=== PATIENT | female | born 1965 | race Caucasian/White ===

== ENCOUNTER → 2017-09-10 13:37 | Outpatient (REF) | payer MEDICAID, SELFPAY ==
[2017-09-10 17:54] LABS: Hemoglobin A1C 8.8 % (0.0-7.0)
[2017-09-10 18:04] LABS: Alanine Aminotransferase 21 U/L (12-78); Albumin Level 3.1 gm/dL (3.4-5.0); Albumin/Globulin Ratio 0.9 (1.1-1.8); Alkaline Phosphatase 78 U/L (46-116); Anion Gap 11.5 mEq/L (5-15); Aspartate Amino Transferase 8 U/L (15-37); Bilirubin,Total 0.3 mg/dL (0.2-1.0); Blood Urea Nitrogen 10 mg/dL (7-18); Calcium 8.4 mg/dL (8.5-10.1); Carbon Dioxide 27 mmol/L (21.0-32.0); Chloride 103 mmol/L (98-107); Chol/HDL Ratio 5.2 (1-3.5); Cholesterol 192 mg/dL (140-200); Creatinine,Serum 0.84 mg/dL (0.55-1.02); Estimated Glomerular Filt Rate 72 ml/min (>60); GFR (African American) 87 ML/MIN (>60); Globulin 3.4 gm/dl (1.3-3.2); Glucose 245 mg/dL (74-106); HDL Cholesterol 37 mg/dL (29-89); LDL Cholesterol 120 mg/dL (0-130); Potassium 4.5 mmoL/L (3.5-5.1); Sodium 137 mmol/L (136-145); T4 (Thyroxine) 9.4 ug/dl (4.7-13.3); Total Protein,Serum 6.5 gm/dL (6.4-8.2); Triglycerides 174 mg/dL (30-200); VLDL Cholesterol 35 mg/dL (0-40)
[2017-09-10 20:00] LABS: Basophils # 0.1 K/mm3 (0-0.2); Basophils % 0.7 % (0.1-2.0); Eosinophils # 0.3 K/mm3 (0.0-0.4); Eosinophils % 2.6 % (0.1-12.0); Hematocrit 47.3 % (37.0-47.0); Hemoglobin 15.7 g/dL (12.2-16.2); Lymphocytes # 2.7 K/mm3 (0.7-4.5); Lymphocytes % 24.1 K/mm3 (10-50); Mean Corpuscular HGB Conc 33.1 g/dL (31.8-35.4); Mean Corpuscular Hemoglobin 30.3 pg (27.0-31.2); Mean Corpuscular Volume 91.6 fl (81-99); Mean Platelet Volume 9.5 fl (7.4-10.4); Monocytes # 0.4 K/mm3 (0.1-1.0); Monocytes % 3.6 % (1.7-9.3); Neutrophils # 7.7 K/mm3 (1.8-7.8); Platelet Count 210 K/mm3 (142-424); Red Blood Count 5.17 M/mm3 (4.20-5.40); Red Cell Distribution Width 13.5 % (11.5-17.5); White Blood Count 11.1 K/mm3 (4.8-10.8)
[2017-09-12 18:00] LABS: Lithium (Eskalith(R)) 0.3 mmol/L (0.6-1.2); Vitamin D 25 Hydroxy 38.1 ng/mL (30.0-100.0)
[2017-09-12 18:01] LABS: Microalbumin, Urine 4.4 ug/mL (Not Estab.)
== END ==
LOC: LAB 13:37
PROVIDERS: Visit Provider Physician Assistant
DX: E11.40 Type 2 diabetes mellitus with diabetic neuropathy, unspecified (principal); Z79.899 Other long term (current) drug therapy
CPT/HCPCS: 80053; 80061; 80178; 82043; 82652; 83036; 84436; 84443; 85025

== ENCOUNTER → 2017-10-14 14:35 | Outpatient (POV) | payer MEDICAID, SELFPAY | PROVIDERS: Family Provider Emergency Medicine; PCP Physician Assistant | DX: Z00.00 Encounter for general adult medical examination without abnormal findings (principal) ==

== ENCOUNTER → 2018-03-18 16:19 | Outpatient (REF) | payer MEDICAID, SELFPAY ==
[2018-03-18 18:28] LABS: Basophils # 0.1 K/mm3 (0-0.2); Basophils % 0.7 % (0.1-2.0); Eosinophils # 0.4 K/mm3 (0.0-0.4); Eosinophils % 2.8 % (0.1-12.0); Hemoglobin 15.5 g/dL (12.2-16.2); Lymphocytes % 22.3 K/mm3 (10-50); Mean Corpuscular HGB Conc 32.2 g/dL (31.8-35.4); Mean Corpuscular Hemoglobin 28.5 pg (27.0-31.2); Mean Corpuscular Volume 88.5 fl (81-99); Mean Platelet Volume 8.1 fl (7.4-10.4); Monocytes # 0.5 K/mm3 (0.1-1.0); Monocytes % 3.5 % (1.7-9.3); Neutrophils # 9.6 K/mm3 (1.8-7.8); Neutrophils % 70.7 % (37.0-80.0); Platelet Count 301 K/mm3 (142-424); Red Blood Count 5.43 M/mm3 (4.20-5.40); Red Cell Distribution Width 13.4 % (11.5-17.5); White Blood Count 13.6 K/mm3 (4.8-10.8)
[2018-03-18 19:12] LABS: Alanine Aminotransferase 15 U/L (12-78); Albumin Level 3.3 gm/dL (3.4-5.0); Albumin/Globulin Ratio 0.8 (1.1-1.8); Alkaline Phosphatase 82 U/L (46-116); Anion Gap 14.1 mEq/L (5-15); Aspartate Amino Transferase 12 U/L (15-37); Bilirubin,Total 0.3 mg/dL (0.2-1.0); Blood Urea Nitrogen 11 mg/dL (7-18); Calcium 9.3 mg/dL (8.5-10.1); Carbon Dioxide 26 mmol/L (21.0-32.0); Chloride 103 mmol/L (98-107); Cholesterol 191 mg/dL (140-200); Creatinine,Serum 0.78 mg/dL (0.55-1.02); Estimated Glomerular Filt Rate 78 ml/min (>60); GFR (African American) 95 ML/MIN (>60); Globulin 3.9 gm/dl (1.3-3.2); Glucose 171 mg/dL (74-106); HDL Cholesterol 38 mg/dL (29-89); LDL Cholesterol 116 mg/dL (0-130); Potassium 4.1 mmoL/L (3.5-5.1); Sodium 139 mmol/L (136-145); T4 (Thyroxine) 10.2 ug/dl (4.7-13.3); Thyroid Stimulating Hormone 1.31 uIU/ml (0.358-3.740); Total Protein,Serum 7.2 gm/dL (6.4-8.2); Triglycerides 187 mg/dL (30-200); VLDL Cholesterol 37 mg/dL (0-40)
[2018-03-18 19:37] LABS: Hemoglobin A1C 7.6 % (0.0-7.0)
[2018-03-20 20:26] LABS: Vitamin D 25 Hydroxy 39.7 ng/mL (30.0-100.0)
== END ==
LOC: LAB 16:19
PROVIDERS: Visit Provider Physician Assistant
DX: E11.9 Type 2 diabetes mellitus without complications (principal); E78.5 Hyperlipidemia, unspecified
CPT/HCPCS: 80053; 80061; 82652; 83036; 84436; 84443; 85025

== ENCOUNTER → 2018-07-27 09:08 | Outpatient (CLI) | payer MEDICAID, SELFPAY ==
--- NOTE | 2018-07-27 09:11 | XR_ITS ---
XR hand RT min 3V HISTORY: Negative the thumb and third finger ITS.REASON: Hand pain ORDERING PHYSICIAN: Minerva Cotter MD PATIENT AGE: 53 years COMPARISON: None FINDINGS: No fracture or dislocation. No lytic or blastic change. There is normal mineralization.. The joint spaces are well-preserved. No significant degenerative/arthritic changes. No erosive changes evident.. IMPRESSION: Negative, no acute finding
== END ==
PROVIDERS: PCP Physician Assistant; Visit Provider Orthopaedic Surgery
DX: M79.641 Pain in right hand (principal)
CPT/HCPCS: 73130

== ENCOUNTER 2018-07-27 10:05 | Outpatient (RCR) | payer MEDICAID, SELFPAY | END 2018-08-02 13:56 | disposition home or self-care (01) | LOC: OT 10:05 | PROVIDERS: Visit Provider Orthopaedic Surgery | DX: M65.312 Trigger thumb, left thumb (principal) | CPT/HCPCS: 97763 ==

== ENCOUNTER 2018-10-27 11:39 | Outpatient (RCR) | payer MEDICAID, SELFPAY | END 2018-10-27 12:00 | disposition home or self-care (01) | LOC: OT 11:39 | PROVIDERS: Visit Provider Orthopaedic Surgery | DX: M65.311 Trigger thumb, right thumb (principal) | CPT/HCPCS: 97763 ==

== ENCOUNTER → 2018-11-11 16:52 | Outpatient (CLI) | payer MEDICAID, SELFPAY | PROVIDERS: Visit Provider Physician Assistant | DX: N94.9 Unspecified condition associated with female genital organs and menstrual cycle (principal) | CPT/HCPCS: 87252 ==

== ENCOUNTER → 2019-03-28 13:30 | Outpatient (CLI) | payer MEDICAID, SELFPAY ==
[2019-03-28 14:02] LABS: Basophils # 0.1 K/mm3 (0-0.2); Basophils % 0.9 % (0.1-2.0); Eosinophils # 0.2 K/mm3 (0.0-0.4); Eosinophils % 1.9 % (0.1-12.0); Hematocrit 45.7 % (37.0-47.0); Lymphocytes # 3.2 K/mm3 (0.7-4.5); Lymphocytes % 30.8 % (10-50); Mean Corpuscular HGB Conc 32.8 g/dL (31.8-35.4); Mean Corpuscular Hemoglobin 29.3 pg (27.0-31.2); Mean Corpuscular Volume 89.5 fl (81-99); Monocytes # 0.5 K/mm3 (0.1-1.0); Monocytes % 4.3 % (1.7-9.3); Neutrophils # 6.6 K/mm3 (1.8-7.8); Neutrophils % 62.2 % (37.0-80.0); Platelet Count 283 K/mm3 (142-424); Red Blood Count 5.11 M/mm3 (4.20-5.40); Red Cell Distribution Width 13.5 % (11.5-17.5); White Blood Count 10.5 K/mm3 (4.8-10.8)
[2019-03-28 14:42] LABS: Alanine Aminotransferase 20 U/L (12-78); Albumin Level 3.1 gm/dL (3.4-5.0); Albumin/Globulin Ratio 0.9 (1.1-1.8); Alkaline Phosphatase 82 U/L (46-116); Anion Gap 15.3 mEq/L (5-15); Aspartate Amino Transferase 13 U/L (15-37); Bilirubin,Total 0.3 mg/dL (0.2-1.0); Blood Urea Nitrogen 6 mg/dL (7-18); Calcium 9.1 mg/dL (8.5-10.1); Carbon Dioxide 24 mmol/L (21.0-32.0); Chloride 102 mmol/L (98-107); Cholesterol 223 mg/dL (140-200); Creatinine,Serum 0.57 mg/dL (0.55-1.02); Estimated Glomerular Filt Rate 112 ml/min (>60); GFR (African American) 135 ML/MIN (>60); Globulin 3.4 gm/dl (1.3-3.2); Glucose 263 mg/dL (74-106); HDL Cholesterol 32 mg/dL (29-89); LDL Cholesterol 142 mg/dL (0-130); Potassium 4.3 mmoL/L (3.5-5.1); Sodium 137 mmol/L (136-145); T4 (Thyroxine) 10.2 ug/dl (4.7-13.3); Thyroid Stimulating Hormone 0.91 uIU/ml (0.358-3.740); Total Protein,Serum 6.5 gm/dL (6.4-8.2); Triglycerides 247 mg/dL (30-200); VLDL Cholesterol 49 mg/dL (0-40)
[2019-03-28 15:14] LABS: Hemoglobin A1C 9.8 % (0.0-7.0)
[2019-03-29 10:32] LABS: Vitamin D 25 Hydroxy 18.4 ng/mL (30.0-100.0)
== END ==
PROVIDERS: Visit Provider Physician Assistant
DX: E11.9 Type 2 diabetes mellitus without complications (principal); Z79.4 Long term (current) use of insulin; E55.9 Vitamin D deficiency, unspecified
CPT/HCPCS: 80053; 80061; 82652; 83036; 84436; 84443; 85025

== ENCOUNTER → 2019-08-04 14:59 | Outpatient (CLI) | payer MEDICAID, SELFPAY ==
[2019-08-04 15:39] LABS: Basophils # 0.1 K/mm3 (0-0.2); Basophils % 1.2 % (0.1-2.0); Eosinophils # 0.3 K/mm3 (0.0-0.4); Eosinophils % 2.2 % (0.1-12.0); Hematocrit 49.5 % (37.0-47.0); Hemoglobin 15.9 g/dL (12.2-16.2); Lymphocytes # 3.5 K/mm3 (0.7-4.5); Lymphocytes % 31.7 % (10-50); Mean Corpuscular HGB Conc 32.1 g/dL (31.8-35.4); Mean Corpuscular Hemoglobin 29.4 pg (27.0-31.2); Mean Corpuscular Volume 91.6 fl (81-99); Mean Platelet Volume 7.8 fl (7.4-10.4); Monocytes # 0.3 K/mm3 (0.1-1.0); Monocytes % 2.7 % (1.7-9.3); Neutrophils # 6.9 K/mm3 (1.8-7.8); Neutrophils % 62.2 % (37.0-80.0); Platelet Count 191 K/mm3 (142-424); Red Cell Distribution Width 12.9 % (11.5-17.5); White Blood Count 11.1 K/mm3 (4.8-10.8)
[2019-08-04 16:28] LABS: Alanine Aminotransferase 28 U/L (12-78); Albumin Level 3.1 gm/dL (3.4-5.0); Alkaline Phosphatase 93 U/L (46-116); Anion Gap 15.1 mEq/L (5-15); Aspartate Amino Transferase 16 U/L (15-37); Bilirubin,Total 0.2 mg/dL (0.2-1.0); Blood Urea Nitrogen 7 mg/dL (7-18); Calcium 8.8 mg/dL (8.5-10.1); Carbon Dioxide 24 mmol/L (21.0-32.0); Chloride 100 mmol/L (98-107); Chol/HDL Ratio 6.7 (1-3.5); Cholesterol 253 mg/dL (140-200); Creatinine,Serum 0.76 mg/dL (0.55-1.02); Estimated Glomerular Filt Rate 80 ml/min (>60); GFR (African American) 97 ML/MIN (>60); Globulin 3.1 gm/dl (1.3-3.2); Glucose 287 mg/dL (74-106); HDL Cholesterol 38 mg/dL (29-89); LDL Cholesterol 172 mg/dL (0-130); Potassium 4.1 mmoL/L (3.5-5.1); Sodium 135 mmol/L (136-145); Thyroid Stimulating Hormone 0.63 uIU/ml (0.358-3.740); Total Protein,Serum 6.2 gm/dL (6.4-8.2); Triglycerides 213 mg/dL (30-200); VLDL Cholesterol 43 mg/dL (0-40)
[2019-08-04 17:05] LABS: Hemoglobin A1C 11.1 % (0.0-7.0)
[2019-08-06 11:03] LABS: Vitamin D 25 Hydroxy 33.8 ng/mL (30.0-100.0)
[2019-08-06 11:04] LABS: Microalbumin, Urine 7.1 ug/mL (Not Estab.)
[2019-08-06 22:21] LABS: H. pylori Breath Test Negative (Negative)
== END ==
PROVIDERS: Visit Provider Physician Assistant
DX: K21.9 Gastro-esophageal reflux disease without esophagitis (principal); E11.9 Type 2 diabetes mellitus without complications; Z79.4 Long term (current) use of insulin
CPT/HCPCS: 36415; 80053; 80061; 82043; 82652; 83013; 83036; 84436; 84443; 85025

== ENCOUNTER → 2019-12-22 18:00 | Outpatient (CLI) | payer MEDICAID, SELFPAY ==
[2019-12-22 18:19] LABS: Chloride 106 mmol/L (98-107); Potassium 4.1 mmoL/L (3.5-5.1); Sodium 139 mmol/L (136-145)
[2019-12-22 18:21] LABS: Alanine Aminotransferase 16 U/L (12-78); Aspartate Amino Transferase 27 U/L (14-36); Blood Urea Nitrogen 7 mg/dl (7-17); Estimated Glomerular Filt Rate 105 ml/min (>60); GFR (African American) 127 ML/MIN (>60)
[2019-12-22 18:22] LABS: Albumin Level 3.8 g/dl (3.5-5.0); Albumin/Globulin Ratio 1.3 (1.1-1.8); Alkaline Phosphatase 100 U/L (38-126); Anion Gap 14.1 mEq/L (5-15); Bilirubin,Total 0.7 mg/dl (0.2-1.3); Calcium 9.1 mg/dl (8.4-10.2); Carbon Dioxide 23 mmol/L (22.0-30.0); Chol/HDL Ratio 4.8 (1-3.5); Cholesterol 201 mg/dl (140-200); Globulin 2.9 g/dL (1.3-3.2); Glucose 171 mg/dl (74-100); HDL Cholesterol 42 mg/dl (40-60); Total Protein,Serum 6.7 g/dl (6.3-8.2); Triglycerides 193 mg/dl (30-150); VLDL Cholesterol 39 mg/dL (0-40)
[2019-12-22 18:23] LABS: Basophils # 0.2 K/mm3 (0-0.2); Basophils % 1.9 % (0.1-2.0); Eosinophils # 0.4 K/mm3 (0.0-0.4); Eosinophils % 3.1 % (0.1-12.0); Hematocrit 50.3 % (37.0-47.0); Hemoglobin 16.1 g/dL (12.2-16.2); Lymphocytes # 2.9 K/mm3 (0.7-4.5); Lymphocytes % 25.1 % (10-50); Mean Corpuscular HGB Conc 31.9 g/dL (31.8-35.4); Mean Corpuscular Hemoglobin 29.7 pg (27.0-31.2); Mean Corpuscular Volume 93.1 fl (81-99); Mean Platelet Volume 9.2 fl (7.4-10.4); Monocytes # 0.5 K/mm3 (0.1-1.0); Monocytes % 3.9 % (1.7-9.3); Neutrophils # 7.6 K/mm3 (1.8-7.8); Platelet Count 237 K/mm3 (142-424); Red Blood Count 5.41 M/mm3 (4.20-5.40); Red Cell Distribution Width 13.9 % (11.5-17.5); White Blood Count 11.5 K/mm3 (4.8-10.8)
[2019-12-22 18:33] LABS: Direct LDL Cholesterol 152.81 mg/dL (100-129)
[2019-12-22 18:39] LABS: T4 (Thyroxine) 10.8 ug/dl (5.53-11.0)
[2019-12-22 18:53] LABS: Thyroid Stimulating Hormone 0.93 uIU/mL (0.465-4.68)
[2019-12-22 19:57] LABS: Hemoglobin A1C 8.5 % (4.0-6.0)
[2019-12-24 13:53] LABS: Vitamin D 25 Hydroxy 38.9 ng/mL (30.0-100.0)
== END ==
PROVIDERS: Visit Provider Physician Assistant
DX: E11.9 Type 2 diabetes mellitus without complications (principal); Z79.4 Long term (current) use of insulin
CPT/HCPCS: 80053; 80061; 82652; 83036; 84436; 84443; 85025

== ENCOUNTER → 2020-03-16 07:09 | Outpatient (CLI) | payer MEDICAID, SELFPAY ==
--- NOTE | 2020-03-16 07:10 | CA_ITS ---
APPROVED REPORT Hospital Nurse Liaison: CT Laterality: Bilateral Indications: dizziness, bilateral carotid bruits Risk Factors Hypertension: Doppler Spectral Velocity Analysis ECA (R) 120.00/19.60 cm/s ECA (L) 161.00/146.00 cm/s dICA (R) 111.00/36.30 cm/s dICA (L) 108.00/40.20 cm/s Hanna (R) 94.30/33.30 cm/s Hanna (L) 109.00/37.10 cm/s pICA (R) 84.10/27.50 cm/s pICA (L) 110.00/35.80 cm/s dCCA (R) 77.80/18.90 cm/s dCCA (L) 80.50/24.50 cm/s pCCA (R) 104.00/28.30 cm/s pCCA (L) 96.20/33.30 cm/s Vert (R) 44.60/ cm/s Vert (L) 38.70/ cm/s ICA/CCA 1.43 ICA/CCA 1.37 Findings Duplex evaluation demonstrates stenosis of the right proximal internal carotid artery <20% with PSV <140 cm/sec, EDV <100 cm/sec, and IC/CC Ratio <4.0. Duplex evaluation demonstrates stenosis of the left proximal internal carotid artery <20% with PSV <140 cm/sec, EDV <100 cm/sec, and IC/CC Ratio <4.0. Duplex evaluation demonstrates antegrade flow of the bilateral Vertebral Arteries. Conclusion Duplex evaluation demonstrates stenosis of the right proximal internal carotid artery <20% with PSV <140 cm/sec, EDV <100 cm/sec, and IC/CC Ratio <4.0. Duplex evaluation demonstrates stenosis of the left proximal internal carotid artery <20% with PSV <140 cm/sec, EDV <100 cm/sec, and IC/CC Ratio <4.0. Duplex evaluation demonstrates antegrade flow of the bilateral Vertebral Arteries. Electronically signed by : Trever Levine MD 03/16/2020 15:51:33
--- NOTE | 2020-03-16 07:10 | CA_ITS ---
APPROVED REPORT EXAM: Comprehensive 2D, Doppler, and color-flow Echocardiogram [employer] Mechanic: Arminda Borjas CRT Ht: 5 ft 7 in Wt: 254lbs BSA: 2.24 BP: 150/74 mmHg Indications: SOA,DIZZINESS,CAD,GERD,STENT,ALAS,SMOKER,DM,HLD,HTN 2D Dimensions LVOT 2.01 cm (M/F) 1.5-2.5 M-Mode Dimensions RVDd 2.46 cm (0.9-2.6) LVDd 4.43 cm (3.5-5.7) LVDs 2.57 cm (3.5-5.7) IVSd 1.54 cm (0.6-1.1) PWd 0.75 cm (0.6-1.1) EF (Teich) 73.20% FS 42.00% EDV (Teich) 89.10 mL ESV (Teich) 23.90 mL LV Diastology E/A Ratio 0.58 Mitral Valve MV A Velocity 82.00 (40-130 cm/s) Left Ventricle Left atrium is mildly enlarged, left ventricle is normal size, mild concentric left ventricular hypertrophy, visually estimated ejection fraction 55% with no regional wall motion abnormality. Grade 1 diastolic dysfunction seen without tissue Doppler evidence of raise left atrial pressure. Right Ventricle Right atrium and right ventricle are normal size and contractility. Aortic Valve Aortic valve is minimally thickened and fibrosed, there is no aortic stenosis or aortic insufficiency. Mitral Valve Mitral valve is grossly normal, there is mild mitral regurgitation. Tricuspid Valve Tricuspid valve is grossly normal, there is mild tricuspid regurgitation, tricuspid regurgitation jet velocity is inadequate for calculation of the right ventricular systolic pressure. Pulmonic Valve Pulmonic valve is poorly visualized. Great Vessels Aortic root is normal size. Pericardium No significant pericardial effusion noted. Conclusion 1. Mildly enlarged left atrium, normal left ventricular size, mild concentric left ventricular hypertrophy, visually estimated ejection fraction 55% with no regional wall motion abnormality, grade 1 diastolic dysfunction seen without tissue Doppler evidence of raise left atrial pressure. 2. Mild mitral and tricuspid regurgitation. 3. No significant pericardial effusion noted. Electronically signed by : Ciro Schafer, 03/16/2020 14:13:36
== END ==
PROVIDERS: PCP Physician Assistant; Visit Provider Internal Medicine Cardiovascular Disease
DX: R42 Dizziness and giddiness (principal); R09.89 Other specified symptoms and signs involving the circulatory and respiratory systems; E11.8 Type 2 diabetes mellitus with unspecified complications; E78.5 Hyperlipidemia, unspecified; I10 Essential (primary) hypertension; I25.10 Atherosclerotic heart disease of native coronary artery without angina pectoris; Z79.4 Long term (current) use of insulin
CPT/HCPCS: 93306; 93880

== ENCOUNTER → 2020-03-16 08:51 | Outpatient (CLI) | payer MEDICAID, SELFPAY ==
[2020-03-16 10:21] LABS: Chloride 105 mmol/L (98-107); Potassium 3.6 mmoL/L (3.5-5.1); Sodium 142 mmol/L (136-145)
[2020-03-16 10:24] LABS: Anion Gap 11.6 mEq/L (5-15); Blood Urea Nitrogen 3 mg/dl (7-17); Carbon Dioxide 29 mmol/L (22.0-30.0); Estimated Glomerular Filt Rate 130 ml/min (>60); GFR (African American) 157 ML/MIN (>60); Glucose 94 mg/dl (74-100)
[2020-03-16 10:33] LABS: NT Pro Brain Natriuretic Pep. 75.9 pg/mL (0-125)
== END ==
PROVIDERS: Visit Provider Internal Medicine Cardiovascular Disease
DX: R42 Dizziness and giddiness (principal); I25.10 Atherosclerotic heart disease of native coronary artery without angina pectoris; E11.8 Type 2 diabetes mellitus with unspecified complications; E78.5 Hyperlipidemia, unspecified; I10 Essential (primary) hypertension; Z79.4 Long term (current) use of insulin
CPT/HCPCS: 36415; 80048; 83880

== ENCOUNTER → 2020-09-19 13:47 | Outpatient (CLI) | payer MEDICAID, SELFPAY ==
[2020-09-19 14:16] LABS: Basophils # 0.1 K/mm3 (0-0.2); Eosinophils # 0.3 K/mm3 (0.0-0.4); Eosinophils % 2.5 % (0.1-12.0); Hemoglobin 14.2 g/dL (12.2-16.2); Lymphocytes % 26.8 % (10-50); Mean Corpuscular HGB Conc 32.9 g/dL (31.8-35.4); Mean Corpuscular Hemoglobin 29.6 pg (27.0-31.2); Mean Corpuscular Volume 89.7 fl (81-99); Mean Platelet Volume 9.2 fl (7.4-10.4); Monocytes # 0.4 K/mm3 (0.1-1.0); Monocytes % 3.3 % (1.7-9.3); Neutrophils # 7.5 K/mm3 (1.8-7.8); Neutrophils % 66.4 % (37.0-80.0); Platelet Count 189 K/mm3 (142-424); Red Blood Count 4.79 M/mm3 (4.20-5.40); Red Cell Distribution Width 13.6 % (11.5-17.5); White Blood Count 11.3 K/mm3 (4.8-10.8)
[2020-09-19 14:31] LABS: Creatinine,Urine Random 45 mg/dL (Not Estab.)
[2020-09-19 14:33] LABS: Microalbumin/Creatinine Ratio 16.4
[2020-09-19 14:34] LABS: Chloride 106 mmol/L (98-107); Potassium 4.3 mmoL/L (3.5-5.1); Sodium 140 mmol/L (136-145)
[2020-09-19 14:37] LABS: Alanine Aminotransferase 17 U/L (12-78); Albumin Level 3.6 g/dl (3.5-5.0); Albumin/Globulin Ratio 1.2 (1.1-1.8); Alkaline Phosphatase 90 U/L (38-126); Anion Gap 11.3 mEq/L (5-15); Aspartate Amino Transferase 23 U/L (14-36); Bilirubin,Total 0.4 mg/dl (0.2-1.3); Blood Urea Nitrogen 8 mg/dl (7-17); Calcium 9.2 mg/dl (8.4-10.2); Carbon Dioxide 27 mmol/L (22.0-30.0); Cholesterol 169 mg/dl (140-200); Estimated Glomerular Filt Rate 105 ml/min (>60); GFR (African American) 127 ML/MIN (>60); Globulin 3.1 g/dL (1.3-3.2); Glucose 237 mg/dl (74-100); Total Protein,Serum 6.7 g/dl (6.3-8.2); Triglycerides 185 mg/dl (30-150); VLDL Cholesterol 37 mg/dL (0-40)
[2020-09-19 14:38] LABS: Chol/HDL Ratio 3.9 (1-3.5); HDL Cholesterol 43 mg/dl (40-60)
[2020-09-19 14:57] LABS: T4 (Thyroxine) 10.2 ug/dl (5.53-11.0)
[2020-09-19 15:06] LABS: Direct LDL Cholesterol 103.21 mg/dL (100-129)
[2020-09-19 15:10] LABS: Thyroid Stimulating Hormone 1.87 uIU/mL (0.465-4.68)
[2020-09-19 16:14] LABS: Hemoglobin A1C 9.5 % (4.0-6.0)
== END ==
PROVIDERS: Visit Provider Nurse Practitioner Family
DX: E11.9 Type 2 diabetes mellitus without complications (principal); E78.5 Hyperlipidemia, unspecified; I10 Essential (primary) hypertension; Z79.4 Long term (current) use of insulin; Z68.41 Body mass index [BMI] 40.0-44.9, adult
CPT/HCPCS: 80053; 80061; 82043; 82306; 82570; 83036; 84436; 84443; 85025

== ENCOUNTER → 2021-01-24 14:19 | Outpatient (CLI) | payer MEDICAID, SELFPAY ==
[2021-01-24 14:29] LABS: Basophils # 0.1 K/mm3 (0-0.2); Basophils % 1.2 % (0.1-2.0); Eosinophils # 0.2 K/mm3 (0.0-0.4); Eosinophils % 2.1 % (0.1-12.0); Hematocrit 41.9 % (37.0-47.0); Hemoglobin 13.7 g/dL (12.2-16.2); Lymphocytes # 3.3 K/mm3 (0.7-4.5); Lymphocytes % 28.4 % (10-50); Mean Corpuscular HGB Conc 32.8 g/dL (31.8-35.4); Mean Corpuscular Hemoglobin 29.2 pg (27.0-31.2); Mean Corpuscular Volume 88.9 fl (81-99); Mean Platelet Volume 9.2 fl (7.4-10.4); Monocytes # 0.5 K/mm3 (0.1-1.0); Monocytes % 4.1 % (1.7-9.3); Neutrophils # 7.4 K/mm3 (1.8-7.8); Neutrophils % 64.1 % (37.0-80.0); Platelet Count 197 K/mm3 (142-424); Red Blood Count 4.71 M/mm3 (4.20-5.40); Red Cell Distribution Width 14.5 % (11.5-17.5); White Blood Count 11.5 K/mm3 (4.8-10.8)
[2021-01-24 14:39] LABS: Alanine Aminotransferase 18 U/L (12-78); Albumin Level 3.4 g/dl (3.5-5.0); Albumin/Globulin Ratio 1.2 (1.1-1.8); Alkaline Phosphatase 85 U/L (38-126); Anion Gap 13.8 mEq/L (5-15); Aspartate Amino Transferase 30 U/L (14-36); Bilirubin,Total 0.7 mg/dl (0.2-1.3); Blood Urea Nitrogen 12 mg/dl (7-17); Calcium 8.5 mg/dl (8.4-10.2); Carbon Dioxide 23 mmol/L (22.0-30.0); Chloride 106 mmol/L (98-107); Chol/HDL Ratio 5.8 (1-3.5); Cholesterol 180 mg/dl (140-200); Estimated Glomerular Filt Rate 58 ml/min (>60); GFR (African American) 70 ML/MIN (>60); Globulin 2.9 g/dL (1.3-3.2); Glucose 265 mg/dl (74-100); HDL Cholesterol 31 mg/dl (40-60); Potassium 3.8 mmoL/L (3.5-5.1); Sodium 139 mmol/L (136-145); Total Protein,Serum 6.3 g/dl (6.3-8.2); Triglycerides 214 mg/dl (30-150); VLDL Cholesterol 43 mg/dL (0-40)
[2021-01-24 14:49] LABS: Direct LDL Cholesterol 112.47 mg/dL (100-129)
[2021-01-24 14:50] LABS: Hemoglobin A1C 7.7 % (4.0-6.0)
[2021-01-24 14:58] LABS: 25-OH Vitamin D, Total 41.9 ng/mL (30-100); Free T4 (Free Thyroxine) 1.34 ng/dl (0.78-2.19)
== END ==
PROVIDERS: Visit Provider Physician Assistant
DX: I25.10 Atherosclerotic heart disease of native coronary artery without angina pectoris (principal); E11.9 Type 2 diabetes mellitus without complications; E78.5 Hyperlipidemia, unspecified; F41.9 Anxiety disorder, unspecified; E66.9 Obesity, unspecified; Z68.41 Body mass index [BMI] 40.0-44.9, adult; Z79.4 Long term (current) use of insulin
CPT/HCPCS: 80053; 80061; 82306; 83036; 84439; 84443; 85025

== ENCOUNTER → 2021-02-08 07:52 | Outpatient (CLI) | payer MEDICAID, SELFPAY ==
--- NOTE | 2021-02-08 07:53 | MM_ITS ---
PROCEDURE: MM DIG SCREENING MAMM BI W/CAD Digital Breast Tomosynthesis Included CLINICAL INDICATION: Breast cancer screening COMPARISON: MG DIGITAL DIAG BILAT from 12/15/2013 TECHNIQUE: Standard CC and MLO images and 3D Tomosynthesis was obtained. R2 CAD reviewed. FINDINGS: There is average fibroglandular tissue. No malignant appearing mass or malignant-appearing microcalcification. No skin thickening, architectural distortion, or axillary adenopathy apparent IMPRESSION: Negative. No evidence of malignancy BI-RAD Category: 1 Negative FOLLOW-UP: 1 YR 1 Year Follow-up (A letter has been sent to the patient regarding results of the study.) Dictated by: Trever Levine MD 02/14/2021 11:59 Trever Levine MD in [place] 02/14/2021 11:59
== END ==
PROVIDERS: PCP Physician Assistant; Visit Provider Physician Assistant
DX: Z12.31 Encounter for screening mammogram for malignant neoplasm of breast (principal)
CPT/HCPCS: 77063; 77067

== ENCOUNTER → 2021-09-03 16:00 | Outpatient (CLI) | payer MEDICAID, SELFPAY ==
[2021-09-03 14:27] LABS: Alanine Aminotransferase 21 U/L (12-78); Albumin/Globulin Ratio 1.5 (1.1-1.8); Alkaline Phosphatase 80 U/L (38-126); Anion Gap 10.8 mEq/L (5-15); Aspartate Amino Transferase 31 U/L (14-36); Bilirubin,Total 0.6 mg/dl (0.2-1.3); Blood Urea Nitrogen 11 mg/dl (7-17); Calcium 9.2 mg/dl (8.4-10.2); Carbon Dioxide 28 mmol/L (22.0-30.0); Chloride 103 mmol/L (98-107); Chol/HDL Ratio 6.4 (1-3.5); Cholesterol 199 mg/dl (140-200); Estimated Glomerular Filt Rate 104 ml/min (>60); GFR (African American) 126 ML/MIN (>60); Globulin 2.7 g/dL (1.3-3.2); Glucose 162 mg/dl (74-100); HDL Cholesterol 31 mg/dl (40-60); Potassium 3.8 mmoL/L (3.5-5.1); Sodium 138 mmol/L (136-145); Total Protein,Serum 6.7 g/dl (6.3-8.2); Triglycerides 187 mg/dl (30-150); VLDL Cholesterol 37 mg/dL (0-40)
[2021-09-03 14:38] LABS: Direct LDL Cholesterol 139.68 mg/dL (100-129); Hemoglobin A1C 8.9 % (4.0-6.0)
[2021-09-03 14:43] LABS: 25-OH Vitamin D, Total 38.9 ng/mL (30-100)
[2021-09-03 14:46] LABS: Basophils # 0.1 K/mm3 (0-0.2); Basophils % 0.8 % (0.1-2.0); Eosinophils # 0.2 K/mm3 (0.0-0.4); Eosinophils % 1.9 % (0.1-12.0); Hematocrit 45.5 % (37.0-47.0); Lymphocytes # 3.1 K/mm3 (0.7-4.5); Lymphocytes % 26.1 % (10-50); Mean Corpuscular HGB Conc 32.9 g/dL (31.8-35.4); Mean Corpuscular Hemoglobin 29.8 pg (27.0-31.2); Mean Corpuscular Volume 90.5 fl (81-99); Mean Platelet Volume 9.2 fl (7.4-10.4); Monocytes # 0.5 K/mm3 (0.1-1.0); Neutrophils # 7.8 K/mm3 (1.8-7.8); Neutrophils % 67.1 % (37.0-80.0); Platelet Count 243 K/mm3 (142-424); Red Blood Count 5.03 M/mm3 (4.20-5.40); White Blood Count 11.7 K/mm3 (4.8-10.8)
[2021-09-03 14:58] LABS: Thyroid Stimulating Hormone 3.42 uIU/mL (0.465-4.68)
== END ==
PROVIDERS: Visit Provider Physician Assistant
DX: Z00.00 Encounter for general adult medical examination without abnormal findings (principal); E11.9 Type 2 diabetes mellitus without complications; R53.83 Other fatigue; E66.01 Morbid (severe) obesity due to excess calories; Z68.41 Body mass index [BMI] 40.0-44.9, adult; Z79.4 Long term (current) use of insulin
CPT/HCPCS: 80053; 80061; 82306; 83036; 84443; 85025

== ENCOUNTER → 2022-01-08 16:32 | Outpatient (CLI) | payer MEDICAID, SELFPAY ==
[2022-01-08 13:52] LABS: Chloride 102 mmol/L (98-107); Potassium 3.9 mmoL/L (3.5-5.1); Sodium 136 mmol/L (136-145)
[2022-01-08 13:54] LABS: Alanine Aminotransferase 19 U/L (12-78); Alkaline Phosphatase 84 U/L (38-126); Aspartate Amino Transferase 35 U/L (14-36); Bilirubin,Total 0.5 mg/dl (0.2-1.3); Blood Urea Nitrogen 8 mg/dl (7-17); Estimated Glomerular Filt Rate 75 ml/min (>60); GFR (African American) 90 ML/MIN (>60)
[2022-01-08 13:55] LABS: Albumin Level 3.6 g/dl (3.5-5.0); Albumin/Globulin Ratio 1.3 (1.1-1.8); Anion Gap 9.9 mEq/L (5-15); Calcium 9.2 mg/dl (8.4-10.2); Carbon Dioxide 28 mmol/L (22.0-30.0); Cholesterol 92 mg/dl (140-200); Globulin 2.8 g/dL (1.3-3.2); Glucose 200 mg/dl (74-100); HDL Cholesterol 31 mg/dl (40-60); Total Protein,Serum 6.4 g/dl (6.3-8.2); Triglycerides 130 mg/dl (30-150); VLDL Cholesterol 26 mg/dL (0-40)
[2022-01-08 14:01] LABS: Basophils # 0.2 K/mm3 (0-0.2); Basophils % 1.5 % (0.1-2.0); Eosinophils # 0.2 K/mm3 (0.0-0.4); Eosinophils % 1.6 % (0.1-12.0); Hematocrit 42.3 % (37.0-47.0); Hemoglobin 13.9 g/dL (12.2-16.2); Lymphocytes # 2.7 K/mm3 (0.7-4.5); Lymphocytes % 24.5 % (10-50); Mean Corpuscular HGB Conc 32.9 g/dL (31.8-35.4); Mean Corpuscular Hemoglobin 30.7 pg (27.0-31.2); Mean Corpuscular Volume 93.4 fl (81-99); Mean Platelet Volume 9.1 fl (7.4-10.4); Monocytes # 0.5 K/mm3 (0.1-1.0); Monocytes % 4.6 % (1.7-9.3); Neutrophils # 7.4 K/mm3 (1.8-7.8); Neutrophils % 67.8 % (37.0-80.0); Platelet Count 239 K/mm3 (142-424); Red Blood Count 4.53 M/mm3 (4.20-5.40); Red Cell Distribution Width 14.3 % (11.5-17.5); White Blood Count 10.9 K/mm3 (4.8-10.8)
[2022-01-08 14:18] LABS: Direct LDL Cholesterol 41.56 mg/dL (100-129)
[2022-01-08 14:23] LABS: Hemoglobin A1C 7.6 % (4.0-6.0)
[2022-01-08 14:29] LABS: 25-OH Vitamin D, Total 50.3 ng/mL (30-100)
== END ==
PROVIDERS: Visit Provider Physician Assistant
DX: E66.9 Obesity, unspecified; Z68.41 Body mass index [BMI] 40.0-44.9, adult; Z79.4 Long term (current) use of insulin; E11.40 Type 2 diabetes mellitus with diabetic neuropathy, unspecified; Z79.899 Other long term (current) drug therapy
CPT/HCPCS: 80053; 80061; 82306; 83036; 84443; 85025

== ENCOUNTER 2022-05-16 09:25 | Day surgery (SDC) | payer MEDICAID, SELFPAY ==
[2022-05-13 16:32] VITALS: BMI 45.4
[2022-05-16 09:56] VITALS: BP 155/66; PULSE 64; RESP 18; TEMP 36.1; O2SAT 98
--- NOTE | 2022-05-16 10:05 | P.PN_ITS ---
PFSH PFS Medical History Allergic rhinitis Anxiety Bipolar depression Bipolar disorder current episode depressed Coronary artery disease Depression Diabetes mellitus Diabetic neuropathy associated with type 2 diabetes mellitus Dizziness Dyspnea GERD (gastroesophageal reflux disease) Hyperlipidemia Hypertension Neuropathy Urinary incontinence, urge Surgical History H/O exploratory laparotomy Hx of cardiac cath Family History Mother Family history of hypertension Coronary artery disease Social History Smoking Status: Current every day smoker tobacco type: cigarettes packs per day: 1 alcohol intake: former substance use type: marijuana current occupational status: disabled Travel in the last 8 weeks: None housing: house number of children: 3 caffeine: Yes do you feel safe at home: Yes victim of physical abuse: No victim of emotional abuse: No victim of sexual abuse: No would you like helpful sources: No [facility] Anesthesia Checklist Patient Identification Patient Identification: Arm Band and Verbal (Name & ) Structural Data Admitted From: Home Planned Operative Procedure/s: Pain pump placement Consent for Planned Operative Procedure(s) Verified: Yes NPO Status Verified Time NPO: 00:00 Chart Verification Results Verified: CBC and BMP Airway Assessment C-Spine Mobility Assessed: Yes TMJ Mobility Assessed: Yes Dentition: Poor Dentition Neurological Assessment Level of Consciousness: Awake Hx Seizures: No Numbness or tingling in extremities: Yes Anesthesia Plan Anesthesia Risk discussed: Yes Anesthesia Plan: Verified ASA Class: III Anesthesia Type: MAC
[2022-05-16 10:31] VITALS: O2SAT 97
--- NOTE | 2022-05-16 11:27 | HMH.SCOPE ---
Procedure: Date: 05/16/22 Patient Date of :: 1965 Procedure Performed:: Total colonoscopy to terminal ileum with multiple polypectomy Indications:: WithPatient is a 56-year-old female with history of diabetes, bipolar depression, coronary artery disease with previous stenting on Plavix, hypertension, GERD. She was referred for screening colonoscopy. She has a history of recent positive Cologuard. Performing Provider:: Roland Mckeon MD Referring Provider:: Rosio Head Sedation:: MAC sedation Procedure:: Patient history was obtained and appropriate physical examination was performed. Patient's medications and allergies were reviewed. Informed consent was obtained after explaining the benefits, alternatives, and risks of the procedure including, but not limited to, bleeding, perforation, missed lesions, and adverse reaction to anesthesia medications. Patient was transported to endoscopy procedure room. Patient was connected to monitoring devices. Throughout the procedure the patient's blood pressure, pulse, and oxygen saturations were monitored continuously. Patient identification and planned procedure were verified by the staff. Patient was positioned in lateral decubitus position. Digital anorectal exam was performed. Variable stiffness Olympus colonoscope was inserted and advanced under direct visualization to the cecum. Adequacy of the colonic preparation was noted. The colonoscope was advanced a short distance into the terminal ileum. The colonoscope was then slowly withdrawn while carefully examining the color, texture, anatomy, and integrity of the mucosoa circumferentially. Within the rectum retroflexion was performed. Colonoscope was then withdrawn. IMPRESSION: She had a fair colonic preparation throughout. Multiple polyps were encountered. Transverse colon she had a moderately large polyp removed with hot snare. This required retrieval after maceration using the Cook net. In the sigmoid colon there were 3 polyps removed with cold cutting snare. In the distal sigmoid there was a moderate polyp removed with hot snare. In the rectosigmoid region there were several hyperplastic appearing polyps which were biopsied with cold biopsy forceps and snare. In the distal rectum there were a couple of polyps which were removed with snare, cold. Retroflexion within the rectum revealed nonpathologic internal hemorrhoids. Findings:: She had fair colonic preparation Some sigmoid diverticuli Polyps as noted above, total of 10 polyps removed Recommendations:: Follow-up colonoscopy pending pathology. Likely 1 to 2 years with more aggressive multi day preparation given the suboptimal preparation. Complications:: None immediately apparent Estimated blood obtained (mL): 2
[2022-05-16 11:30] VITALS: BP 146/78; PULSE 65; RESP 18; TEMP 36; O2SAT 91
[2022-05-16 11:40] VITALS: BP 166/86; PULSE 68; RESP 19; O2SAT 92
[2022-05-16 11:50] VITALS: BP 181/97; PULSE 62; RESP 18; O2SAT 97
[2022-05-16 12:00] VITALS: BP 171/83; PULSE 62; RESP 18; O2SAT 96
[2022-05-16 16:27] LABS: POC Glucose,Bedside 157 (70-110)
== END 2022-05-16 12:13 | disposition home or self-care (01) ==
PROVIDERS: PCP Physician Assistant; Visit Provider Surgery
PROC: 0DJD8ZZ Inspection of Lower Intestinal Tract, Via Natural or Artificial Opening Endoscopic (ICD-10-PCS; CPT 45380; principal; 2022-05-16 10:30)
DX: Z12.11 Encounter for screening for malignant neoplasm of colon (principal); R19.5 Other fecal abnormalities; K63.5 Polyp of colon; Z72.0 Tobacco use; Z79.899 Other long term (current) drug therapy; E11.9 Type 2 diabetes mellitus without complications
CPT/HCPCS: 45380; 45385; 82962

== ENCOUNTER → 2022-08-18 10:00 | Outpatient (CLI) | payer MEDICAID, SELFPAY ==
[2022-08-18 14:55] LABS: Basophils # 0.2 K/mm3 (0-0.2); Basophils % 1.4 % (0.1-2.0); Eosinophils # 0.3 K/mm3 (0.0-0.4); Eosinophils % 1.9 % (0.1-12.0); Hematocrit 45.3 % (37.0-47.0); Hemoglobin 15.2 g/dL (12.2-16.2); Lymphocytes # 4.4 K/mm3 (0.7-4.5); Lymphocytes % 27.6 % (10-50); Mean Corpuscular HGB Conc 33.6 g/dL (31.8-35.4); Mean Corpuscular Hemoglobin 28.9 pg (27.0-31.2); Mean Corpuscular Volume 85.9 fl (81-99); Mean Platelet Volume 9.9 fl (7.4-10.4); Monocytes # 0.7 K/mm3 (0.1-1.0); Monocytes % 4.2 % (1.7-9.3); Neutrophils # 10.3 K/mm3 (1.8-7.8); Platelet Count 223 K/mm3 (142-424); Red Blood Count 5.28 M/mm3 (4.20-5.40); Red Cell Distribution Width 14.6 % (11.5-17.5); White Blood Count 15.8 K/mm3 (4.8-10.8)
[2022-08-18 15:04] LABS: Alanine Aminotransferase 22 U/L (12-78); Albumin Level 3.8 g/dl (3.5-5.0); Albumin/Globulin Ratio 1.4 (1.1-1.8); Alkaline Phosphatase 101 U/L (38-126); Anion Gap 11.5 mEq/L (5-15); Aspartate Amino Transferase 32 U/L (14-36); Bilirubin,Total 0.6 mg/dl (0.2-1.3); Blood Urea Nitrogen 12 mg/dl (7-17); Carbon Dioxide 29 mmol/L (22.0-30.0); Chloride 96 mmol/L (98-107); Chol/HDL Ratio 2.9 (1-3.5); Cholesterol 99 mg/dl (140-200); Estimated Glomerular Filt Rate 74 ml/min (>60); GFR (African American) 90 ML/MIN (>60); Globulin 2.8 g/dL (1.3-3.2); Glucose 289 mg/dl (74-100); HDL Cholesterol 34 mg/dl (40-60); MANUAL DIFFERENTIAL MANUAL DIFFERENTIAL (MANUAL DIFF); Potassium 3.5 mmoL/L (3.5-5.1); Sodium 133 mmol/L (136-145); Total Protein,Serum 6.6 g/dl (6.3-8.2); Triglycerides 205 mg/dl (30-150); VLDL Cholesterol 41 mg/dL (0-40)
[2022-08-18 15:17] LABS: Direct LDL Cholesterol 46.71 mg/dL (100-129)
[2022-08-18 15:20] LABS: 25-OH Vitamin D, Total 42.6 ng/mL (30-100)
[2022-08-18 15:34] LABS: Hemoglobin A1C 9.4 % (4.0-6.0); Thyroid Stimulating Hormone 3.08 uIU/mL (0.465-4.68)
[2022-08-18 15:51] LABS: Eosinophils % 1 % (0-3); Lymphocytes % 40 % (10-50); Monocytes % 2 % (2-9); Neutrophils % 57 % (42-76); Total Cells Counted 100
[2022-08-18 15:52] LABS: Platelet Estimate Normal; RBC Morphology Normal
== END ==
PROVIDERS: PCP Physician Assistant; Visit Provider Physician Assistant
DX: E11.9 Type 2 diabetes mellitus without complications (principal); E66.9 Obesity, unspecified; Z68.41 Body mass index [BMI] 40.0-44.9, adult; Z79.4 Long term (current) use of insulin; Z79.899 Other long term (current) drug therapy
CPT/HCPCS: 80053; 80061; 82043; 82306; 83036; 84443; 85007; 85025

== ENCOUNTER 2022-12-19 09:30 | Outpatient (RCR) | payer MEDICAID, SELFPAY ==
--- NOTE | 2022-12-03 08:48 | HMH.PTOPEV ---
PT Outpatient Evaluation Rehab PT Outpatient Evaluation Start: 12/03/22 08:30 Freq: Status: Active Protocol: Document 12/03/22 08:30 MARY (Rec: 12/03/22 08:48 MARY [id number]) E-signed By Jono Jamil, PT Outpatient Therapy Subjective History Subjective History Patient is a 57 year old female presenting to outpatient PT with reports of chronic LBP with intermittent BLE symptoms of insidious onset starting approx 1 year ago. No recent imaging to to report. LE symptoms L greater than R. Special tests indicate L upslip of the innominant. Comorbidities include hx of diabetes, CV stent x 1, HTN and HL. Chief Complaint Pain,Spasms,Stiff,Paresthesia Symptom Type Burning,Shooting Symptoms Relieved By Rest/Positioning Symptoms Aggravated By Sitting,Standing,Bending/ Stooping,Physical Activity, Walking,Lifting Prior Functional Limitations None Current Functional Limitations Lifting,Housework,Standing, Sitting,Walking,Bending/ Stooping Symptom Description Constant but Variable Level of pain today (0-10) 1 Pain scale - at its best (0-10) 1 Pain scale - at its worst (0-10) 8 Lumbopelvic Eval Posture Thoracic Spine Posture Standing Position Increased Kyphosis Lumbar Spine Posture Standing Position Increased Lordosis Assistive device Assistive Devices None / NA Palapation tenderness bilateral lumbar spinal tenderness Yes: L4-S1 3/4 paraspinal tenderness Yes: Lumbar/Sacral Palpation Findings Tenderness Lumbar/Sacral Palpation Overall Comment B PSIS, upper gluteal mm 3/4 Accessory Movement L4 bilateral L5 bilateral S1 bilateral Range of Motion Lumbar Spine Active Flexion Range of 6 Motion (degrees) Lumbar Spine Active Extension Range of 26 Motion (degrees) Left Lumbar Spine Lateral Flexion Active 14 Range of Motion (degrees) Right Lumbar Spine Lateral Flexion 18 Active Range of Motion (degrees) Lumbar Spine ROM Limitations Soft Tissue Tightness,Bony Restriction Manual Muscle Test Bilateral Knee Extension Strength Grade 4 Good Knee Flexion Strength Grade 4 Good Hip Flexion Strength Grade 4- Good- Extensor Hallucis Longus Strength Grade 4 Go
== END 2022-12-19 09:35 | disposition home or self-care (01) ==
LOC: PT 09:30
PROVIDERS: PCP Physician Assistant; Visit Provider Physician Assistant
DX: M54.50 Low back pain, unspecified (principal)
CPT/HCPCS: 97010; 97012; 97014; 97110; 97163; G0283

== ENCOUNTER 2023-06-04 11:55 | Emergency (ER) | payer MEDICAID, SELFPAY ==
[2023-06-04 11:57] VITALS: BP 148/90; PULSE 79; RESP 18; TEMP 36.9; O2SAT 99; BMI 40.7
--- NOTE | 2023-06-04 12:22 | CT_ITS ---
FINAL REPORT TECHNIQUE: After the administration of oral and intravenous contrast, axial images were obtained through the abdomen and pelvis by computed tomography. The study was performed with techniques to keep radiation dose as low as reasonably achievable, (ALARA). Individual dose reduction techniques using automated exposure control or adjustment of mA and/or kV according to the patient's size were employed. CLINICAL HISTORY: LLQ and epigasstric pain COMPARISON: None FINDINGS: Abdomen: The lung bases are clear. The liver is moderately fatty infiltrated. The gallbladder is present. The spleen, pancreas, adrenals and kidneys appear unremarkable. The aorta is normal in caliber. There is no free fluid or adenopathy. Pelvis: The appendix is not identified. The urinary bladder is incompletely distended. There is no free fluid or adenopathy. IMPRESSION: Fatty liver. Reviewed, Interpreted and Dictated by Pankaj Perez MD Transcribed by Kristin Last Authenticated and . [facility]
--- NOTE | 2023-06-04 12:22 | XR_ITS ---
FINAL REPORT CLINICAL HISTORY: Shortness of breath, cough productive COMPARISON: none FINDINGS: The heart size is normal. The mediastinum is normal. There is no focal infiltrate or edema. There are no pleural effusions. There is no pneumothorax. There is no osseous abnormality. IMPRESSION: No acute cardiopulmonary process Reviewed, Interpreted and Dictated by Pankaj Perez MD Transcribed by Kristin Last Authenticated and [facility]
--- NOTE | 2023-06-04 12:29 | HMH.EDGENADL ---
Discharge Plan Disposition Patient Disposition: Home, Self-Care Prescriptions Prescriptions: New [id number] [Bromfed DM] 2-30-10 mg/5 mL syrup 5 ml PO Q6H PRN (Reason: cold symptoms) Qty: 118 0RF prednisone 50 mg tablet 50 mg PO DAILY 5 Days Qty: 5 0RF No Action ergocalciferol (vitamin D2) 1,250 mcg (50,000 unit) capsule 1,250 mcg PO WEEKLY Rx Instructions: TAKE ONE CAPSULE BY MOUTH ONCE a WEEK losartan-hydrochlorothiazide 100-25 mg tablet 1 tab PO DAILY Qty: 90 3RF atorvastatin 80 mg tablet 80 mg PO DAILY Qty: 90 3RF Rx Instructions: TAKE ONE TABLET BY MOUTH EVERY DAY bupropion HCl 150 mg tablet extended release 24 hr 150 mg PO DAILY Qty: 90 3RF Rx Instructions: TAKE ONE TABLET BY MOUTH EVERY DAY buspirone 10 mg tablet 10 mg PO BID Qty: 180 3RF Rx Instructions: TAKE ONE TABLET BY MOUTH TWICE DAILY Vraylar 4.5 mg capsule 4.5 mg PO DAILY Qty: 90 3RF Rx Instructions: TAKE ONE CAPSULE BY MOUTH EVERY DAY cholecalciferol (vitamin D3) 25 mcg (1,000 unit) capsule 25 mcg PO DAILY Qty: 90 3RF clopidogrel 75 mg tablet 75 mg PO DAILY Qty: 90 3RF Rx Instructions: TAKE ONE TABLET BY MOUTH EVERY DAY escitalopram oxalate 20 mg tablet 20 mg PO DAILY Qty: 90 3RF Repatha SureClick 140 mg/mL pen injector 140 mg SQ Q2W Qty: 2 12RF Rx Instructions: INJECT THE contents of 1 AUTO-INJECTOR (140mg) SUBCUTANEOUSLY EVERY 2 WEEKS lamotrigine [Lamictal] 100 mg tablet 100 mg PO BID Qty: 180 3RF pantoprazole 40 mg tablet,delayed release (DR/EC) 40 mg PO DAILY Qty: 90 3RF Rx Instructions: TAKE ONE TABLET BY MOUTH EVERY DAY aspirin 81 mg tablet,delayed release (DR/EC) See Rx Instructions .ROUTE .COMPLEX Qty: 90 3RF Dose Instruction: TAKE ONE TABLET BY MOUTH EVERY DAY Rx Instructions: TAKE ONE TABLET BY MOUTH EVERY DAY (DME) insulin syringe-needle U-100 [BD Insulin Syringe Ultra-Fine] 1 mL 31 gauge x 5/16 syringe See Rx Instructions .ROUTE .COMPLEX Qty: 100 12RF Dose Instruction: USE DIRECTED Rx Instructions: USE DIRECTED insulin aspart U-100 100 unit/mL solution See Rx Instructions .ROUTE .COMPLEX Qty: 30 2RF Dose Instruction: USE as directed PER sliding scale FOR omnipod (maximum of 100 units PER DAY) Rx Instructions: USE as directed PER sliding scale FOR omnipod (maximum of 100 units PER DAY) Humulin 70/30 U-100 KwikPen 100 unit/mL (70-30) insulin pen See Rx Instructions SQ .COMPLEX Qty: 15 2RF Rx Instructions: 80 units at lunchtime meal, 40 units at evening meal subcutaneously; 80 units at lunchtime meal, 40 units at evening meal Kerendia 10 mg tablet See Rx Instructions .ROUTE .COMPLEX Qty: 30 2RF Dose Instruction: TAKE ONE TABLET BY MOUTH EVERY DAY Rx Instructions: TAKE ONE TABLET BY MOUTH EVERY DAY insulin glargine 100 unit/mL (3 mL) insulin pen See Rx Instructions .ROUTE .COMPLEX Qty: 15 2RF Dose Instruction: INJECT 80 UNITS SUBCUTANEOUSLY EVERY DAY IN THE MORNING FOR diabetes Rx Instructions: INJECT 80 UNITS SUBCUTANEOUSLY EVERY DAY IN THE MORNING FOR diabetes pregabalin [Lyrica] 200 mg capsule 200 mg PO BID Qty: 60 2RF albuterol sulfate 2.5 mg /3 mL (0.083 %) solution for nebulization 2.5 mg inhalation DAILY Qty: 180 0RF Rx Instructions: INHALE THE CONTENTS OF ONE-HALF VIAL VIA NEBULIZER EVERY 4 TO 6 HOURS DIRECTED famotidine 40 mg tablet 40 mg PO DAILY Qty: 90 3RF Referrals Follow up/Referrals: Rosio Head PA [Primary Care Provider] - See instructions Activity Restrictions/Add. Instructions Additional Instructions/Restrictions: At this time it was felt you are safe to be discharged home. If new or worsening symptoms please do not hesitate to return the emergency department. If symptoms persist please follow-up with your family doctor as you are a
[2023-06-04 12:30] LABS: Basophils # 0.1 K/mm3 (0-0.2); Basophils % 0.7 % (0.1-2.0); Eosinophils # 0.3 K/mm3 (0.0-0.4); Eosinophils % 2.1 % (0.1-12.0); Hematocrit 42.1 % (37.0-47.0); Hemoglobin 14.4 g/dL (12.2-16.2); Lymphocytes # 2.7 K/mm3 (0.7-4.5); Lymphocytes % 22.9 % (10-50); Mean Corpuscular HGB Conc 34.3 g/dL (31.8-35.4); Mean Corpuscular Hemoglobin 32.1 pg (27.0-31.2); Mean Corpuscular Volume 93.7 fl (81-99); Mean Platelet Volume 7.9 fl (7.4-10.4); Monocytes # 0.5 K/mm3 (0.1-1.0); Monocytes % 3.8 % (1.7-9.3); Neutrophils # 8.3 K/mm3 (1.8-7.8); Neutrophils % 70.6 % (37.0-80.0); Platelet Count 247 K/mm3 (142-424); Red Blood Count 4.49 M/mm3 (4.20-5.40); Red Cell Distribution Width 14.5 % (11.5-17.5); White Blood Count 11.8 K/mm3 (4.8-10.8)
[2023-06-04 12:31] LABS: Chloride 100 mmol/L (98-107); Sodium 136 mmol/L (136-145)
[2023-06-04 12:33] LABS: Alanine Aminotransferase 32 U/L (12-78); Alkaline Phosphatase 88 U/L (38-126); Aspartate Amino Transferase 35 U/L (14-36); Bilirubin,Total 0.6 mg/dl (0.2-1.3); Blood Urea Nitrogen 12 mg/dl (7-17); Creatinine Clearance Estimated 148 mL/min (50-200); Estimated Glomerular Filt Rate 74 ml/min (>60); GFR (African American) 90 ML/MIN (>60)
[2023-06-04 12:34] LABS: Albumin/Globulin Ratio 1.1 (1.1-1.8); Calcium 9.4 mg/dl (8.4-10.2); Carbon Dioxide 27 mmol/L (22.0-30.0); Globulin 3.6 g/dL (1.3-3.2); Glucose 334 mg/dl (74-100); Lipase 58 U/L (23-300); Total Protein,Serum 7.6 g/dl (6.3-8.2)
[2023-06-04 12:44] LABS: NT Pro Brain Natriuretic Pep. 583 pg/mL (0-125)
--- NOTE | 2023-06-04 12:50 | PC.NURSE ---
Patient to RAD
[2023-06-04 12:53] VITALS: BP 136/89
[2023-06-04 12:53] LABS: Troponin I < 0.01 ng/ml (0.00-0.034)
[2023-06-04 13:00] LABS: Strep Scrn Group A (Rapid) Negative (Negative)
[2023-06-04 13:05] LABS: Thyroid Stimulating Hormone 2.79 uIU/mL (0.465-4.68)
--- NOTE | 2023-06-04 13:20 | PC.NURSE ---
Patient back from [facility]
[2023-06-04 13:48] VITALS: BP 141/61; PULSE 69; RESP 16; TEMP 36.7; O2SAT 96
[2023-06-04 14:10] LABS: Lactic Acid 2.5 mmol/L (0.7-2.1)
[2023-06-04 15:20] VITALS: BP 162/77; PULSE 74; RESP 18; TEMP 36.7; O2SAT 98
[2023-06-04 15:27] LABS: Microscopic, Urine URINE MICROSCOPIC (MICROSCOPIC)
[2023-06-04 15:28] LABS: Appearance,Urine CLEAR (Clear); Bilirubin,Urine Negative (Negative); Blood, Urine Negative (Negative); Color,Urine YELLOW (Yellow); Glucose,Urine (UA) 1+ (Negative); Ketones,Urine Negative (Negative); Leukocyte Esterase,Urine Negative (Negative); Nitrate,Urine Negative (Negative); PH,Urine 6.5 (5.0-8.5); Protein,Urine Negative (Negative); Specific Gravity, Urine <= 1.005 (1.005-1.030)
[2023-06-04 15:43] LABS: Bacteria,Urine Trace /lpf; WBC,Urine Occasional #/hpf (0-3)
[2023-06-04 15:45] LABS: Troponin I < 0.01 ng/ml (0.00-0.034)
[2023-06-04 15:57] VITALS: BP 147/88; PULSE 74; RESP 18; TEMP 36.7; O2SAT 98
[2023-06-04 17:43] LABS: Reflex Lactic Add Lactic Reflex
== END 2023-06-04 16:00 | disposition home or self-care (01) ==
PROVIDERS: Emergency Medicine; Emergency Provider Emergency Medicine; PCP Physician Assistant
DX: J44.1 Chronic obstructive pulmonary disease with (acute) exacerbation (principal); R19.7 Diarrhea, unspecified; R11.2 Nausea with vomiting, unspecified; R07.0 Pain in throat; E11.65 Type 2 diabetes mellitus with hyperglycemia; I11.9 Hypertensive heart disease without heart failure; I25.10 Atherosclerotic heart disease of native coronary artery without angina pectoris; E78.5 Hyperlipidemia, unspecified; Z79.4 Long term (current) use of insulin; K21.9 Gastro-esophageal reflux disease without esophagitis; F17.210 Nicotine dependence, cigarettes, uncomplicated
CPT/HCPCS: 36415; 71045; 74177; 80053; 81001; 83605; 83690; 83880; 84436; 84443; 84484; 85025; 87040; 87430; 96374; 96375; 99285; J0131; J2405; Q9967

== ENCOUNTER → 2023-06-18 12:02 | Outpatient (CLI) | payer MEDICAID, SELFPAY ==
[2023-06-18 12:05] LABS: Alanine Aminotransferase 21 U/L (12-78); Albumin Level 3.6 g/dl (3.5-5.0); Albumin/Globulin Ratio 1.3 (1.1-1.8); Alkaline Phosphatase 82 U/L (38-126); Anion Gap 12.4 mEq/L (5-15); Aspartate Amino Transferase 24 U/L (14-36); Bilirubin,Total 0.5 mg/dl (0.2-1.3); Blood Urea Nitrogen 15 mg/dl (7-17); Calcium 8.6 mg/dl (8.4-10.2); Carbon Dioxide 28 mmol/L (22.0-30.0); Chloride 95 mmol/L (98-107); Chol/HDL Ratio 3.3 (1-3.5); Cholesterol 113 mg/dl (140-200); Estimated Glomerular Filt Rate 31 ml/min (>60); GFR (African American) 38 ML/MIN (>60); Globulin 2.7 g/dL (1.3-3.2); Glucose 354 mg/dl (74-100); HDL Cholesterol 34 mg/dl (40-60); Potassium 4.4 mmoL/L (3.5-5.1); Sodium 131 mmol/L (136-145); Total Protein,Serum 6.3 g/dl (6.3-8.2); Triglycerides 181 mg/dl (30-150); VLDL Cholesterol 36 mg/dL (0-40)
[2023-06-18 12:07] LABS: Basophils # 0.1 K/mm3 (0-0.2); Basophils % 0.5 % (0.1-2.0); Eosinophils # 0.1 K/mm3 (0.0-0.4); Eosinophils % 0.9 % (0.1-12.0); Hematocrit 41.5 % (37.0-47.0); Hemoglobin 13.5 g/dL (12.2-16.2); Lymphocytes # 4.4 K/mm3 (0.7-4.5); Lymphocytes % 29.4 % (10-50); Mean Corpuscular HGB Conc 32.6 g/dL (31.8-35.4); Mean Corpuscular Hemoglobin 31.9 pg (27.0-31.2); Mean Corpuscular Volume 97.9 fl (81-99); Mean Platelet Volume 8.9 fl (7.4-10.4); Monocytes # 0.5 K/mm3 (0.1-1.0); Monocytes % 3.6 % (1.7-9.3); Neutrophils # 9.8 K/mm3 (1.8-7.8); Neutrophils % 65.6 % (37.0-80.0); Platelet Count 219 K/mm3 (142-424); Red Blood Count 4.23 M/mm3 (4.20-5.40); Red Cell Distribution Width 14.7 % (11.5-17.5); White Blood Count 14.9 K/mm3 (4.8-10.8)
[2023-06-18 12:14] LABS: NT Pro Brain Natriuretic Pep. 378 pg/mL (0-125)
[2023-06-18 12:17] LABS: Direct LDL Cholesterol 64.69 mg/dL (100-129)
[2023-06-18 12:35] LABS: Thyroid Stimulating Hormone 2.04 uIU/mL (0.465-4.68)
[2023-06-18 13:51] LABS: Hemoglobin A1C 8.8 % (4.0-6.0)
== END ==
PROVIDERS: PCP Physician Assistant; Visit Provider Physician Assistant
DX: I25.10 Atherosclerotic heart disease of native coronary artery without angina pectoris (principal); I10 Essential (primary) hypertension; J44.1 Chronic obstructive pulmonary disease with (acute) exacerbation; R06.01 Orthopnea; F31.9 Bipolar disorder, unspecified; R79.89 Other specified abnormal findings of blood chemistry; E66.9 Obesity, unspecified; Z68.41 Body mass index [BMI] 40.0-44.9, adult
CPT/HCPCS: 80053; 80061; 82306; 83036; 83880; 84443; 85025

== ENCOUNTER → 2023-07-10 14:15 | Outpatient (CLI) | payer MEDICAID, SELFPAY ==
--- NOTE | 2023-07-10 14:15 | CA_ITS ---
APPROVED REPORT EXAM: Comprehensive 2D, Doppler, and color-flow Echocardiogram Residential Worker: Bee Tomas RVT Ht: 5 ft 7 in Wt: 271lbs BSA: 2.30 BP: 142/74 mmHg Indications: SOA,CAD,COPD,SMOKER,HTN,HLD,OBESITY,DM TDS-PT BODY HABITUS/OVERLAYING LUNG 2D Dimensions LA Volume 32.70 mL LA Volume Index 14.22 mL/m2 (M/F) 16-34 M-Mode Dimensions RVDd 2.64 cm (0.9-2.6) LA Diam 3.22 cm (1.9-4.0) LVDd 4.29 cm (3.5-5.7) LVDs 2.68 cm (3.5-5.7) IVSd 0.98 cm (0.6-1.1) PWd 0.77 cm (0.6-1.1) EF (Teich) 67.90% FS 37.50% EDV (Teich) 82.60 mL TAPSE 1.92 (<1.7) ESV (Teich) 26.50 mL LV Diastology E Decel Time 360 (160-240 msec) E/A Ratio 0.7 MED A' 14.50 cm/s LAT A' 10.90 cm/s Aortic Valve MERCEDEZ Index 1.67 cm2/m2 AoV Peak Yusef. 113.0 (50-130 cm/s) AO Peak GR. 5.10 mmHg AO Mean GR. 2.40 (<5 mmHg) AO VTI 19.4 (18-25 cm) MERCEDEZ (VTI) 3.94 (2.5-4.5 cm2) Mitral Valve MV E Max Yusef. 74.0 (40-130 cm/s) MV A Velocity 103.0 (40-130 cm/s) E/A Ratio 0.72 MV PHT 105.0 ms Pulmonary Valve PV Peak Velocity 101.0 (50-150 cm/s) Tricuspid Valve TR P. Velocity 113.00 cm/s RAP Estimate 10.00 mmHg RVSP 15.10 mmHg Left Ventricle The left ventricle is normal size. The left ventricular systolic function is normal. The left ventricular ejection fraction is within the normal range. There is increased LV wall thickness. There is normal LV segmental wall motion. Transmitral Doppler flow pattern suggests impaired LV relaxation. LVEF is 55%. Right Ventricle Right ventricle is mildly dilated. The right ventricular systolic function is normal. There is increased RV wall thickness. Atria The left atrium size is normal. The right atrium size is normal. There is no Doppler evidence of interatrial shunt. Aortic Valve The aortic valve opens well. There is no aortic valvular stenosis. No aortic regurgitation is present. Mitral Valve The mitral valve is normal in structure. No evidence of mitral valve stenosis. Trace mitral regurgitation. Tricuspid Valve The tricuspid valve leaflets are thin and pliable. Trace tricuspid regurgitation. There is insufficient TR jet to estimate RVSP. Pulmonic Valve The pulmonary valve is normal in structure. Trace pulmonic regurgitation. Great Vessels The aortic root is normal in size. The ascending aorta is normal in size. IVC is normal in size and collapses >50% with inspiration. Pericardium There is no pericardial effusion. Other Information Study Quality: Technically Difficult Conclusion Technically difficult study due to poor acoustic windows. Normal biventricular systolic function. Mild RV dilation. No significant valvular stenosis or regurgitation. Electronically signed by : Sara Santiago MD 07/14/2023 21:16:10
== END ==
LOC: RT 14:15
PROVIDERS: PCP Physician Assistant; Visit Provider Physician Assistant
DX: R06.01 Orthopnea (principal); I25.10 Atherosclerotic heart disease of native coronary artery without angina pectoris; J44.9 Chronic obstructive pulmonary disease, unspecified
CPT/HCPCS: 93306

== ENCOUNTER 2024-03-28 15:05 | Outpatient (CLI) | payer MEDICAID, SELFPAY ==
[2024-03-28 14:43] LABS: Basophils # 0.1 K/mm3 (0-0.2); Basophils % 0.9 % (0.1-2.0); Eosinophils # 0.2 K/mm3 (0.0-0.4); Eosinophils % 2.4 % (0.1-12.0); Hematocrit 37.6 % (37.0-47.0); Hemoglobin 12.1 g/dL (12.2-16.2); Lymphocytes # 2.2 K/mm3 (0.7-4.5); Lymphocytes % 23.9 % (10-50); Mean Corpuscular HGB Conc 32.1 g/dL (31.8-35.4); Mean Corpuscular Hemoglobin 30.1 pg (27.0-31.2); Mean Corpuscular Volume 93.7 fl (81-99); Mean Platelet Volume 9.3 fl (7.4-10.4); Monocytes # 0.4 K/mm3 (0.1-1.0); Monocytes % 3.7 % (1.7-9.3); Neutrophils # 6.5 K/mm3 (1.8-7.8); Neutrophils % 69.1 % (37.0-80.0); Platelet Count 180 K/mm3 (142-424); Red Blood Count 4.02 M/mm3 (4.20-5.40); Red Cell Distribution Width 14.6 % (11.5-17.5); White Blood Count 9.4 K/mm3 (4.8-10.8)
[2024-03-28 15:07] LABS: Alanine Aminotransferase 26 U/L (12-78); Albumin/Globulin Ratio 1.1 (1.1-1.8); Alkaline Phosphatase 79 U/L (38-126); Anion Gap 8.7 mEq/L (5-15); Aspartate Amino Transferase 30 U/L (14-36); Bilirubin,Total 0.8 mg/dl (0.2-1.3); Blood Urea Nitrogen 5 mg/dl (7-17); Calcium 8.7 mg/dl (8.4-10.2); Carbon Dioxide 26 mmol/L (22.0-30.0); Chloride 106 mmol/L (98-107); Cholesterol 166 mg/dl (140-200); Estimated Glomerular Filt Rate 103 ml/min (>60); GFR (African American) 125 ML/MIN (>60); Globulin 2.8 g/dL (1.3-3.2); Glucose 185 mg/dl (74-100); HDL Cholesterol 42 mg/dl (40-60); Potassium 3.7 mmoL/L (3.5-5.1); Sodium 137 mmol/L (136-145); Total Protein,Serum 5.8 g/dl (6.3-8.2); Triglycerides 112 mg/dl (30-150); VLDL Cholesterol 22 mg/dL (0-40)
[2024-03-28 15:18] LABS: Direct LDL Cholesterol 104.16 mg/dL (100-129)
[2024-03-28 15:25] LABS: 25-OH Vitamin D, Total 45.1 ng/mL (30-100)
[2024-03-28 15:38] LABS: Thyroid Stimulating Hormone 2.18 uIU/mL (0.465-4.68)
[2024-03-28 17:52] LABS: Hemoglobin A1C 12.9 % (4.0-6.0)
== END 2024-03-28 23:59 | disposition home or self-care (01) ==
LOC: LAB.DROPOF 15:06
PROVIDERS: PCP Physician Assistant; Visit Provider Physician Assistant
DX: E78.5 Hyperlipidemia, unspecified (principal); I10 Essential (primary) hypertension; F17.210 Nicotine dependence, cigarettes, uncomplicated; E11.42 Type 2 diabetes mellitus with diabetic polyneuropathy; Z79.85 Long-term (current) use of injectable non-insulin antidiabetic drugs; Z79.4 Long term (current) use of insulin; Z68.41 Body mass index [BMI] 40.0-44.9, adult; E66.9 Obesity, unspecified
CPT/HCPCS: 80050; 80053; 80061; 82306; 83036; 84443; 85025

== ENCOUNTER 2024-10-01 03:27 | Observation (INO) | payer MEDICAID, SELFPAY ==
[2024-10-01] VITALS (18 sets, daily range): BP systolic 96–139; BP diastolic 36–92; PULSE 77–90; RESP 14–27; TEMP 36.6–37.6; O2SAT 92–100; BMI 42.3; BMI 40.1
--- NOTE | 2024-10-01 03:36 | HMH.EDGENADL ---
Discharge Plan Disposition Patient Disposition: Admitted Chief Complaint: Dizziness Clinical Impressions Clinical Impression: DKA (diabetic ketoacidosis), Acute hyponatremia, KATHY (acute kidney injury) Discharge ED Provider: Bonilla Lamb Adult HPI General Chief complaint: Dizziness Stated complaint: lightheaded, disoriented, fallen 3 times Time Seen by Provider: 10/01/24 03:36 History of Present Illness HPI narrative: 59-year-old female with history of type 2 diabetes on insulin, hypertension, hyperlipidemia, presents for multiple complaints. She reports that she has been dizzy/fuzzy for the last week or so but it got worse yesterday. She has had 3 falls including one a few hours ago. She denies any significant trauma or pain as a result of the falls. She reports some shortness of breath that worsened yesterday afternoon. She denies any significant headache, nausea vomiting diarrhea, vision changes, numbness, weakness. Reports that she just feels fuzzy . Denies fever at home. Dizziness is present at all times, but does get worse when she stands up. Related Data Previous Rx's ?Medication ?Instructions ?Recorded escitalopram oxalate 20 mg tablet 20 mg PO DAILY Anxiety #90 tabs 08/19/23 insulin syringe-needle U-100 1 mL #100 ea 09/17/23 31 gauge x 5/16 (BD Insulin Syringe Ultra-Fine) albuterol sulfate 2.5 mg/3 mL See Rx Instructions .Route 08/16/24 (0.083 %) solution for nebulization .COMPLEX #150 mL aspirin 81 mg tablet,delayed See Rx Instructions .Route 08/16/24 release .COMPLEX #90 tabs atorvastatin 80 mg tablet See Rx Instructions .Route 08/16/24 .COMPLEX #90 tabs bupropion HCl 150 mg 24 hr tablet, 150 mg PO DAILY Anxiety #90 tabs 08/16/24 extended release cariprazine 4.5 mg capsule 4.5 mg PO DAILY Anxiety #90 caps 08/16/24 (Vraylar) clopidogrel 75 mg tablet 75 mg PO DAILY Blood thinner #90 08/16/24 tabs desvenlafaxine succinate 50 mg See Rx Instructions .Route 08/16/24 tablet,extended release 24 hr .COMPLEX #30 tabs empagliflozin 25 mg tablet 25 mg PO DAILY #30 tabs 08/16/24 (Jardiance) famotidine 40 mg tablet See Rx Instructions .Route 08/16/24 .COMPLEX #90 tabs finerenone 10 mg tablet (Kerendia) See Rx Instructions .Route 08/16/24 .COMPLEX #30 tabs insulin glargine 100 unit/mL (3 See Rx Instructions .Route 08/16/24 mL) subcutaneous pen (Lantus .COMPLEX #15 mL Solostar U-100 Insulin) losartan 100 1 tab PO DAILY #90 tabs 08/16/24 mg-hydrochlorothiazide 25 mg tablet pantoprazole 40 mg tablet,delayed See Rx Instructions .Route 08/16/24 release .COMPLEX #90 tabs pregabalin 200 mg capsule 200 mg PO BID 30 days #60 caps 08/16/24 tirzepatide 2.5 mg/0.5 mL 2.5 mg (0.5 mL) SQ WEEKLY #2.5 mL 08/16/24 subcutaneous pen injector (Mounjaro) cholecalciferol (vitamin D3) 25 See Rx Instructions .Route 08/19/24 mcg (1,000 unit) capsule .COMPLEX #90 ea ergocalciferol (vitamin D2) 1,250 See Rx Instructions .Route 09/16/24 mcg (50,000 unit) capsule .COMPLEX #14 caps insulin NPH-regular 70-30 U-100 See Rx Instructions .Route 09/16/24 insulin 100 unit/mL subcutaneous .COMPLEX #60 mL pen (Humulin 70/30 U-100 KwikPen) dulaglutide 0.75 mg/0.5 mL 0.75 mg (0.5 mL) SQ WEEKLY #2.5 mL 09/29/24 subcutaneous pen injector (Trulicity) Allergies Allergy/AdvReac Type Severity Reaction Status Date / Time latex (LATEX) Allergy Intermediate I-HIVES Verified 08/16/24 14:20 sulfamethoxazole (From Allergy Intermediate I-ITCHING Verified 08/16/24 14:20 BACTRIM) trimethoprim (From BACTRIM) Allergy Intermediate I-ITCHING Verified 08/16/24 14:20 lisinopril (LISINOPRIL) Allergy Unknown S-DIFF. Verified 08/16/24 14:20 BREATHING PFS PFS Disclaimer: The information contained in this section may have been updated after the patient was seen, as this information can be updated by other users. Medical History Agoraphobia Generalized anxiety disorder Urinary incontinence, urge Dyspnea Dizziness Neuropathy Bipolar depression Depression Bipolar disorder current episode depressed Allergic rhinitis Diabetic neuropathy associated with type 2 diabetes mellitus Coronary artery disease Hypertension Hyperlipidemia GERD (gastroesophageal reflux disease) Anxiety Diabetes mellitus Surgical History Hx of cardiac cath H/O exploratory laparotomy Family History Mother Family history of hypertension Coronary artery disease Social History Smoking Status: Current every day smoker tobacco type: cigarettes packs per day: 1 alcohol intake: former substance use type: marijuana current occupational status: disabled Travel in the last 8 weeks: None housing: house number of children: 3 caffeine: Yes do you feel safe at home: Yes victim of physical abuse: No victim of emotional abuse: No victim of sexual abuse: No would you like helpful sources: No Other Medical History Have you received the Flu Vaccine for this season: Yes Have you received the Pneumonia Vaccine: Yes ROS Obtained: Yes All systems reviewed & no additional complaints except as documented Physical Exam General General appearance: alert and in no apparent distress Head Head exam: atraumatic and normocephalic Eye Eye exam: Present normal appearance, PERRL and EOMI ENT ENT exam: Present normal oropharynx and normal external ear exam Neck Neck exam: Present normal inspection and full ROM Chest Chest inspection: Present normal inspection and symmetric chest wall rise; Absent tenderness Respiratory Respiratory exam: Present normal lung sounds bilaterally; Absent respiratory distress Cardiovascular Cardiovascular exam: Present regular rate and normal rhythm Abdominal Exam Abdominal exam: Present soft; Absent distention, tenderness or guarding Extremities Exam Extremities exam: Present normal inspection; Absent edema or joint swelling Back Exam Back exam: Present normal inspection; Absent tenderness Neurological Exam Neurological exam: Present alert, oriented X3 and CN II-XII intact; Absent motor sensory deficit Psychiatric Psychiatric exam: Present normal affect and normal mood Skin Skin exam: Present warm, dry and normal color Lymphatic Lymphatic Findings: no adenopathy Medical Decision Making Medical Records Medical records reviewed: Yes I reviewed the patient's medical records. Screening: Per USPSTF and CDC recommendations, given the prevalence of disease in our region, it is our hospital?s policy to screen for HIV and viral Hepatitis for all patients aged 18 and over and those with ongoing risk factors. Emigdio Inquiry Pt receiving controlled substance: No Emigdio was queried for this patient: No Vital Signs: 10/01/24 04:04 10/01/24 04:17 10/01/24 04:30 Temperature 98.1 F Temperature Source Oral Pulse Rate 83 79 Pulse Rate [Radial] 81 Respiratory Rate 24 18 14 Blood Pressure 99/49 L Blood Pressure [Right Arm] 106/52 L Blood Pressure Mean [Right Arm] 70 Blood Pressure Position [Right Arm] Sitting 02 Sat by Pulse Oximetry 96 97 94 L Oxygen Delivery Method Room Air 10/01/24 04:30 10/01/24 04:45 10/01/24 05:00 Temperature Temperature Source Pulse Rate 77 84 Pulse Rate [Radial] 80 Respiratory Rate 24 Blood Pressure 99/49 L Blood Pressure [Right Arm] 96/49 L Blood Pressure Mean [Right Arm] 64 Blood Pressure Position [Right Arm] 02 Sat by Pulse Oximetry 97 97 93 L Oxygen Delivery Method Room Air 10/01/24 05:00 Temperature Temperature Source Pulse Rate 79 Pulse Rate [Radial] Respiratory Rate 14 Blood Pressure 96/49 L Blood Pressure [Right Arm] Blood Pressure Mean [Right Arm] Blood Pressure Position [Right Arm] 02 Sat by Pulse Oximetry 96 Oxygen Delivery Method Lab Data Lab results reviewed: Yes I reviewed the patient's lab results. Lab Results 10/01/24 04:00: Acetone Level None detected 10/01/24 04:08: Urine Color Yellow, Urine Appearance Clear, Urine pH 5.5, Ur Specific [place] < 1.005 L, Urine Protein Negative, Urine Glucose (UA) 3+, Urine Ketones Negative, Urine Blood Negative, Urine Nitrate Negative, Urine Bilirubin Negative, Urine Urobilinogen 0.2, Ur Leukocyte Esterase Negative, Urine RBC None, Urine WBC Occasional, Ur Squamous Epith Cells 5-10, Urine Bacteria Trace, Urine Sodium 7.0 L 10/01/24 04:22: WBC 7.6, RBC 4.99, Hgb 14.8, Hct 43.6, MCV 87.4, MCH 29.7, MCHC 33.9, RDW 13.0, Plt Count 216, MPV 12.1 H, Neut % (Auto) 57.3, Lymph % (Auto) 31.8, [place] % (Auto) 8.3, Eos % (Auto) 0.7, Baso % (Auto) 1.6, Neut # (Auto) 4.4, Lymph # (Auto) 2.4, [place] # (Auto) 0.6, Eos # (Auto) 0.1, Baso # (Auto) 0.1, D-Dimer 0.53 H, Sodium 122 L, Potassium 4.4, Chloride 88 L, Carbon Dioxide 21 L, Anion Gap 17.4 H, BUN 36 H, Creatinine 2.00 H, Estimated Creat Clear 30, Estimated GFR 26 L, Est GFR ( Amer) 31 L, Glucose 713 H*, Hemoglobin A1c 12.9 H, Calcium 8.8, Phosphorus 6.0 H, Magnesium 2.6 H, Total Bilirubin 0.4, AST 79 H, ALT 43, Alkaline Phosphatase 120, Troponin I < 0.01, NT-Pro-B Natriuret Pep 89.7, Total Protein 7.4 D, Albumin 4.5, Globulin 2.9, Albumin/Globulin Ratio 1.6, TSH 1.09, Thyroxine (T4) 10.9 10/01/24 04:56: VBG pH 7.27 L, VBG pCO2 40.0, VBG pO2 37.6, VBG HCO3 18.0 L, VBG Total CO2 19.2 L, VBG O2 Saturation 71.1 H, VBG Base Excess -9.0 L, VBG Lactic Acid 2.4 H 10/01/24 04:22 10/01/24 04:22 Orders (Tests/Meds): ED MEDICATIONS Generic Name Dose Route Start Last Admin Trade Name Freq PRN Reason Stop Dose Admin Dextrose 50 ml 10/01/24 05:38 Dextrose 50% 50ml Syringe (Crash Cart) IVP 10/31/24 05:37 NEEDED PRN Per Dka Protocol for FSBS </= 50 Sodium Chloride 1,000 mls @ 150 mls/hr 10/01/24 07:00 Sod Chlor 0.9% 1000ml Bag IV 10/31/24 06:59 .Q6H40M ARETHA Insulin Human Regular 100 unit 101 mls @ 11.11 mls/hr 10/01/24 05:45 10/01/24 05:38 / Sodium Chloride IV 10/31/24 05:44 11 unit/hr .Q9H6M ARETHA 11.11 mls/hr Administration Protocol 11 UNIT/HR Discontinued Medications Generic Name Dose Route Start Last Admin Trade Name Dionisioq PRN Reason Stop Dose Admin Sodium Chloride 1,000 mls @ 999 mls/hr 10/01/24 04:30 10/01/24 04:42 Sod Chlor 0.9% 1000ml Bag IV 10/01/24 05:30 999 mls/hr .Q1H1M ARETHA Administration Meclizine HCl 25 mg 10/01/24 04:22 10/01/24 04:42 Meclizine 25mg Tablet PO 10/01/24 04:23 25 mg ONCE ONE Administration ORDERS Category Date Time Status Nutrition Consult [CONS] Routine Cons 10/01/24 05:38 Active CXR --portable [XR chest portable] Stat Exams 10/01/24 04:22 Taken Acetone, Serum (Rapid) Stat Lab 10/01/24 04:00 Completed BNP [NT Pro Brain Natriuretic Pep.] Stat Lab 10/01/24 04:22 Completed Basic Metabolic Panel Q4H Lab 10/01/24 05:45 Ordered Basic Metabolic Panel Q4H Lab 10/01/24 09:45 Ordered Basic Metabolic Panel Q4H Lab 10/01/24 13:45 Ordered Basic Metabolic Panel Q4H Lab 10/01/24 17:45 Ordered Basic Metabolic Panel Q4H Lab 10/01/24 21:45 Ordered Basic Metabolic Panel Q4H Lab 10/02/24 01:45 Ordered CBC w/Auto Diff [Complete Blood Count Auto Diff] Stat Lab 10/01/24 04:22 Completed CMP [Comprehensive Metabolic Panel] Stat Lab 10/01/24 04:22 Completed D-Dimer Stat Lab 10/01/24 04:22 Completed Hemoglobin A1C Stat Lab 10/01/24 04:22 Completed Magnesium Q4H Lab 10/01/24 05:45 Ordered Magnesium Q4H Lab 10/01/24 09:45 Ordered Magnesium Q4H Lab 10/01/24 13:45 Ordered Magnesium Q4H Lab 10/01/24 17:45 Ordered Magnesium Q4H Lab 10/01/24 21:45 Ordered Magnesium Q4H Lab 10/02/24 01:45 Ordered Magnesium Stat Lab 10/01/24 04:22 Completed Phosphorous Q4H Lab 10/01/24 05:45 Ordered Phosphorous Q4H Lab 10/01/24 09:45 Ordered Phosphorous Q4H Lab 10/01/24 13:45 Ordered Phosphorous Q4H Lab 10/01/24 17:45 Ordered Phosphorous Q4H Lab 10/01/24 21:45 Ordered Phosphorous Q4H Lab 10/02/24 01:45 Ordered Phosphorous Stat Lab 10/01/24 04:22 Completed Sodium,Urine Random Stat Lab 10/01/24 04:08 Completed T4 (Thyroxine) Stat Lab 10/01/24 04:22 Completed TSH [Thyroid Stimulating Hormone] Stat Lab 10/01/24 04:22 Completed Troponin I Q3H Lab 10/01/24 04:22 Completed Troponin I Q3H Lab 10/01/24 07:30 Ordered UA [Urinalysis and Microscopic] Stat Lab 10/01/24 04:08 Completed Blood Culture Stat Micro 10/01/24 05:50 Received Urine Culture Stat Micro 10/01/24 05:12 Ordered VBG [Venous Blood Gas] Stat RT 10/01/24 04:56 Completed ECG Data Tracing #1: I reviewed this ECG and interpreted as documented below: ECG initial impression date: 10/01/24 ECG initial impression time: 04:07 ECG normal with no acute: arrhythmias, ischemia, conduction abnormalities, chamber hypertrophy Medical Decision Narrative: 59-year-old female with history of obesity, type 2 diabetes on insulin, hypertension hyperlipidemia presents for 1 week of worsening dizziness. History was obtained via interactive discussion with patient. On arrival, patient is [afebrile, hemodynamically stable, satting appropriately, alert, oriented x4, GCS 15], moving all extremities spontaneously. Full physical exam performed and significant for no focal neurologic deficits. Orthostatics positive. Differential includes but is not limited to dehydration, electrolyte derangement, orthostasis, stroke, DKA, HHS, inner ear pathology. Patient was given 1 L IV fluid bolus, meclizine for symptomatic management and correction of underlying abnormalities. Workup initiated including CBC CMP VBG blood cultures acetone UA chest x-ray CT head CTA head. On re-evaluation, patient [remains afebrile, HD stable.] Laboratory workup independently interpreted by me and significant for findings consistent with DKA. Patient mildly acidotic, blood sugar over 700, mild gap. Patient also has significant hyponatremia at 122 and elevated creatinine at 2.0. Imaging independently interpreted by me and significant for chest x-ray with with poor penetration, no obvious effusion or pneumothorax. See radiology read for full review of final results. CT head CTA head and neck was considered, but deemed unnecessary due to presence of other explanatory factors. Given patient history, exam and workup, patient's presentation most likely represents DKA, KATHY, hyponatremia. Given patient has been symptomatic for a week, I am concerned about over rapid correction of her hyponatremia. Will only do 1 L bolus instead of large volume. Patient was initiated on insulin drip. Interactive discussion was had with the hospitalist on-call for admission. Procedures Risk/Benefits of Procedure(s) Were Explained: Yes Critical Care Critical Care Time Critical Care Time: Yes Attestation: On 10/01/24, the high probability of a clinically significant, sudden or life threatening deterioration of the following system(s) required my full and direct attention, intervention and personal management. The time I documented below is in addition to time spent performing reported procedures but includes the following listed in this critical care notation. Total Time Total Critical Care Time: 65
--- NOTE | 2024-10-01 04:07 | ECG_ITS ---
APPROVED REPORT Exam: Resting ECG HR:79 bpm ECG Measurements Heart Rate 79 AXES MN 155 P 70 QRSd 87 QRS 43 QT 376 T 59 QTc 411 Conclusion SINUS RHYTHM NORMAL ECG UNCONFIRMED REPORT Electronically signed by : ADITYA DICKEY, 10/04/2024 07:02:15
--- NOTE | 2024-10-01 04:22 | XR_ITS ---
PROCEDURE INFORMATION: Exam: XR Chest Exam date and time: 10/01/2024 5:19 AM Age: 59 years old Clinical indication: Chest wall pain; Additional info: SOA TECHNIQUE: Imaging protocol: Radiologic exam of the chest. Views: 1 view. COMPARISON: CR XR CHEST PORTABLE 06/04/2023 12:55 PM FINDINGS: Lungs: Unremarkable. No consolidation. Pleural spaces: Unremarkable. No pleural effusion. No pneumothorax. Heart/Mediastinum: Unremarkable. No cardiomegaly. Bones/joints: Unremarkable. IMPRESSION: No acute findings.
[2024-10-01 04:26] LABS: Microscopic, Urine URINE MICROSCOPIC (MICROSCOPIC)
[2024-10-01 04:28] LABS: Basophils # 0.1 K/mm3 (0-0.2); Basophils % 1.6 % (0.1-2.0); Eosinophils # 0.1 K/mm3 (0.0-0.4); Eosinophils % 0.7 % (0.1-12.0); Hematocrit 43.6 % (37.0-47.0); Hemoglobin 14.8 g/dL (12.2-16.2); Lymphocytes # 2.4 K/mm3 (0.7-4.5); Lymphocytes % 31.8 % (10-50); Mean Corpuscular HGB Conc 33.9 g/dL (31.8-35.4); Mean Corpuscular Hemoglobin 29.7 pg (27.0-31.2); Mean Corpuscular Volume 87.4 fl (81-99); Mean Platelet Volume 12.1 fl (7.4-10.4); Monocytes # 0.6 K/mm3 (0.1-1.0); Monocytes % 8.3 % (1.7-9.3); Neutrophils # 4.4 K/mm3 (1.8-7.8); Neutrophils % 57.3 % (37.0-80.0); Platelet Count 216 K/mm3 (142-424); Red Blood Count 4.99 M/mm3 (4.20-5.40); White Blood Count 7.6 K/mm3 (4.8-10.8)
[2024-10-01 04:36] LABS: Albumin Level 4.5 g/dl (3.5-5.0); Chloride 88 mmol/L (98-107); Potassium 4.4 mmoL/L (3.5-5.1); Sodium 122 mmol/L (136-145)
[2024-10-01 04:38] LABS: Blood Urea Nitrogen 36 mg/dl (7-17); Creatinine Clearance Estimated 30 mL/min (50-200); Estimated Glomerular Filt Rate 26 ml/min (>60); GFR (African American) 31 ML/MIN (>60)
[2024-10-01 04:38] LABS: Appearance,Urine Clear (Clear); Bilirubin,Urine Negative (Negative); Blood, Urine Negative (Negative); Color,Urine Yellow (Yellow); Glucose,Urine (UA) 3+ (Negative); Ketones,Urine Negative (Negative); Leukocyte Esterase,Urine Negative (Negative); Nitrate,Urine Negative (Negative); PH,Urine 5.5 (5.0-8.5); Protein,Urine Negative (Negative); Specific Gravity, Urine < 1.005 (1.005-1.030); Urobilinogen,Urine 0.2 EU/dl (0.2)
[2024-10-01 04:39] LABS: Alanine Aminotransferase 43 U/L (12-78); Albumin/Globulin Ratio 1.6 (1.1-1.8); Alkaline Phosphatase 120 U/L (38-126); Anion Gap 17.4 mEq/L (5-15); Aspartate Amino Transferase 79 U/L (14-36); Bilirubin,Total 0.4 mg/dl (0.2-1.3); Calcium 8.8 mg/dl (8.4-10.2); Carbon Dioxide 21 mmol/L (22.0-30.0); Globulin 2.9 g/dL (1.3-3.2); Total Protein,Serum 7.4 g/dl (6.3-8.2)
[2024-10-01 04:40] LABS: Magnesium 2.6 mg/dl (1.6-2.3)
[2024-10-01] MEDS: MECLIZINE 25MG TABLET 25 MG PO (04:42)
[2024-10-01] MEDS: 0.9 % SODIUM CHLORIDE 1000ML 1,000 ML 999 ML IV (04:42)
[2024-10-01 04:44] LABS: D-Dimer 0.53 ug/mL (0.0-0.5)
[2024-10-01 04:48] LABS: Glucose 713 mg/dl (74-100)
[2024-10-01 04:56] LABS: T4 (Thyroxine) 10.9 ug/dl (5.53-11.0)
[2024-10-01 04:56] LABS: Acetone, Serum (Rapid) None Detected (None Detect)
[2024-10-01 04:58] LABS: NT Pro Brain Natriuretic Pep. 89.7 pg/mL (0-125)
[2024-10-01 04:58] LABS: Lactate Venous 2.4 mmol/L (0.4-2.0); VBG Oxygen Saturation 71.1 % (50-70); VBG PH 7.27 mmol/L (7.31-7.41); VBG PO2 37.6 mmol/L (28-40); VBG Total CO2 19.2 mmol/L (23-27)
[2024-10-01 05:00] LABS: Bacteria,Urine Trace /lpf; WBC,Urine Occasional #/hpf (0-3)
[2024-10-01 05:03] LABS: Troponin I < 0.01 ng/ml (0.00-0.034)
[2024-10-01 05:10] LABS: Thyroid Stimulating Hormone 1.09 uIU/mL (0.465-4.68)
[2024-10-01 05:19] LABS: Hemoglobin A1C 12.9 % (4.0-6.0)
[2024-10-01] MEDS: INSULIN REGULAR, HUMAN 100 UNIT in 0.9 % SODIUM CHLORIDE 100 ML 11.11 UNIT IV (05:38)
--- NOTE | 2024-10-01 05:44 | PC.NURSE ---
Patient to be admitted to 263 ICU with DKA. Patient to be held in ER until change of shift related to staffing.
--- NOTE | 2024-10-01 06:03 | P.HP_ITS ---
<Statement entered by Ezequiel Brewster MD - 10/03/24 19:50> Personally evaluated patient and agree with plan of care as outlined by the VISUAL MERCHANDISE MANAGER. History of Present Illness *Admission Date: 10/01/24 *Reason for visit:: Diabetic ketoacidosis, dizziness *History of present illness: This morbidly obese female who has had diabetes for quite some time. Gives a history of having hemoglobin A1c as 12 and normal blood sugar around 250.. Patient is seeing Dr. De La Cruz about 3 weeks ago has had some of her psychiatric medications stopped. And was supposed to start on Mounjaro but was unable to get that due to insurance and has just received Trulicity but has not taken her first dose. Over the past 2 weeks she has been feeling more and more dizzy. So she has come in tonight with her ., And initial exam shows that she is probably mild to moderately dehydrated. Blood sugars were greater than 700 hemoglobin A1c greater than 12. Slightly decreased pH on lab work. Patient denies any other problems as far as fever being ill missing medications. So unknown cause for the sudden increase in her blood sugars. Plan at this time we will admit her to the stepdown unit. Continue insulin drip and DKA protocol Rest of exam basically negative reviewing her old records Long history of bipolar, anxiety agoraphobia, and in several notes moves very slowly but has a normal TSH and T4. On exam patient asked similar to a person with significant hypothyroidism. [facility] Disclaimer: The information contained in this section may have been updated after the alvin gordon was seen, as this information can be updated by other users. Medical History Agoraphobia Generalized anxiety disorder Urinary incontinence, urge Dyspnea Dizziness Neuropathy Bipolar depression Depression Bipolar disorder current episode depressed Allergic rhinitis Diabetic neuropathy associated with type 2 diabetes mellitus Coronary artery disease Hypertension Hyperlipidemia GERD (gastroesophageal reflux disease) Anxiety Diabetes mellitus Surgical History Hx of cardiac cath H/O exploratory laparotomy Family History Mother Family history of hypertension Coronary artery disease Social History Smoking Status: Current every day smoker tobacco type: cigarettes packs per day: 1 alcohol intake: former substance use type: marijuana current occupational status: disabled Travel in the last 8 weeks: None housing: house number of children: 3 caffeine: Yes do you feel safe at home: Yes victim of physical abuse: No victim of emotional abuse: No victim of sexual abuse: No would you like helpful sources: No Other Medical History Have you received the Flu Vaccine for this season: Yes Have you received the Pneumonia Vaccine: Yes Review of Systems Review of Systems Review of systems:: pertinent systems reviewed and negative unless documented below Review of systems (narrative): Patient is stable at this time she is sort of blunted in her behavior kind of moves and talks slowly Constitutional Constitutional: Reports as per HPI Eyes Eyes: Reports as per HPI Comments: Patient denies any significant changes in vision ENT Ears, Nose, Mouth, and Throat: Reports as per HPI Comments: Denies any changes in hearing or throat pain *Cardiovascular Cardiovascular: Reports as per HPI Comments: Denies any chest pain *Respiratory Respiratory: Reports as per HPI *Gastrointestinal Gastrointestinal: Reports as per HPI *Genitourinary Genitourinary: Reports as per HPI *Musculoskeletal Musculoskeletal: Reports as per HPI Integumentary/Breasts Skin/Breast: Reports as per HPI Comments: Patient noted that she has several different skin conditions such as a send keratosis *Neurologic Neurologic: Reports as per HPI Comments: Patient states that she is able to feel both of her feet Psychiatric Psychiatric: Reports as per HPI Endocrine Endocrine: Reports as per HPI Hematologic/Lymphatic Hematologic/Lymphatic: Reports as per HPI Allergic/Immunologic Allergic/Immunologic: Reports as per HPI Meds Home Medications and Allergies Home Medications ?Medication ?Instructions ?Recorded ?Confirmed ?Type escitalopram oxalate 20 mg tablet 20 mg PO DAILY Anxiety #90 tabs 08/19/23 08/16/24 Rx insulin syringe-needle U-100 1 mL #100 ea 09/17/23 08/16/24 Rx 31 gauge x 5/16 (BD Insulin Syringe Ultra-Fine) albuterol sulfate 2.5 mg/3 mL See Rx Instructions .Route 08/16/24 08/16/24 Rx (0.083 %) solution for nebulization .COMPLEX #150 mL aspirin 81 mg tablet,delayed See Rx Instructions .Route 08/16/24 08/16/24 Rx release .COMPLEX #90 tabs atorvastatin 80 mg tablet See Rx Instructions .Route 08/16/24 08/16/24 Rx .COMPLEX #90 tabs bupropion HCl 150 mg 24 hr tablet, 150 mg PO DAILY Anxiety #90 tabs 08/16/24 08/16/24 Rx extended release cariprazine 4.5 mg capsule 4.5 mg PO DAILY Anxiety #90 caps 08/16/24 08/16/24 Rx (Vraylar) clopidogrel 75 mg tablet 75 mg PO DAILY Blood thinner #90 08/16/24 08/16/24 Rx tabs desvenlafaxine succinate 50 mg See Rx Instructions .Route 08/16/24 08/16/24 Rx tablet,extended release 24 hr .COMPLEX #30 tabs empagliflozin 25 mg tablet 25 mg PO DAILY #30 tabs 08/16/24 08/16/24 Rx (Jardiance) famotidine 40 mg tablet See Rx Instructions .Route 08/16/24 08/16/24 Rx .COMPLEX #90 tabs finerenone 10 mg tablet (Kerendia) See Rx Instructions .Route 08/16/24 08/16/24 Rx .COMPLEX #30 tabs insulin glargine 100 unit/mL (3 See Rx Instructions .Route 08/16/24 08/16/24 Rx mL) subcutaneous pen (Lantus .COMPLEX #15 mL Solostar U-100 Insulin) losartan 100 1 tab PO DAILY #90 tabs 08/16/24 08/16/24 Rx mg-hydrochlorothiazide 25 mg tablet pantoprazole 40 mg tablet,delayed See Rx Instructions .Route 08/16/24 08/16/24 Rx release .COMPLEX #90 tabs pregabalin 200 mg capsule 200 mg PO BID 30 days #60 caps 08/16/24 08/16/24 Rx tirzepatide 2.5 mg/0.5 mL 2.5 mg (0.5 mL) SQ WEEKLY #2.5 mL 08/16/24 08/16/24 Rx subcutaneous pen injector (Efraro) cholecalciferol (vitamin D3) 25 See Rx Instructions .Route 08/19/24 Rx mcg (1,000 unit) capsule .COMPLEX #90 ea ergocalciferol (vitamin D2) 1,250 See Rx Instructions .Route 09/16/24 Rx mcg (50,000 unit) capsule .COMPLEX #14 caps insulin NPH-regular 70-30 U-100 See Rx Instructions .Route 09/16/24 Rx insulin 100 unit/mL subcutaneous .COMPLEX #60 mL pen (Humulin 70/30 U-100 KwikPen) dulaglutide 0.75 mg/0.5 mL 0.75 mg (0.5 mL) SQ WEEKLY #2.5 mL 09/29/24 Rx subcutaneous pen injector (Trulicity) New Prescriptions to Start Prescriptions: Allergies Allergy/AdvReac Type Severity Reaction Status Date / Time latex (LATEX) Allergy Intermediate I-HIVES Verified 08/16/24 14:20 sulfamethoxazole (From Allergy Intermediate I-ITCHING Verified 08/16/24 14:20 BACTRIM) trimethoprim (From BACTRIM) Allergy Intermediate I-ITCHING Verified 08/16/24 14: 20 lisinopril (LISINOPRIL) Allergy Unknown S-DIFF. Verified 08/16/24 14:20 BREATHING Exam Data for Last 24 hours Vital signs and Labs for Last 24 Hours: Temp Pulse Resp BP Pulse Ox O2 Del Method 98.1 F 80 14 96/49 L 93 L Room Air 10/01/24 04:04 10/01/24 05:00 10/01/24 05:00 10/01/24 05:00 10/01/24 05:00 10/01/24 05:00 Laboratory Results - last 24 hr 10/01/24 04:00: Acetone Level None detected 10/01/24 04:08: Urine Color Yellow, Urine Appearance Clear, Urine pH 5.5, Ur Specific [place] < 1.005 L, Urine Protein Negative, Urine Glucose (UA) 3+, Urine Ketones Negative, Urine Blood Negative, Urine Nitrate Negative, Urine Bilirubin Negative, Urine Urobilinogen 0.2, Ur Leukocyte Esterase Negative, Urine RBC None, Urine WBC Occasional, Ur Squamous Epith Cells 5-10, Urine Bacteria Trace, Urine Sodium 7.0 L 10/01/24 04:22: WBC 7.6, RBC 4.99, Hgb 14.8, Hct 43.6, MCV 87.4, MCH 29.7, MCHC 33.9, RDW 13.0, Plt Count 216, MPV 12.1 H, Neut % (Auto) 57.3, Lymph % (Auto) 31.8, [place] % (Auto) 8.3, Eos % (Auto) 0.7, Baso % (Auto) 1.6, Neut # (Auto) 4.4, Lymph # (Auto) 2.4, [place] # (Auto) 0.6, Eos # (Auto) 0.1, Baso # (Auto) 0.1, D- Dimer 0.53 H, Sodium 122 L, Potassium 4.4, Chloride 88 L, Carbon Dioxide 21 L, Anion Gap 17.4 H, BUN 36 H, Creatinine 2.00 H, Estimated Creat Clear 30, Estimated GFR 26 L, Est GFR ( Amer) 31 L, Glucose 713 H*, Hemoglobin A1c 12.9 H, Calcium 8.8, Phosphorus 6.0 H, Magnesium 2.6 H, Total Bilirubin 0.4, AST 79 H, ALT 43, Alkaline Phosphatase 120, Troponin I < 0.01, NT-Pro-B Natriuret Pep 89.7, Total Protein 7.4 D, Albumin 4.5, Globulin 2.9, Albumin/Globulin Ratio 1.6, TSH 1.09, Thyroxine (T4) 10.9 10/01/24 04:56: VBG pH 7.27 L, VBG pCO2 40.0, VBG pO2 37.6, VBG HCO3 18.0 L, VBG Total CO2 19.2 L, VBG O2 Saturation 71.1 H, VBG Base Excess -9.0 L, VBG Lactic Acid 2.4 H I & O for Last 24 hours: Intake & Output 09/29/24 09/30/24 10/01/24 10/02/24 05:59 05:59 05:59 05:59 Weight 255 lb 11.779 oz Radiology Reports for the Last 24 Hours: Chest x-ray no acute findings Constitutional Constitutional: no acute distress and morbidly obese Comments: Patient responds well but she seems to be blunted, and slow in responding *Routine HEENT Exam Head: Present normocephalic and atraumatic Eye: Present EOMI and PERRL ENT: Present mucous membranes dry *Routine Neck Exam Neck: Present supple and full ROM Routine Chest/Breast/Axilla Exam Comments: No injury to chest wall are back found on exam *Routine Respiratory Exam Respiratory: Present CTA bilaterally, normal respiratory effort, able to speak in complete sentences and symmetric chest movement Comments: Lungs very clear on examination no abnormal findings *Routine Cardiovascular Exam Cardiovascular: Present RRR, Normal S1, Normal S2 and murmur Comments: Mild grade 2/6 cardiac murmur *Routine Abdominal Exam Abdominal: Present soft and obese Comments: No tenderness found during exam *Routine Rectal Exam Rectal:: deferred *Routine Genitalia Exam Genitalia:: deferred *Routine Extremities Exam Comments: No joint swelling no edema noted patient is able to stand and walk without assistance, brisk capillary refill to all nailbeds Routine Back/Spine/Pelvis Exam Back/Spine: Present full ROM Comments: No signs of injury to back patient is able to sit up and move without any difficulty *Routine Skin Exam Skin: Present intact, warm and normal turgor Comments: Significant amount of mild skin changes such as seborrheic keratosis *Routine Neurological Exam Neurological: Present alert, oriented X3, CN II-XII intact, normal reflexes, normal tone, vision grossly intact and hearing grossly intact Comments: No significant neurologic deficits found, feeling to lower extremities equal and she does feel me touching question whether is blunted some but do not see any significant peripheral neuropathy, Routine Psychiatric Exam Psychiatric: Present normal affect, normal thought process, cooperative, good insight and good judgment H&P: Result Impressions 1. Poorly controlled diabetes mellitus. Was going to have Trulicity added has just received the medication but has not taken the first dose., During exam and history taking could not find a reason for her sudden increase in her blood sugar which is from symptoms of dizziness may have been present for up to a week. Patient noted as being dehydrated Imaging and Cardiology Chest x-ray: Status: image reviewed by me Additional comments: No acute finding on chest film Assessment and Plan *Assessment and plan (1) DKA (diabetic ketoacidosis): Status: Acute Qualifiers: Diabetes mellitus type: type 1 Diabetes mellitus complication detail: without coma Qualified Code(s): E10.10 - Type 1 diabetes mellitus with ketoacidosis without coma Category: Medical Code(s): E11.10 - Type 2 diabetes mellitus with ketoacidosis without coma (2) Dehydration: Status: Acute Category: Medical Code(s): E86.0 - Dehydration (3) Chronic kidney disease, stage 1: Status: Chronic Category: Medical Code(s): N18.1 - Chronic kidney disease, stage 1 (4) Agoraphobia: Status: Acute Category: Medical Code(s): F40.00 - Agoraphobia, unspecified (5) Generalized anxiety disorder: Status: Acute Category: Medical Code(s): F41.1 - Generalized anxiety disorder (6) Obesity (BMI 30-39.9): Status: Chronic Category: Medical Code(s): E66.9 - Obesity, unspecified (7) Dizziness: Status: Acute Category: Medical Code(s): R42 - Dizziness and giddiness Plan 1 patient will be placed on the DKA protocol. This is being started in the emergency room, patient will then be transported up to the ICU., Will continue to slowly rehydrate the patient try to slowly bring the blood sugar down. Will continue to look for any secondary infection which has not been found.
[2024-10-01 06:52] LABS: Anion Gap 14.3 mEq/L (5-15); Blood Urea Nitrogen 37 mg/dl (7-17); Calcium 8.6 mg/dl (8.4-10.2); Carbon Dioxide 21 mmol/L (22.0-30.0); Chloride 94 mmol/L (98-107); Creatinine Clearance Estimated 34 mL/min (50-200); Estimated Glomerular Filt Rate 31 ml/min (>60); GFR (African American) 37 ML/MIN (>60); Magnesium 2.7 mg/dl (1.6-2.3); Phosphorous 4.3 mg/dl (2.5-4.5); Potassium 4.3 mmoL/L (3.5-5.1); Sodium 125 mmol/L (136-145)
[2024-10-01 06:59] LABS: Glucose 595 mg/dl (74-100)
[2024-10-01 07:22] LABS: POC Glucose,Bedside 530 (70-110)
[2024-10-01] MEDS: 0.9% NaCl w/20mEq KCL 1,000 ML 150 ML IV (07:37)
--- NOTE | 2024-10-01 07:47 | PC.NURSE ---
Per manager shift, patient is unaware of the medication she takes daily including dosages. Patient states to call [facility] in the morning and they would be able to confirm medications. Patient states some have been changed recently.
[2024-10-01 08:18] LABS: POC Glucose,Bedside 466 (70-110)
[2024-10-01 08:59] LABS: Reflex Lactic Add Lactic Reflex
[2024-10-01 09:17] LABS: POC Glucose,Bedside 304 (70-110)
[2024-10-01 09:37] LABS: Chloride 98 mmol/L (98-107); Potassium 3.8 mmoL/L (3.5-5.1); Sodium 130 mmol/L (136-145)
[2024-10-01 09:39] LABS: Blood Urea Nitrogen 35 mg/dl (7-17); Creatinine Clearance Estimated 36 mL/min (50-200); Estimated Glomerular Filt Rate 33 ml/min (>60); GFR (African American) 40 ML/MIN (>60)
[2024-10-01 09:40] LABS: Anion Gap 13.8 mEq/L (5-15); Calcium 8.8 mg/dl (8.4-10.2); Carbon Dioxide 22 mmol/L (22.0-30.0); Glucose 237 mg/dl (74-100); Magnesium 2.6 mg/dl (1.6-2.3); Phosphorous 3.7 mg/dl (2.5-4.5)
[2024-10-01 09:47] LABS: Lactic Acid Follow Up (RFLX 1) 2.2 mmol/L (0.7-2.1)
--- NOTE | 2024-10-01 09:55 | PC.NURSE ---
Called [facility] to request med list be faxed to department. Awaiting fax at this time.
[2024-10-01 10:05] LABS: POC Glucose,Bedside 212 (70-110)
--- NOTE | 2024-10-01 10:59 | HMH.PHAINT1 ---
Pharmacy Intervention Comments: MEDIATION RECONCILIATION COMPLETE USING LIST FROM RECENT MD OFFICE VISIT NOTE, EXTERNAL PHARMACY FILL HISTORY, AND [facility] REPORT.
[2024-10-01 11:08] LABS: POC Glucose,Bedside 215 (70-110)
[2024-10-01] MEDS: INSULIN GLARGINE 100 UNITS/ML 10ML VIAL 30 UNIT SUBCUT (11:15)
[2024-10-01] MEDS: humaLOG 100 UNITS/ML 10ML VIAL (SSI) SUBCUT ×3 (11:15→21:37)
[2024-10-01 11:25] LABS: Reflex Lactic (2 hrs) Add Lactic Reflex
[2024-10-01 12:25] LABS: Lactic Acid Follow up (RFLX 2) 1.7 mmol/L (0.7-2.1)
[2024-10-01 14:11] LABS: Troponin I < 0.01 ng/ml (0.00-0.034)
--- NOTE | 2024-10-01 14:45 | PC.NURSE ---
Report given to Lillian Cuellar RN on Second floor.
[2024-10-01 14:48] LABS: Chloride 99 mmol/L (98-107)
[2024-10-01 14:49] LABS: Potassium 3.9 mmoL/L (3.5-5.1); Sodium 128 mmol/L (136-145)
[2024-10-01 14:51] LABS: Blood Urea Nitrogen 31 mg/dl (7-17); Creatinine Clearance Estimated 42 mL/min (50-200); Estimated Glomerular Filt Rate 39 ml/min (>60); GFR (African American) 47 ML/MIN (>60)
[2024-10-01 14:52] LABS: Anion Gap 11.9 mEq/L (5-15); Calcium 8.4 mg/dl (8.4-10.2); Carbon Dioxide 21 mmol/L (22.0-30.0); Glucose 253 mg/dl (74-100); Magnesium 2.3 mg/dl (1.6-2.3); Phosphorous 4.3 mg/dl (2.5-4.5)
--- NOTE | 2024-10-01 14:55 | PC.NURSE ---
[id number] report was called to kathryn BAILEY on M/S. pt tx to [facility] 2nd floor via wheelchair @[phone]
--- NOTE | 2024-10-01 15:23 | DIET.NUTRFU ---
Included diabetic education in discharge paperwork, will followup for further education
[2024-10-01] MEDS: PREGABALIN 100MG CAPSULE 200 MG PO (16:39)
[2024-10-01 16:54] LABS: POC Glucose,Bedside 347 (70-110)
--- NOTE | 2024-10-01 17:16 | EXP.EVENT.NO ---
DKA resolved, transitioned to Lantus 30 units and high dose sliding scale. It is unclear why patient is taking both Lantus and 70/30 insulin. She reportedly takes a total of 200 units. Will monitor blood glucose closely, and tailor regimen before discharge. Will benefit from sliding scale insulin upon discharge.
[2024-10-01] MEDS: FAMOTIDINE 20MG TABLET 20 MG PO (21:37)
[2024-10-01 21:38] LABS: POC Glucose,Bedside 328 (70-110)
[2024-10-01] MEDS: INSULIN GLARGINE 100 UNITS/ML 3ML FLEXPEN 20 UNIT SUBCUT (21:38)
[2024-10-02 03:00] VITALS: BP 146/74; PULSE 83; RESP 19; TEMP 37.5; O2SAT 98
[2024-10-02 04:00] VITALS: BMI 37.6
--- NOTE | 2024-10-02 04:22 | PC.NURSE ---
V/s, o4, RA, independent. Blood glucose monitored. Pt is pending possible d/c today. No acute events to report, plan of care ongoing.
[2024-10-02] MEDS: humaLOG 100 UNITS/ML 10ML VIAL (SSI) SUBCUT (06:00)
[2024-10-02 07:00] VITALS: BP 139/71; PULSE 90; RESP 16; TEMP 36.8; O2SAT 96
[2024-10-02 07:02] LABS: POC Glucose,Bedside 300 (70-110)
[2024-10-02] MEDS: INSULIN GLARGINE 100 UNITS/ML 3ML FLEXPEN 30 UNIT SUBCUT (09:51)
--- NOTE | 2024-10-02 10:12 | EXP.DC.SUM ---
General Admission date:: 10/01/24 HPI HPI HPI: This morbidly obese female who has had diabetes for quite some time. Gives a history of having hemoglobin A1c as 12 and normal blood sugar around 250.. Patient is seeing Dr. De La Cruz about 3 weeks ago has had some of her psychiatric medications stopped. And was supposed to start on Mounjaro but was unable to get that due to insurance and has just received Trulicity but has not taken her first dose. Over the past 2 weeks she has been feeling more and more dizzy. So she has come in tonight with her ., And initial exam shows that she is probably mild to moderately dehydrated. Blood sugars were greater than 700 hemoglobin A1c greater than 12. Slightly decreased pH on lab work. Patient denies any other problems as far as fever being ill missing medications. So unknown cause for the sudden increase in her blood sugars. Plan at this time we will admit her to the stepdown unit. Continue insulin drip and DKA protocol Rest of exam basically negative reviewing her old records Long history of bipolar, anxiety agoraphobia, and in several notes moves very slowly but has a normal TSH and T4. On exam patient asked similar to a person with significant hypothyroidism. Hospital Course Hospital Course Hospital Course: Hannah Jefferson is a 59-year-old female with a medical history significant for insulin-dependent diabetes who presented with weakness, nausea and was admitted for DKA. #DKA #Insulin-dependent diabetes ? DKA resolved with IV fluids, insulin. Initial blood sugars in the 700. A1c 12.9%. ? Patient states her Dexcom has stopped working for 3 months, and has been working with the company to get a replacement. She states she accidentally filled out the paperwork incorrectly. ? As a result, patient states she has been taking much less of her insulin at home and has not started Jardiance 25 mg recently started by her PCP. She was also prescribed Trulicity days before admission, and has not taken it yet. ? Patient was extensively educated on the importance of controlling her sugars and diabetes and discussed dietary changes including switching sugar drinks to diet. She was agreeable to this plan. ? Changed Lantus 80 units daily to 40 units twice daily for better absorption. Patient will start using her Trulicity, we will hold off on starting Jardiance 25 mg to allow Trulicity to achieve steady state for a week to avoid hypoglycemia. Advised patient to decrease her Humulin 70/30 insulin regimen by half as we are changing Lantus regimen and starting Trulicity, 40 units with lunch and 20 units with dinner and to follow-up with her PCP in the next few days. She was agreeable to this plan. Did not previously tolerate metformin due to diarrhea. ? Sent in your prescription for Dexcom G7, and glucometer with lancets/test trips and needles if G7 is not covered by insurance. #CAD #Hypertension #Hyperlipidemia ? Continue aspirin, Plavix, statin, losartan, hydrochlorothiazide. #Mood disorder ? Continue home Wellbutrin, desvenlafaxine, Vraylar. #GERD ? Continue PPI. Total time spent on discharge: 32 minutes on chart review, counseling, documentation, and direct care with patient. Exam Data for Last 24 hours Vital signs and Labs for Last 24 Hours: Temp Pulse Resp BP Pulse Ox O2 Del Method 98.3 F 90 16 139/71 96 Room Air 10/02/24 07:00 10/02/24 07:00 10/02/24 07:00 10/02/24 07:00 10/02/24 07:00 10/02/24 09:00 Laboratory Results - last 24 hr 10/01/24 07:25: Troponin I < 0.01 10/01/24 11:00: POC Glucose 215 H 10/01/24 12:05: Lactate 1.7 10/01/24 14:00: Sodium 128 L, Potassium 3.9, Chloride 99, Carbon Dioxide 21 L, Anion Gap 11.9, BUN 31 H, Creatinine 1.40 H, Estimated Creat Clear 42, Estimated GFR 39 L, Est GFR ( Amer) 47 L, Glucose 253 H, Calcium 8.4, Phosphorus 4.3, Magnesium 2.3 D 10/01/24 16:32: POC Glucose 347 H* 10/01/24 21:31: POC Glucose 328 H* 10/02/24 06:55: POC Glucose 300 H I & O for Last 24 hours: Intake & Output 09/29/24 09/30/24 10/01/24 10/02/24 23:59 23:59 23:59 23:59 Intake Total 307.912 / 307.912 300 / 300 Output Total 400 / 400 0 / 0 Balance -92.088 / -92.088 300 / 300 Weight 116 kg 108.862 kg Microbiology Reports for the Last 24 Hours: Microbiology 10/01/24 05:50 Blood Blood Culture - Preliminary NO GROWTH AFTER 24 HOURS 10/01/24 05:50 Blood Blood Culture - Preliminary NO GROWTH AFTER 24 HOURS Constitutional Constitutional: no acute distress and obese *Routine HEENT Exam Head: Present normocephalic Eye: Present EOMI and PERRL ENT: Present mucous membranes moist *Routine Neck Exam Neck: Present supple; Absent lymphadenopathy *Routine Respiratory Exam Respiratory: Present CTA bilaterally *Routine Cardiovascular Exam Cardiovascular: Present RRR *Routine Abdominal Exam Abdominal: Present soft and normoactive bowel sounds; Absent tenderness *Routine Extremities Exam Extremities: Absent cyanosis, clubbing or edema *Routine Skin Exam Skin: Present warm; Absent rash *Routine Neurological Exam Neurological: Present alert and oriented X3 Results Data Completed and Pending Labs on day of discharge: Labs from last 24 hours 10/02/24 10/01/24 10/01/24 06:55 21:31 16:32 Sodium Potassium Chloride Carbon Dioxide Anion Gap BUN Creatinine Estimated Creat Clear Estimated GFR Est GFR ( Amer) Glucose POC Glucose 300 H 328 H* 347 H* Lactate Calcium Phosphorus Magnesium Troponin I 10/01/24 10/01/24 10/01/24 14:00 12:05 11:00 Sodium 128 L Potassium 3.9 Chloride 99 Carbon Dioxide 21 L Anion Gap 11.9 BUN 31 H Creatinine 1.40 H Estimated Creat Clear 42 Estimated GFR 39 L Est GFR ( Amer) 47 L Glucose 253 H POC Glucose 215 H Lactate 1.7 Calcium 8.4 Phosphorus 4.3 Magnesium 2.3 D Troponin I 10/01/24 07:25 Sodium Potassium Chloride Carbon Dioxide Anion Gap BUN Creatinine Estimated Creat Clear Estimated GFR Est GFR ( Amer) Glucose POC Glucose Lactate Calcium Phosphorus Magnesium Troponin I < 0.01 Preliminary micro results at discharge 10/01/24 05:50 Blood Culture - Preliminary Blood NO GROWTH AFTER 24 HOURS 10/01/24 05:50 Blood Culture - Preliminary Blood NO GROWTH AFTER 24 HOURS DS: Diagnosis Discharge Diagnosis (1) DKA (diabetic ketoacidosis): Status: Acute Code(s): E11.10 - Type 2 diabetes mellitus with ketoacidosis without coma Qualifiers: Diabetes mellitus complication detail: without coma Diabetes mellitus type: type 1 Qualified Code(s): E10.10 - Type 1 diabetes mellitus with ketoacidosis without coma (2) Dehydration: Status: Acute Code(s): E86.0 - Dehydration (3) Chronic kidney disease, stage 1: Status: Chronic Code(s): N18.1 - Chronic kidney disease, stage 1 (4) Agoraphobia: Status: Acute Code(s): F40.00 - Agoraphobia, unspecified (5) Generalized anxiety disorder: Status: Acute Code(s): F41.1 - Generalized anxiety disorder (6) Obesity (BMI 30-39.9): Status: Chronic Code(s): E66.9 - Obesity, unspecified (7) Dizziness: Status: Acute Code(s): R42 - Dizziness and giddiness Meds Home Medications and Allergies Home Medications ?Medication ?Instructions ?Recorded ?Confirmed ?Type bupropion HCl 150 mg 24 hr tablet, 150 mg PO DAILY Anxiety #90 tabs 08/16/24 10/01/24 Rx extended release clopidogrel 75 mg tablet 75 mg PO DAILY Blood thinner #90 08/16/24 10/01/24 Rx tabs losartan 100 1 tab PO DAILY #90 tabs 08/16/24 10/01/24 Rx mg-hydrochlorothiazide 25 mg tablet pregabalin 200 mg capsule 200 mg PO BID 30 days #60 caps 08/16/24 10/01/24 Rx albuterol sulfate 2.5 mg/3 mL 1.25 mg inhalation Q4H 10/01/24 10/01/24 History (0.083 %) solution for nebulization aspirin 81 mg tablet,delayed 81 mg PO DAILY 10/01/24 10/01/24 History release atorvastatin 80 mg tablet 80 mg PO DAILY 10/01/24 10/01/24 History cariprazine 4.5 mg capsule 4.5 mg PO DAILY 10/01/24 10/01/24 History (Vraylar) desvenlafaxine succinate 50 mg 50 mg PO DAILY 10/01/24 10/01/24 History tablet,extended release 24 hr dulaglutide 0.75 mg/0.5 mL 0.75 mg SQ WEEKLY 10/01/24 10/01/24 History subcutaneous pen injector (Trulicity) empagliflozin 25 mg tablet 25 mg PO DAILYDM 10/01/24 10/01/24 History (Jardiance) ergocalciferol (vitamin D2) 1,250 50,000 unit PO WEEKLY 10/01/24 10/01/24 History mcg (50,000 unit) capsule famotidine 40 mg tablet 40 mg PO DAILY 10/01/24 10/01/24 History finerenone 10 mg tablet (Kerendia) 10 mg PO DAILY 10/01/24 10/01/24 History pantoprazole 40 mg tablet,delayed 40 mg PO DAILY 10/01/24 10/01/24 History release blood-glucose meter #1 ea 10/02/24 Rx blood-glucose meter,continuous #1 ea 10/02/24 Rx (Dexcom G7 Anatomic Pathology Assistant) blood-glucose sensor (Dexcom G7 #1 ea 10/02/24 Rx Sensor device) insulin NPH-regular 70-30 U-100 20 unit (0.2 mL) SQ 1700 30 days 10/02/24 10/01/24 Rx insulin 100 unit/mL subcutaneous #0 mL pen (Humulin 70/30 U-100 KwikPen) insulin NPH-regular 70-30 U-100 40 unit (0.4 mL) SQ 1200 30 days 10/02/24 10/01/24 Rx insulin 100 unit/mL subcutaneous #0 mL pen (Humulin 70/30 U-100 KwikPen) insulin glargine 100 unit/mL (3 40 unit (0.4 mL) SQ BID 30 days #0 10/02/24 10/01/24 Rx mL) subcutaneous pen (Lantus mL Solostar U-100 Insulin) lancets-blood glucose test #1 ea 10/02/24 Rx strips-pen needles with gauze kit New Prescriptions to Start Prescriptions: blood-glucose meter Ezequiel Brewster blood-glucose meter,continuous [Dexcom G7 Anatomic Pathology Assistant] Ezequiel Brewster blood-glucose sensor [Dexcom G7 Sensor] Ezequiel Brewster lancet-gluc [id number] Ezequiel Brewster Allergies Allergy/AdvReac Type Severity Reaction Status Date / Time latex (LATEX) Allergy Intermediate I-HIVES Verified 08/16/24 14:20 sulfamethoxazole (From Allergy Intermediate I-ITCHING Verified 08/16/24 14:20 BACTRIM) trimethoprim (From BACTRIM) Allergy Intermediate I-ITCHING Verified 08/16/24 14:20 lisinopril (LISINOPRIL) Allergy Unknown S-DIFF. Verified 08/16/24 14:20 BREATHING Discharge Plan Disposition Patient Disposition: Home, Self-Care Condition: Fair Discharge Order Discharge Orders: Discharge Order (Routine); Ordered 10/02/24 Ordered By: Ezequiel Brewster Follow up Plan Follow up with: Derrick De La Cruz DO [Primary Care Provider] - 10/03/24 (please call for appointment) Prescriptions/Medication Reconciliation: New (DME) Dexcom G7 Sensor Device See Rx Instructions .Route Qty: 1 0RF Rx Instructions: As directed (DME) Dexcom G7 Anatomic Pathology Assistant Misc See Rx Instructions .Route Qty: 1 0RF Rx Instructions: As directed (DME) blood-glucose meter Kit See Rx Instructions .Route Qty: 1 0RF Rx Instructions: As directed (DME) lancet-gluc [id number] Kit See Rx Instructions .Route Qty: 1 0RF Rx Instructions: As directed Continued bupropion HCl 150 mg tablet extended release 24 hr 150 mg PO DAILY Qty: 90 3RF Rx Instructions: TAKE ONE TABLET BY MOUTH EVERY DAY clopidogrel 75 mg tablet 75 mg PO DAILY Qty: 90 3RF losartan-hydrochlorothiazide 100-25 mg tablet 1 tab PO DAILY Qty: 90 0RF pregabalin 200 mg capsule 200 mg PO BID 30 Days Qty: 60 2RF atorvastatin 80 mg tablet 80 mg PO DAILY famotidine 40 mg tablet 40 mg PO DAILY pantoprazole 40 mg tablet,delayed release (DR/EC) 40 mg PO DAILY desvenlafaxine succinate 50 mg tablet extended release 24 hr 50 mg PO DAILY aspirin 81 mg tablet,delayed release (DR/EC) 81 mg PO DAILY ergocalciferol (vitamin D2) 1,250 mcg (50,000 unit) capsule 50,000 unit PO WEEKLY Patient Comments: TAKE ONE CAPSULE BY MOUTH ONCE A WEEK Trulicity 0.75 mg/0.5 mL pen injector 0.75 mg SQ WEEKLY albuterol sulfate 2.5 mg /3 mL (0.083 %) solution for nebulization 1.25 mg inhalation Q4H Vraylar 4.5 mg capsule 4.5 mg PO DAILY Patient Comments: TAKE ONE CAPSULE BY MOUTH EVERY DAY FOR ANXIETY Kerendia 10 mg tablet 10 mg PO DAILY Patient Comments: TAKE ONE TABLET BY MOUTH EVERY DAY Changed insulin glargine [Lantus Solostar U-100 Insulin] 100 unit/mL (3 mL) insulin pen 40 unit SQ BID 30 Days Qty: 0 0RF Humulin 70/30 U-100 KwikPen 100 unit/mL (70-30) insulin pen 20 unit SQ 1700 30 Days Qty: 0 0RF Patient Comments: INJECT 80 UNITS SUBCUTANEOUSLY AT lunchtime meal AND INJECT 40 UNITS AT evening meal Humulin 70/30 U-100 KwikPen 100 unit/mL (70-30) insulin pen 40 unit SQ 1200 30 Days Qty: 0 0RF Rx Instructions: INJECT 80 UNITS SUBCUTANEOUSLY AT lunchtime meal AND INJECT 40 UNITS AT evening meal Held Jardiance 25 mg tablet 25 mg PO DAILYDM Hold Instructions: Resume on 10/05/24. Start Trulicity before starting this medication. Talk to PCP before starting this medication. Patient Comments: TAKE ONE TABLET BY MOUTH EVERY DAY Problem Reconciliation Problems Reviewed?: Yes Patient Discharge Instructions Patient Instructions: Carbohydrate-Counting Diet, Diabetic Ketoacidosis, Using Nutrition Labels: Carbohydrate Diet Print Language: Belarusian Providers Primary Care Provider: Derrick De La Cruz Admit Provider: Ezequiel Brewster Attending Provider: Ezequiel Brewster
--- NOTE | 2024-10-03 11:14 | SW/DCPLANNER ---
Spoke with patient on the phone. Patient stated that she is doing good. Patient stated that she has not called to see when her time of appointment is with her primary care provider. Patient stated that she was able to fern picker her dexcom and will be getting the others with her pharmacy. Patient stated that she has no concerns or questions at this time. Judah Bauer
== END 2024-10-02 10:51 | disposition home or self-care (01) ==
LOC: ER 04:10 → ICU 06:17 → 2ND 15:01 → ICU 10-03 07:00
PROVIDERS: Nurse Practitioner Family; Admitting Provider Student in an Organized Health Care Education/Training Program; Emergency Provider Emergency Medicine; PCP Internal Medicine; Visit Provider Student in an Organized Health Care Education/Training Program
DX: E11.10 Type 2 diabetes mellitus with ketoacidosis without coma (principal); E66.01 Morbid (severe) obesity due to excess calories; F41.1 Generalized anxiety disorder; F17.210 Nicotine dependence, cigarettes, uncomplicated; E78.5 Hyperlipidemia, unspecified; K21.9 Gastro-esophageal reflux disease without esophagitis; N18.1 Chronic kidney disease, stage 1; F40.00 Agoraphobia, unspecified; Z82.49 Family history of ischemic heart disease and other diseases of the circulatory system; Z79.899 Other long term (current) drug therapy; Z79.02 Long term (current) use of antithrombotics/antiplatelets; Z79.82 Long term (current) use of aspirin; Z79.84 Long term (current) use of oral hypoglycemic drugs; Z79.85 Long-term (current) use of injectable non-insulin antidiabetic drugs; Z88.2 Allergy status to sulfonamides; Z68.37 Body mass index [BMI] 37.0-37.9, adult; Z88.8 Allergy status to other drugs, medicaments and biological substances; Z91.040 Latex allergy status; E86.0 Dehydration; E11.22 Type 2 diabetes mellitus with diabetic chronic kidney disease; Z55.6 Problems related to health literacy
CPT/HCPCS: 36415; 71045; 80048; 80053; 81001; 82009; 82803; 82962; 83036; 83605; 83735; 83880; 84100; 84436; 84443; 84484; 84540; 85025; 85378; 87040; 87086; 87088; 87186; 93005; 99291; G0378; J7030

== ENCOUNTER 2024-10-03 18:41 | Observation (INO) | payer MEDICAID, SELFPAY ==
[2024-10-03 18:41] VITALS: BP 175/83; PULSE 90; RESP 28; TEMP 36.7; O2SAT 99; BMI 45.4
--- NOTE | 2024-10-03 18:41 | ED_ITS ---
<Statement entered by Kvng Cobian MD - 10/03/24 23:36> I was consulted by the AVERY, and we discussed the complexity of the problems being addressed. I approved the treatment and management plan for this patient's care in the emergency department, thus performing a substantive portion of the medical decision making. 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 Patient was just admitted to our hospital and discharged yesterday after a hypoglycemic episode. She was reportedly discharged with both long-acting and short acting insulin. However patient presents with confusion and unable to give a coherent story. She is unable to tell me whether or not she is taking short acting insulin today but recalls taking long-acting insulin prior to EMS arrival. Patient's son actually called EMS. Patient denies chest pain fever chills hemoptysis hematochezia melena nausea vomiting diarrhea but states that she does not feel right . She cannot elaborate further. Related Data Home Medications ?Medication ?Instructions ?Recorded ?Confirmed albuterol sulfate 2.5 mg/3 mL 1.25 mg inhalation Q4H 10/01/24 10/01/24 (0.083 %) solution for nebulization aspirin 81 mg tablet,delayed 81 mg PO DAILY 10/01/24 10/01/24 release atorvastatin 80 mg tablet 80 mg PO DAILY 10/01/24 10/01/24 cariprazine 4.5 mg capsule 4.5 mg PO DAILY 10/01/24 10/01/24 (Vraylar) desvenlafaxine succinate 50 mg 50 mg PO DAILY 10/01/24 10/01/24 tablet,extended release 24 hr dulaglutide 0.75 mg/0.5 mL 0.75 mg SQ WEEKLY 10/01/24 10/01/24 subcutaneous pen injector (Trulicity) empagliflozin 25 mg tablet 25 mg PO DAILYDM 10/01/24 10/01/24 (Jardiance) ergocalciferol (vitamin D2) 1,250 50,000 unit PO WEEKLY 10/01/24 10/01/24 mcg (50,000 unit) capsule famotidine 40 mg tablet 40 mg PO DAILY 10/01/24 10/01/24 finerenone 10 mg tablet (Kerendia) 10 mg PO DAILY 10/01/24 10/01/24 pantoprazole 40 mg tablet,delayed 40 mg PO DAILY 10/01/24 10/01/24 release Previous Rx's ?Medication ?Instructions ?Recorded bupropion HCl 150 mg 24 hr tablet, 150 mg PO DAILY Anxiety #90 tabs 08/16/24 extended release clopidogrel 75 mg tablet 75 mg PO DAILY Blood thinner #90 08/16/24 tabs losartan 100 1 tab PO DAILY #90 tabs 08/16/24 mg-hydrochlorothiazide 25 mg tablet pregabalin 200 mg capsule 200 mg PO BID 30 days #60 caps 08/16/24 blood-glucose meter #1 ea 10/02/24 blood-glucose meter,continuous #1 ea 10/02/24 (Dexcom G7 Combiner Operator) blood-glucose sensor (Dexcom G7 #1 ea 10/02/24 Sensor device) insulin NPH-regular 70-30 U-100 20 unit (0.2 mL) SQ 1700 30 days 10/02/24 insulin 100 unit/mL subcutaneous #0 mL pen (Humulin 70/30 U-100 KwikPen) insulin NPH-regular 70-30 U-100 40 unit (0.4 mL) SQ 1200 30 days 10/02/24 insulin 100 unit/mL subcutaneous #0 mL pen (Humulin 70/30 U-100 KwikPen) insulin glargine 100 unit/mL (3 40 unit (0.4 mL) SQ BID 30 days #0 10/02/24 mL) subcutaneous pen (Lantus mL Solostar U-100 Insulin) lancets-blood glucose test #1 ea 10/02/24 strips-pen needles with gauze kit Allergies Allergy/AdvReac Type Severity Reaction Status Date / Time latex (LATEX) Allergy Intermediate I-HIVES Verified 08/16/24 14:20 sulfamethoxazole (From Allergy Intermediate I-ITCHING Verified 08/16/24 14:20 BACTRIM) trimethoprim (From BACTRIM) Allergy Intermediate I-ITCHING Verified 08/16/24 14:20 lisinopril (LISINOPRIL) Allergy Unknown S-DIFF. Verified 08/16/24 14:20 BREATHING PFSH PFS Disclaimer: The information contained in this section may have been updated after the patient was seen, as this information can be updated by other users. Medical History Agoraphobia Generalized anxiety disorder Urinary incontinence, urge Dyspnea Dizziness Neuropathy Bipolar depression Depression Bipolar disorder current episode depressed Allergic rhinitis Diabetic neuropathy associated with type 2 diabetes mellitus Coronary artery disease Hypertension Hyperlipidemia GERD (gastroesophageal reflux disease) Anxiety Diabetes mellitus Surgical History Hx of cardiac cath H/O exploratory laparotomy Family History Mother Family history of hypertension Coronary artery disease Social History Smoking Status: Current every day smoker tobacco type: cigarettes packs per day: 1 alcohol intake: former substance use type: marijuana current occupational status: disabled Travel in the last 8 weeks: None housing: house number of children: 3 caffeine: Yes do you feel safe at home: Yes victim of physical abuse: No victim of emotional abuse: No victim of sexual abuse: No would you like helpful sources: No Have you lived/traveled outside US in past 30 days?: No Contact w/someone who lives/traveled outside US past 30 days?: No Exposure to someone with infectious disease in past 14 days?: No Do you have a fever (greater than 100.4 F or 38 C)?: No Have you tested positive for COVID-19: No Exposed to someone with COVID-19 in past 14 days?: No Do you have a sore throat?: No Do you have a cough?: No Do you have any weakness?: No Do you have any diarrhea?: No Are you experiencing any unusual bleeding?: No Do you have any muscle aches/pain?: No Do you have any abdominal pain?: No Are you experiencing loss of taste or smell?: No Other Medical History Have you received the Flu Vaccine for this season: No Have you received the Pneumonia Vaccine: No ROS Obtained: Yes Systems reviewed as appropriate & no additional complaints except as documented Physical Exam General General appearance: lethargic and obese Respiratory Respiratory exam: Present normal lung sounds bilaterally Cardiovascular Cardiovascular exam: Present regular rate Neurological Exam Neurological exam: Absent oriented X3 (Patient oriented to self and place but not circumstance) Medical Decision Making Medical Records Medical records reviewed: Yes I reviewed the patient's medical records. Screening: Per USPSTF and CDC recommendations, given the prevalence of disease in our region, it is our hospital?s policy to screen for HIV and viral Hepatitis for all patients aged 18 and over and those with ongoing risk factors. Emigdio Inquiry Pt receiving controlled substance: No Vital Signs: 10/03/24 18:41 Temperature 98.0 F Temperature Source Axillary Pulse Rate [Right Brachial] 90 Respiratory Rate 28 H Blood Pressure [Right Arm] 175/83 H Blood Pressure Mean [Right Arm] 113 Blood Pressure Source [Right Arm] Automatic Cuff Blood Pressure Position [Right Arm] Sitting 02 Sat by Pulse Oximetry 99 Oxygen Delivery Method Room Air Lab Data Lab results reviewed: Yes I reviewed the patient's lab results. Lab Results 10/03/24 18:30: Random Glucose 645 H* 10/03/24 18:36: WBC 8.9, RBC 4.84, Hgb 14.4, Hct 42.6, MCV 88.0, MCH 29.8, MCHC 33.8, RDW 12.7, Plt Count 169, MPV 11.7 H, Neut % (Auto) 57.8, Lymph % (Auto) 34.6, [place] % (Auto) 6.0, Eos % (Auto) 0.3, Baso % (Auto) 1.0, Neut # (Auto) 5.1, Lymph # (Auto) 3.1, [place] # (Auto) 0.5, Eos # (Auto) 0.0, Baso # (Auto) 0.1, S odium 130 L, Potassium 5.1 D, Chloride 97 L, Carbon Dioxide 19 L, Anion Gap 19.1 H, BUN 18 H D, Creatinine 0.90 D, Estimated Creat Clear 67, Estimated GFR 65, Est GFR ( Amer) 78 D, Glucose 640 H*, Calcium 9.4, Phosphorus 3.3, M agnesium 1.8 D, Total Bilirubin 0.9, AST 70 H, ALT 61 D, Alkaline Phosphatase 124, Total Protein 7.3, Albumin 4.5, Globulin 2.8, Albumin/Globulin Ratio 1.6, Acetone Level None detected 10/03/24 20:05: VBG pH 7.36, VBG pCO2 39.1, VBG pO2 54.7 H, VBG HCO3 21.3 L, VBG Total CO2 22.5 L, VBG O2 Saturation 87.4 H, VBG Base Excess -4.2 L, VBG Lactic Acid 2.6 H 10/03/24 18:36 10/03/24 18:36 Orders (Tests/Meds): ED MEDICATIONS Generic Name Dose Route Start Last Admin Trade Name Tania PRN Reason Stop Dose Admin Acetaminophen 650 mg 10/03/24 21:17 Acetaminophen 325mg Tab PO 11/02/24 21:16 Q4HP PRN Fever or Mild Pain (1-3) Enoxaparin Sodium 40 mg 10/04/24 09:00 Enoxaparin 40mg/0.4ml Syringe SUBCUT 11/03/24 08:59 DAILY ARETHA Insulin Human Lispro 0 unit 10/03/24 21:30 Humalog 100 Units/Ml 10ml Vial (Ssi) SUBCUT 11/02/24 21:29 Q3H ARETHA Protocol Pantoprazole Sodium 40 mg 10/04/24 21:00 Pantoprazole 40mg Tablet PO 11/03/24 20:59 HS ARETHA Discontinued Medications Generic Name Dose Route Start Last Admin Trade Name Tania PRN Reason Stop Dose Admin Sodium Chloride 1,000 mls @ 999 mls/hr 10/03/24 18:57 10/03/24 20:10 Sod Chlor 0.9% 1000ml Bag IV 10/03/24 19:57 999 mls/hr .Q1H1M ONE Administration Insulin Human Regular 10 unit 10/03/24 19:36 10/03/24 20:27 Insulin Human Regular 100 Units/Ml 10ml Vial IVP 10/03/24 19:37 10 unit ONCE ONE Administration ORDERS Category Date Time Status Acetone, Serum (Rapid) Stat Lab 10/03/24 18:36 Completed CBC w/Auto Diff [Complete Blood Count Auto Diff] Stat Lab 10/03/24 18:36 Completed CMP [Comprehensive Metabolic Panel] Stat Lab 10/03/24 18:36 Completed Glucose,Random Stat Lab 10/03/24 18:30 Completed Magnesium Stat Lab 10/03/24 18:36 Completed Phosphorous Stat Lab 10/03/24 18:36 Completed VBG [Venous Blood Gas] Stat RT 10/03/24 20:05 Completed Medical Decision Narrative: In summary patient is a 59-year-old female who presents to the emergency department for evaluation of high blood sugar and encephalopathy. Patient is usually normotensive with a blood pressure 175/83 pulse of 90 respiratory rate is 28 satting at 99 on room air upon arrival, afebrile. Physical exam is remarkable for a morbidly obese 59-year-old female, with a BMI of 45, who is restless tachypneic and awake but confused and cannot tell a coherent story currently. Breath sounds clear and equal bilaterally to the bases without adventitious sounds oromucosa is dry but there is no smell of acetone on her breath. Breath sounds are currently equal bilaterally to the bases without adventitious sounds. EKG is sinus rhythm on the bedside monitor patient was all 4 extremities is neurovascularly intact in all 4 extremities has no focal neurologic deficits pupils equal round reactive to light. Differential diagnosis includes hyperglycemia versus DKA versus other electrolyte abnormality. Initial workup will be conducted with hematologic labs urinalysis.. Initial interventions include crystalloid bolus 10 units IV push of regular insulin as her serum glucose is greater than 600. Initial workup reviewed by me shows that her hematologic labs are remarkable for normal white count with no shift normal pH with a VBG lactic acid of 2.6 negative acetone pseudohyponatremia 130 and anion gap of 19.1 serum glucose of 640 and GFR 65 with remainder of her hematologic labs being nonactionable. Upon repeat evaluation patient actually has returned to her baseline mentation her Bethany Coma Score is 15. I am able to get a more coherent story. She was prescribed short acting insulin however the pharmacy did not fill it but patient is unsure why. She has been taking 40 units of Lantus twice daily however.. Given this patient likely needs assistance and assurance that she has short acting insulin at home. Thus I had an interactive discussion with hospital medicine regarding patient WHITTEN findings and management and she will be admitted for further evaluation and care. Critical Care Critical Care Time Critical Care Time: Yes Attestation: On 10/03/24, the high probability of a clinically significant, sudden or life threatening deterioration of the following system(s) required my full and direct attention, intervention and personal management. The time I documented below is in addition to time spent performing reported procedures but includes the following listed in this critical care notation. Total Time Total Critical Care Time: 35
--- NOTE | 2024-10-03 18:41 | PC.NURSE ---
Geni Real checked a FSBS and the glucometer read High.
--- NOTE | 2024-10-03 18:46 | PC.NURSE ---
Bedside glucose read high.
[2024-10-03 19:04] LABS: Basophils # 0.1 K/mm3 (0-0.2); Eosinophils % 0.3 % (0.1-12.0); Hematocrit 42.6 % (37.0-47.0); Hemoglobin 14.4 g/dL (12.2-16.2); Lymphocytes # 3.1 K/mm3 (0.7-4.5); Lymphocytes % 34.6 % (10-50); Mean Corpuscular HGB Conc 33.8 g/dL (31.8-35.4); Mean Corpuscular Hemoglobin 29.8 pg (27.0-31.2); Mean Platelet Volume 11.7 fl (7.4-10.4); Monocytes # 0.5 K/mm3 (0.1-1.0); Neutrophils # 5.1 K/mm3 (1.8-7.8); Neutrophils % 57.8 % (37.0-80.0); Platelet Count 169 K/mm3 (142-424); Red Blood Count 4.84 M/mm3 (4.20-5.40); Red Cell Distribution Width 12.7 % (11.5-17.5); White Blood Count 8.9 K/mm3 (4.8-10.8)
[2024-10-03 19:20] LABS: Glucose,Random 645 mg/dL (74-100)
[2024-10-03 19:57] LABS: Acetone, Serum (Rapid) None Detected (None Detect)
[2024-10-03 20:02] LABS: Albumin Level 4.5 g/dl (3.5-5.0); Chloride 97 mmol/L (98-107); Potassium 5.1 mmoL/L (3.5-5.1); Sodium 130 mmol/L (136-145)
[2024-10-03 20:05] LABS: Alanine Aminotransferase 61 U/L (12-78); Albumin/Globulin Ratio 1.6 (1.1-1.8); Alkaline Phosphatase 124 U/L (38-126); Anion Gap 19.1 mEq/L (5-15); Aspartate Amino Transferase 70 U/L (14-36); Bilirubin,Total 0.9 mg/dl (0.2-1.3); Blood Urea Nitrogen 18 mg/dl (7-17); Carbon Dioxide 19 mmol/L (22.0-30.0); Creatinine Clearance Estimated 67 mL/min (50-200); Estimated Glomerular Filt Rate 65 ml/min (>60); GFR (African American) 78 ML/MIN (>60); Globulin 2.8 g/dL (1.3-3.2); Magnesium 1.8 mg/dl (1.6-2.3); Phosphorous 3.3 mg/dl (2.5-4.5); Total Protein,Serum 7.3 g/dl (6.3-8.2)
[2024-10-03 20:06] LABS: Calcium 9.4 mg/dl (8.4-10.2)
[2024-10-03] MEDS: 0.9 % SODIUM CHLORIDE 1000ML 1,000 ML 999 ML IV (20:10)
[2024-10-03 20:13] LABS: Lactate Venous 2.6 mmol/L (0.4-2.0); VBG Base Excess -4.2 mmol/L (-2.4-2.3); VBG HCO3 21.3 mmol/L (23-30); VBG Oxygen Saturation 87.4 % (50-70); VBG PCO2 39.1 mmol/L (35-51); VBG PH 7.36 mmol/L (7.31-7.41); VBG PO2 54.7 mmol/L (28-40); VBG Total CO2 22.5 mmol/L (23-27)
[2024-10-03] MEDS: INSULIN HUMAN REGULAR 100 UNITS/ML 10ML VIAL 10 UNIT IVP (20:27)
[2024-10-03 20:29] LABS: Glucose 640 mg/dl (74-100)
--- NOTE | 2024-10-03 21:22 | P.HP_ITS ---
<Statement entered by Casey Dueñas MD - 10/04/24 22:45> Rounded on patient after nurse practitioner. Personally examined and interviewed patient. Agree with exam findings and care plan as documented. Resume basal bolus regimen. Glucose in the 200s by my evaluation in the morning. White count normal. Repeat CBC, CMP, magnesium ordered for the morning. Patient afebrile. Stable on room air. After discussion with the ER physician, medicine decided to admit for glucose control and to establish basal bolus regimen for safe dispo home due to miscommunication from last visit. Fingersticks correlate to Dexcom, we use at this time. History of Present Illness *Admission Date: 10/03/24 *Reason for visit:: Hyperglycemia *History of present illness: This patient who was recently been discharged after being here with DKA. Patient had been on an insulin drip improved moved to the floor and then weaned. Patient was discharged from the hospital with orders for regular insulin that Biopar the patient was sent to [facility]. For some reason [facility] had canceled these prescriptions and she was only taking Lantus. He is come back to the emergency room with blood sugars greater than 600. Presently is alert and oriented. I do agree with the ER provider with not having insulin at home with the present condition to keep her from going into DKA we will go ahead and admit her to the floor plan on doing fingerstick blood sugars every 3 with sliding scale. I do not feel that the patient needs an insulin drip at this point in time but will be monitored through the night. Plan will consist of consult for case management to make sure that the patient is able to get short-term insulin before she is released from the hospital tomorrow. I do feel that this will be less than a 24-hour admission. But with the patient's present condition wanted make sure she does not decompensate and we will have to monitor for electrolyte and for fluid balance. [facility] Disclaimer: The information contained in this section may have been updated after the patient was seen, as this information can be updated by other users. Medical History Agoraphobia Generalized anxiety disorder Urinary incontinence, urge Dyspnea Dizziness Neuropathy Bipolar depression Depression Bipolar disorder current episode depressed Allergic rhinitis Diabetic neuropathy associated with type 2 diabetes mellitus Coronary artery disease Hypertension Hyperlipidemia GERD (gastroesophageal reflux disease) Anxiety Diabetes mellitus Surgical History Hx of cardiac cath H/O exploratory laparotomy Family History Mother Family history of hypertension Coronary artery disease Social History (Updated 10/03/24 @ 21:56 by Rachel Delgado RN) Smoking Status: Current every day smoker tobacco type: cigarettes packs per day: 1 alcohol intake: never substance use type: marijuana current occupational status: disabled Travel in the last 8 weeks: None housing: house number of children: 3 caffeine: Yes do you feel safe at home: Yes victim of physical abuse: No victim of emotional abuse: No victim of sexual abuse: No would you like helpful sources: No Have you lived/traveled outside US in past 30 days?: No Contact w/someone who lives/traveled outside US past 30 days?: No Exposure to someone with infectious disease in past 14 days?: No Do you have a fever (greater than 100.4 F or 38 C)?: No Have you tested positive for COVID-19: No Exposed to someone with COVID-19 in past 14 days?: No Do you have a sore throat?: No Do you have a cough?: No Do you have any weakness?: No Are you experiencing any nausea/vomitting?: No Do you have any diarrhea?: No Are you experiencing any unusual bleeding?: No Do you have any muscle aches/pain?: No Do you have any abdominal pain?: No Are you experiencing loss of taste or smell?: No Other Medical History Have you received the Flu Vaccine for this season: No Have you received the Pneumonia Vaccine: No Review of Systems Review of Systems Review of systems:: pertinent systems reviewed and negative unless documented below Review of systems (narrative): Patient awake and alert in the ER has given me a good history of what has happened to her insulin and why her blood sugars are increased Constitutional Constitutional: Reports as per HPI Eyes Eyes: Reports as per HPI ENT Ears, Nose, Mouth, and Throat: Reports as per HPI *Cardiovascular Cardiovascular: Reports as per HPI *Respiratory Respiratory: Reports as per HPI *Gastrointestinal Gastrointestinal: Reports as per HPI *Genitourinary Genitourinary: Reports as per HPI *Musculoskeletal Musculoskeletal: Reports as per HPI Integumentary/Breasts Skin/Breast: Reports as per HPI *Neurologic Neurologic: Reports as per HPI Psychiatric Psychiatric: Reports as per HPI Endocrine Endocrine: Reports as per HPI Hematologic/Lymphatic Hematologic/Lymphatic: Reports as per HPI Allergic/Immunologic Allergic/Immunologic: Reports as per HPI Meds Home Medications and Allergies Home Medications ?Medication ?Instructions ?Recorded ?Confirmed ?Type losartan 100 1 tab PO DAILY #90 tabs 08/16/24 10/04/24 Rx mg-hydrochlorothiazide 25 mg tablet pregabalin 200 mg capsule 200 mg PO BID 30 days #60 caps 08/16/24 10/04/24 Rx albuterol sulfate 2.5 mg/3 mL 1.25 mg inhalation Q4H 10/01/24 10/04/24 History (0.083 %) solution for nebulization aspirin 81 mg tablet,delayed 81 mg PO DAILY 10/01/24 10/04/24 History release atorvastatin 80 mg tablet 80 mg PO DAILY 10/01/24 10/04/24 History cariprazine 4.5 mg capsule 4.5 mg PO DAILY 10/01/24 10/04/24 History (Vraylar) desvenlafaxine succinate 50 mg 50 mg PO DAILY 10/01/24 10/04/24 History tablet,extended release 24 hr dulaglutide 0.75 mg/0.5 mL 0.75 mg SQ WEEKLY 10/01/24 10/04/24 History subcutaneous pen injector (Trulicity) empagliflozin 25 mg tablet 25 mg PO DAILYDM 10/01/24 10/04/24 History (Jardiance) ergocalciferol (vitamin D2) 1,250 50,000 unit PO WEEKLY 10/01/24 10/04/24 History mcg (50,000 unit) capsule famotidine 40 mg tablet 40 mg PO DAILY 10/01/24 10/04/24 History finerenone 10 mg tablet (Kerendia) 10 mg PO DAILY 10/01/24 10/04/24 History pantoprazole 40 mg tablet,delayed 40 mg PO DAILY 10/01/24 10/04/24 History release blood-glucose meter,continuous #1 ea 10/02/24 10/04/24 Rx (Dexcom G7 Seismic Observer) blood-glucose sensor (Dexcom G7 #1 ea 10/02/24 10/04/24 Rx Sensor device) insulin glargine 100 unit/mL (3 40 unit (0.4 mL) SQ BID 30 days #0 10/02/24 10/04/24 Rx mL) subcutaneous pen (Lantus mL Solostar U-100 Insulin) bupropion HCl 150 mg 24 hr tablet, 150 mg PO DAILY 10/04/24 10/04/24 History extended release clopidogrel 75 mg tablet 75 mg PO DAILY 10/04/24 10/04/24 History insulin NPH-regular 70-30 U-100 20 unit SQ 1700 10/04/24 10/04/24 History insulin 100 unit/mL subcutaneous pen (Humulin 70/30 U-100 KwikPen) insulin NPH-regular 70-30 U-100 40 unit SQ 1200 10/04/24 10/04/24 History insulin 100 unit/mL subcutaneous pen (Humulin 70/30 U-100 KwikPen) New Prescriptions to Start Prescriptions: Allergies Allergy/AdvReac Type Severity Reaction Status Date / Time latex (LATEX) Allergy Intermediate I-HIVES Verified 08/16/24 14:20 sulfamethoxazole (From Allergy Intermediate I-ITCHING Verified 08/16/24 14:20 BACTRIM) trimethoprim (From BACTRIM) Allergy Intermediate I-ITCHING Verified 08/16/24 14:20 lisinopril (LISINOPRIL) Allergy Unknown S-DIFF. Verified 08/16/24 14:20 BREATHING Exam Data for Last 24 hours Vital signs and Labs for Last 24 Hours: Temp Pulse Resp BP Pulse Ox O2 Del Method 98.0 F 90 28 H 175/83 H 99 Room Air 10/03/24 18:41 10/03/24 18:41 10/03/24 18:41 10/03/24 18:41 10/03/24 18:41 10/03/24 18:41 Laboratory Results - last 24 hr 10/03/24 18:30: Random Glucose 645 H* 10/03/24 18:36: WBC 8.9, RBC 4.84, Hgb 14.4, Hct 42.6, MCV 88.0, MCH 29.8, MCHC 33.8, RDW 12.7, Plt Count 169, MPV 11.7 H, Neut % (Auto) 57.8, Lymph % (Auto) 34.6, [place] % (Auto) 6.0, Eos % (Auto) 0.3, Baso % (Auto) 1.0, Neut # (Auto) 5.1, Lymph # (Auto) 3.1, [place] # (Auto) 0.5, Eos # (Auto) 0.0, Baso # (Auto) 0.1, Sodium 130 L, Potassium 5.1 D, Chloride 97 L, Carbon Dioxide 19 L, Anion Gap 19.1 H, BUN 18 H D, Creatinine 0.90 D, Estimated Creat Clear 67, Estimated GFR 65, Est GFR ( Amer) 78 D, Glucose 640 H*, Calcium 9.4, Phosphorus 3.3, Magnesium 1.8 D, Total Bilirubin 0.9, AST 70 H, ALT 61 D, Alkaline Phosphatase 124, Total Protein 7.3, Albumin 4.5, Globulin 2.8, Albumin/Globulin Ratio 1.6, Acetone Level None detected 10/03/24 20:05: VBG pH 7.36, VBG pCO2 39.1, VBG pO2 54.7 H, VBG HCO3 21.3 L, VBG Total CO2 22.5 L, VBG O2 Saturation 87.4 H, VBG Base Excess -4.2 L, VBG Lactic Acid 2.6 H I & O for Last 24 hours: Intake & Output 10/01/24 10/02/24 10/03/24 10/04/24 05:59 05:59 05:59 05:59 Weight 290 lb Constitutional Constitutional: mild distress Comments: Patient is stable at this time but definitely frustrated *Routine HEENT Exam Head: Present normocephalic and atraumatic Eye: Present EOMI ENT: Present mucous membranes moist *Routine Neck Exam Neck: Present supple *Routine Respiratory Exam Respiratory: Present CTA bilaterally, normal respiratory effort, able to speak in complete sentences and symmetric chest movement *Routine Cardiovascular Exam Cardiovascular: Present Normal S1, Normal S2 and tachycardia *Routine Abdominal Exam Abdominal: Present soft and obese *Routine Rectal Exam Rectal:: deferred *Routine Genitalia Exam Genitalia:: deferred *Routine Extremities Exam Comments: Moves all extremities well and no difficulty at this point in time Routine Back/Spine/Pelvis Exam Back/Spine: Present full ROM Comments: Patient able to sit up and move in bed without assistance *Routine Skin Exam Skin: Present intact, warm and normal turgor *Routine Neurological Exam Neurological: Present alert, oriented X3, CN II-XII intact, normal reflexes, normal tone, vision grossly intact and hearing grossly intact Comments: No acute neurological deficits were found Routine Psychiatric Exam Psychiatric: Present normal affect, normal thought process, cooperative, good insight and good judgment H&P: Result Impressions 1. Hyperglycemia related to not being able to get correct insulin after discharge from hospital Assessment and Plan *Assessment and plan (1) Toxic metabolic encephalopathy: Status: Acute Category: Medical Code(s): G92.8 - Other toxic encephalopathy (2) Hyperglycemia due to type 2 diabetes mellitus: Status: Acute Qualifiers: Diabetes mellitus bed bug exterminator insulin use: with bed bug exterminator use Qualified Code(s): E11.65 - Type 2 diabetes mellitus with hyperglycemia; Z79.4 - [facility] (current) use of insulin Category: Medical Code(s): E11.65 - Type 2 diabetes mellitus with hyperglycemia (3) Diabetes mellitus: Status: Chronic Qualifiers: Diabetes mellitus complication status: without complication Diabetes mellitus retirement insulin use: with bed bug exterminator use Diabetes mellitus type: type 2 Qualified Code(s): E11.9 - Type 2 diabetes mellitus without complications; Z79.4 - [facility] (current) use of insulin Category: Medical Code(s): E11.9 - Type 2 diabetes mellitus without complications (4) Difficulty refilling prescriptions: Status: Acute Category: Medical Code(s): Z78.9 - Other specified health status Plan 1. Patient will be admitted to the floor will have every 3 hour fingerstick blood sugars with sliding scale coverage. Recheck laboratory results in the morning making sure that electrolyte and fluid balance are normal will get with case management to [facility] able to fill short-term insulin. And then follow-up with her provider..
--- NOTE | 2024-10-03 21:43 | PC.NURSE ---
pt arrived to floor from ed via wheelchair at [id number].
[2024-10-03 21:45] VITALS: BP 175/83; PULSE 87; RESP 20; TEMP 36.8; O2SAT 97
[2024-10-03 21:58] VITALS: BP 104/54; PULSE 81; RESP 16; TEMP 36.6; O2SAT 92
[2024-10-03 22:02] LABS: POC Glucose,Bedside 453 (70-110)
[2024-10-03] MEDS: humaLOG 100 UNITS/ML 10ML VIAL (SSI) SUBCUT (22:28)
[2024-10-04] VITALS (7 sets, daily range): BP systolic 107–160; BP diastolic 52–87; PULSE 77–90; RESP 16–17; TEMP 36.7–37; O2SAT 93–97; BMI 45.5
[2024-10-04 00:14] LABS: Reflex Lactic Add Lactic Reflex
[2024-10-04] MEDS: humaLOG 100 UNITS/ML 10ML VIAL (SSI) SUBCUT ×5 (00:24→21:25)
[2024-10-04 00:40] LABS: POC Glucose,Bedside 300 (70-110)
[2024-10-04 00:54] LABS: Lactic Acid Follow Up (RFLX 1) 2.4 mmol/L (0.7-2.1)
[2024-10-04] MEDS: PREGABALIN 100MG CAPSULE 200 MG PO ×3 (01:41→21:25)
[2024-10-04 02:33] LABS: Reflex Lactic (2 hrs) Add Lactic Reflex
[2024-10-04 03:15] LABS: Lactic Acid Follow up (RFLX 2) 2.1 mmol/L (0.7-2.1)
[2024-10-04 03:27] LABS: POC Glucose,Bedside 237 (70-110)
--- NOTE | 2024-10-04 03:48 | EXP.EVENT.NO ---
Patient's blood sugars dropped to 36. During her last admission the patient told me her normal blood sugars about 250, . So we will decrease the fingerstick blood sugars from every 3 down to before meals and at bedtime and go from high to medium sliding scale
--- NOTE | 2024-10-04 05:38 | PC.NURSE ---
Alert and oriented. No complaints from patient. Q3 glucose monitoring until 0300, reading at 0300 237, per Bryson CURRICULUM AND ASSESSMENT COORDINATOR stated to hold on insulin admin at this time, recheck at 0600 and treat per sep. Bed alarm on. Call light in reach.
[2024-10-04 06:24] LABS: Basophils # 0.1 K/mm3 (0-0.2); Basophils % 0.9 % (0.1-2.0); Eosinophils # 0.1 K/mm3 (0.0-0.4); Eosinophils % 0.8 % (0.1-12.0); Hematocrit 38.7 % (37.0-47.0); Hemoglobin 13.3 g/dL (12.2-16.2); Lymphocytes # 4.5 K/mm3 (0.7-4.5); Lymphocytes % 59.4 % (10-50); Mean Corpuscular HGB Conc 34.4 g/dL (31.8-35.4); Mean Corpuscular Hemoglobin 29.6 pg (27.0-31.2); Mean Corpuscular Volume 86.2 fl (81-99); Mean Platelet Volume 11.2 fl (7.4-10.4); Monocytes # 0.5 K/mm3 (0.1-1.0); Monocytes % 7.2 % (1.7-9.3); Neutrophils # 2.4 K/mm3 (1.8-7.8); Neutrophils % 31.4 % (37.0-80.0); Platelet Count 163 K/mm3 (142-424); Red Blood Count 4.49 M/mm3 (4.20-5.40); Red Cell Distribution Width 12.5 % (11.5-17.5); White Blood Count 7.5 K/mm3 (4.8-10.8)
[2024-10-04 06:27] LABS: VBG Base Excess -2.7 mmol/L (-2.4-2.3); VBG HCO3 21.7 mmol/L (23-30); VBG PCO2 33.8 mmol/L (35-51); VBG PH 7.43 mmol/L (7.31-7.41); VBG PO2 88.7 mmol/L (28-40); VBG Total CO2 22.7 mmol/L (23-27)
[2024-10-04 06:29] LABS: Lactate Venous 2.3 mmol/L (0.4-2.0)
[2024-10-04 06:35] LABS: MANUAL DIFFERENTIAL MANUAL DIFFERENTIAL (MANUAL DIFF)
[2024-10-04] MEDS: ENOXAPARIN 40MG/0.4ML SYRINGE 40 MG SUBCUT ×2 (08:07→21:23)
[2024-10-04 08:09] LABS: Lymphocytes % 57 % (10-50); Monocytes % 4 % (2-9); Neutrophils % 39 % (42-76); Platelet Estimate Normal; RBC Morphology Normal; Total Cells Counted 100
[2024-10-04 08:35] LABS: Alanine Aminotransferase 54 U/L (12-78); Albumin Level 3.9 g/dl (3.5-5.0); Albumin/Globulin Ratio 1.4 (1.1-1.8); Alkaline Phosphatase 84 U/L (38-126); Anion Gap 11.2 mEq/L (5-15); Aspartate Amino Transferase 56 U/L (14-36); Bilirubin,Total 0.4 mg/dl (0.2-1.3); Blood Urea Nitrogen 20 mg/dl (7-17); Calcium 9.2 mg/dl (8.4-10.2); Carbon Dioxide 23 mmol/L (22.0-30.0); Chloride 103 mmol/L (98-107); Creatinine Clearance Estimated 73 mL/min (50-200); Estimated Glomerular Filt Rate 74 ml/min (>60); GFR (African American) 89 ML/MIN (>60); Globulin 2.8 g/dL (1.3-3.2); Glucose 216 mg/dl (74-100); Magnesium 2.1 mg/dl (1.6-2.3); Potassium 4.2 mmoL/L (3.5-5.1); Sodium 133 mmol/L (136-145); Total Protein,Serum 6.7 g/dl (6.3-8.2)
[2024-10-04] MEDS: INSULIN GLARGINE 100 UNITS/ML 3ML FLEXPEN 20 UNIT SUBCUT (09:21)
--- NOTE | 2024-10-04 09:24 | HMH.PHAINT1 ---
Pharmacy Intervention Comments: MEDICATION RECONCILIATION COMPLETED ON PATIENT USING EXTERNAL FILL HISTORY FROM PHARMACY AND DISCHARGE SUMMARY FROM PREVIOUS ADMISSION. 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
[2024-10-04 09:47] LABS: POC Glucose,Bedside 262 (70-110)
--- NOTE | 2024-10-04 13:58 | PC.NURSE ---
patients voiced concerns about patients home medications not being restarted today. the was very demanding and upset with staff members. I explained to the patients that I will talk to the hospitalist about restarting home medications. patients continued to argue with staff about poor patient care and proceeded to go into the nurse managers office and irate concerns that we are not doing anything for his . notified.
--- NOTE | 2024-10-04 16:50 | PC.NURSE ---
stated to use dexcom to assess patient blood sugar
[2024-10-04] MEDS: ATORVASTATIN 40MG TABLET 80 MG PO (21:23)
[2024-10-04] MEDS: FAMOTIDINE 20MG TABLET 40 MG PO (21:23)
[2024-10-04] MEDS: INSULIN GLARGINE 100 UNITS/ML 3ML FLEXPEN 40 UNIT SUBCUT (21:24)
[2024-10-04] MEDS: PANTOPRAZOLE 40MG TABLET 40 MG PO (21:25)
--- NOTE | 2024-10-04 22:24 | EXP.ACUTE.PN ---
Subjective *Date: 10/04/24 *Time: 22:24 Interval history: Patient showing some improvement this morning. Glucose doing better. Initiated long-acting insulin. Stable on room air. Patient expressed frustration that her insulin at discharge last visit was supposed to be sliding scale along with long-acting and short acting was not sent in. Only took long-acting insulin. Appears from chart that she was supposed to resume lower dose of her 7030 combo. She denies that being the plan. Denies any chest pain or shortness of breath. No nausea or vomiting. Tolerating p.o. intake Medical Exam Vital signs and Labs for Last 24 Hours: Vital Signs Temp Pulse Resp BP Pulse Ox O2 Del Method 10/04/24 21:00 Room Air 10/04/24 19:58 Room Air 10/04/24 19:57 98.1 F 77 17 144/68 H 94 L Room Air 10/04/24 19:00 Room Air 10/04/24 17:00 Room Air 10/04/24 16:00 98.1 F 87 16 160/87 H 94 L 10/04/24 15:00 Room Air 10/04/24 13:00 Room Air 10/04/24 12:00 98.2 F 87 16 148/73 H 97 10/04/24 11:00 Room Air 10/04/24 09:00 Room Air 10/04/24 08:00 Room Air 10/04/24 08:00 98.2 F 90 16 130/70 95 10/04/24 07:00 Room Air 10/04/24 05:00 Room Air 10/04/24 04:32 98.2 F 84 17 124/52 L 93 L Room Air 10/04/24 03:00 Room Air 10/04/24 01:00 Room Air 10/04/24 00:00 98.2 F 83 16 107/70 L 96 Room Air 10/03/24 23:00 Room Air Intake and Output 10/04/24 10/04/24 10/04/24 07:59 15:59 23:59 Intake Total 990 / 1950 720 / 1950 240 / 1950 Output Total 0 / 0 Balance 990 / 1950 720 / 1950 240 / 1950 Intake: Intake, Oral Amount 720 / 960 240 / 960 Intake, Total IV Amount 990 / 990 0.9 % Sodium Chloride 1000ML 1, 990 / 990 000 ml @ 999 mls/hr IV .Q1H1M ONE Rx#:[id number] Output: Output, Urine Amount 0 / 0 Other: Number of Unmeasured Voids 2 Weight 131.542 kg Patient Weight 10/04/24 23:59 Weight 131.542 kg Laboratory Results - last 24 hr 10/04/24 00:11: POC Glucose 300 H 10/04/24 00:30: Lactate 2.4 H 10/04/24 02:49: Lactate 2.1 10/04/24 03:19: POC Glucose 237 H 10/04/24 06:00: VBG pH 7.43 H, VBG pCO2 33.8 L, VBG pO2 88.7 H, VBG HCO3 21.7 L, VBG Total CO2 22.7 L, VBG O2 Saturation 97.0 H, VBG Base Excess -2.7 L, VBG Lactic Acid 2.3 H 10/04/24 06:15: WBC 7.5, RBC 4.49, Hgb 13.3, Hct 38.7, MCV 86.2, MCH 29.6, MCHC 34.4, RDW 12.5, Plt Count 163, MPV 11.2 H, Neut % (Auto) 31.4 L, Lymph % (Auto) 59.4 H, [place] % (Auto) 7.2, Eos % (Auto) 0.8, Baso % (Auto) 0.9, Neut # (Auto) 2.4, Lymph # (Auto) 4.5, [place] # (Auto) 0.5, Eos # (Auto) 0.1, Baso # (Auto) 0.1, Total Counted 100, Neutrophils % (Manual) 39 L, Lymphocytes % (Manual) 57 H, Monocytes % (Manual) 4, Platelet Estimate Normal, RBC Morphology Normal, Sodium 133 L, Potassium 4.2, Chloride 103, Carbon Dioxide 23, Anion Gap 11.2, BUN 20 H, Creatinine 0.80, Estimated Creat Clear 73, Estimated GFR 74, Est GFR ( Amer) 89, Glucose 216 H D, Calcium 9.2, Magnesium 2.1 D, Total Bilirubin 0.4, AST 56 H, ALT 54, Alkaline Phosphatase 84, Total Protein 6.7, Albumin 3.9 D, Globulin 2.8, Albumin/Globulin Ratio 1.4 10/04/24 09:21: POC Glucose 262 H I & O for Labs for Last 24 Hours: Intake & Output 10/01/24 10/02/24 10/03/24 10/04/24 23:59 23:59 23:59 23:59 Intake Total 1949 Output Total 0 / 0 Balance 1949 Weight 131.542 kg 131.542 kg Constitutional: Present no acute distress, morbidly obese, chronically ill appearing and cooperative Head: Present atraumatic and normocephalic Respiratory: Present normal respiratory effort; Absent rhonchi, wheezes or crackles Cardiac: Present Reg Rate and Rhythm GI: Present soft and normal bowel sounds; Absent distention or tenderness Extremities: Present normal inspection and full ROM; Absent edema Comment:: Dexcom glucose monitor and left upper extremity Skin: Present intact; Absent erythema Neuro: Present Grossly Intact, alert, awake, oriented x 3 and moves all extremities Assessment and Plan *Assessment and plan (1) Hyperglycemia due to type 2 diabetes mellitus: Status: Acute Qualifiers: 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 use: with fdc use Qualified Code(s): E11.65 - Type 2 diabetes mellitus with hyperglycemia; Z79.4 - senior living (current) use of insulin Category: Medical Code(s): E11.65 - Type 2 diabetes mellitus with hyperglycemia (2) Toxic metabolic encephalopathy: Status: Acute Category: Medical Code(s): G92.8 - Other toxic encephalopathy (3) Diabetes mellitus: Status: Chronic Qualifiers: Diabetes mellitus type: type 2 Diabetes mellitus complication status: without complication 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 use: with long chain dyeing machine operator use Qualified Code(s): E11.9 - Type 2 diabetes mellitus without complications; Z79.4 - senior living (current) use of insulin Category: Medical Code(s): E11.9 - Type 2 diabetes mellitus without complications (4) Difficulty refilling prescriptions: Status: Acute Category: Medical Code(s): Z78.9 - Other specified health status (5) Generalized anxiety disorder: Status: Acute Category: Medical Code(s): F41.1 - Generalized anxiety disorder (6) Morbid obesity: Status: Chronic Category: Medical Code(s): E66.01 - Morbid (severe) obesity due to excess calories Plan Hannah Jefferson is a 59-year-old female with a medical history significant for insulin-dependent diabetes who presented with mild confusion and hyperglycemia. Was just recently admitted for DKA. Discharged home with some confusion about insulin regimen. Started on basal bolus regimen at admission. Showing some improvement in glucose control this morning. Continues to require patient management to evaluate needs for insulin. Problems addressed as follows: # Hyperglycemia #Insulin-dependent diabetes ? DKA resolved from last visit. Initiated on basal bolus regimen. A1c last week of 12.9. Resume insulin glargine 40 units twice daily. Initiate high intensity sliding scale -Necessitated approximately 10 units 3 times a day of short acting last visit. Will evaluate needs over 24 hours with plan to discharge home tomorrow on basal bolus regimen with clear communication. -Use Dexcom to monitor glucose as it correlates with her fingersticks -Previously intolerant of metformin due to diarrhea - Morning glucose 216, repeat CBC, CMP, magnesium ordered for the morning #CAD #Hypertension #Hyperlipidemia ? Continue aspirin, Plavix, statin, losartan, hydrochlorothiazide. #Mood disorder ? Continue home Wellbutrin, desvenlafaxine, Vraylar. #GERD ? Continue PPI. Full code Regular diet Lovenox 40 mg subcu daily, renally dosed based on weight
--- NOTE | 2024-10-05 03:11 | PC.NURSE ---
Addendum entered by Lacy Eller RN 10/05/24 05:03: Patient care returning to Leela Dao RN due to reverse of staffing arrangements. Original Note: Patient care transferred from Leela Dao RN to vt at this time due to change of current staffing arrangements. Per hand-off report, the patient has been observed to have eyes closed, respirations even and unlabored on room air, and no apparent distress throughout the night. She has not had any reported complaints while under the previous care of Leela Dao RN. Scheduled medications were administered as appropriately per MAR. She is alert and oriented x4. Dexcom has been previously approved to be used for her glucose checks; insulin coverage to be given accordingly. At this time, the patient was assessed ocularly by me to be resting in bed, and she remains without any further complaints. No acute changes present. Call light within reach.
[2024-10-05 04:00] VITALS: BP 147/76; PULSE 83; RESP 16; TEMP 37; O2SAT 96; BMI 40.0
[2024-10-05] MEDS: humaLOG 100 UNITS/ML 10ML VIAL (SSI) SUBCUT (05:56)
--- NOTE | 2024-10-05 06:10 | PC.NURSE ---
no changes t/o the shift. BGL per dexcom in 200's. insulin given per sep.
[2024-10-05 06:46] LABS: Basophils # 0.1 K/mm3 (0-0.2); Basophils % 0.9 % (0.1-2.0); Eosinophils # 0.1 K/mm3 (0.0-0.4); Eosinophils % 1.2 % (0.1-12.0); Hematocrit 41.5 % (37.0-47.0); Hemoglobin 13.9 g/dL (12.2-16.2); Lymphocytes # 4.7 K/mm3 (0.7-4.5); Lymphocytes % 54.6 % (10-50); Mean Corpuscular HGB Conc 33.5 g/dL (31.8-35.4); Mean Corpuscular Hemoglobin 29.7 pg (27.0-31.2); Mean Corpuscular Volume 88.7 fl (81-99); Mean Platelet Volume 11.1 fl (7.4-10.4); Monocytes # 0.4 K/mm3 (0.1-1.0); Monocytes % 4.7 % (1.7-9.3); Neutrophils # 3.3 K/mm3 (1.8-7.8); Neutrophils % 38.4 % (37.0-80.0); Platelet Count 174 K/mm3 (142-424); Red Blood Count 4.68 M/mm3 (4.20-5.40); Red Cell Distribution Width 12.6 % (11.5-17.5); White Blood Count 8.6 K/mm3 (4.8-10.8)
[2024-10-05 06:57] LABS: Alanine Aminotransferase 43 U/L (12-78); Albumin Level 3.9 g/dl (3.5-5.0); Albumin/Globulin Ratio 1.3 (1.1-1.8); Alkaline Phosphatase 82 U/L (38-126); Anion Gap 11.1 mEq/L (5-15); Aspartate Amino Transferase 44 U/L (14-36); Bilirubin,Total 0.7 mg/dl (0.2-1.3); Blood Urea Nitrogen 18 mg/dl (7-17); Calcium 9.1 mg/dl (8.4-10.2); Carbon Dioxide 23 mmol/L (22.0-30.0); Chloride 105 mmol/L (98-107); Creatinine Clearance Estimated 162 mL/min (50-200); Estimated Glomerular Filt Rate 86 ml/min (>60); GFR (African American) 104 ML/MIN (>60); Glucose 199 mg/dl (74-100); Potassium 4.1 mmoL/L (3.5-5.1); Sodium 135 mmol/L (136-145); Total Protein,Serum 6.9 g/dl (6.3-8.2)
[2024-10-05 07:08] LABS: MANUAL DIFFERENTIAL MANUAL DIFFERENTIAL (MANUAL DIFF)
--- NOTE | 2024-10-05 07:56 | EXP.DC.SUM ---
General Admission date:: 10/03/24 Discharge date: 10/05/24 HPI HPI HPI: This patient who was recently been discharged after being here with DKA. Patient had been on an insulin drip improved moved to the floor and then weaned. Patient was discharged from the hospital with orders for regular insulin that [facility] the patient was sent to [facility]. For some reason Yaritza had canceled these prescriptions and she was only taking Lantus. He is come back to the emergency room with blood sugars greater than 600. Presently is alert and oriented. I do agree with the ER provider with not having insulin at home with the present condition to keep her from going into DKA we will go ahead and admit her to the floor plan on doing fingerstick blood sugars every 3 with sliding scale. I do not feel that the patient needs an insulin drip at this point in time but will be monitored through the night. Plan will consist of consult for case management to make sure that the patient is able to get short-term insulin before she is released from the hospital tomorrow. I do feel that this will be less than a 24-hour admission. But with the patient's present condition wanted make sure she does not decompensate and we will have to monitor for electrolyte and for fluid balance. Hospital Course Hospital Course Hospital Course: Hannah Whitman is a 59-year-old female with a medical history significant for insulin-dependent diabetes who presented with mild confusion and hyperglycemia. Was just recently admitted for DKA. Discharged home with some confusion about insulin regimen. Started on basal bolus regimen at admission. Showed improvement in glucose control. Extensive discussion on day of discharge about regimen change. Patient states understanding. Given improvement in glucose control and tolerance of nutrition along with tolerance of medications, will discharge home with further management as an outpatient. Problems addressed as follows: # Hyperglycemia #Insulin-dependent diabetes ? DKA resolved from last visit. Initiated on basal bolus regimen. A1c last week of 12.9. Patient unfortunately had confusion with her insulin regimen that likely led to readmission. Adjustments made during this admission with good response. Questions answered for patient. Significant counseling on diabetes regimen and adjustments to follow if glucose remains high or if patient misses a meal. At this time we will continue insulin glargine 40 units twice daily. Initiated on mealtime insulin with 12 units Humalog 3 times a day with meals. If glucose before meal is 80 or less, recommend half dose (6 units). If glucose before meal is greater than 300, recommend 18 units. Discussed titration if her glucose consistently remains above 300 for the next 3 days, and would increase to 14 units with meals at that time. Morning glucose on day of discharge are 199. Has Dexcom showing improved tolerance. Most glucoses below 300 during admission. Continue to remain at home regimen including Jardiance 25 mg daily, Trulicity 0.75 mg weekly. -Continue pregabalin 200 mg twice daily for neuropathy. #CAD #Hypertension #Hyperlipidemia ? Continue aspirin, Plavix, statin, losartan, hydrochlorothiazide. #Mood disorder ? Continue home Wellbutrin, desvenlafaxine, Vraylar. #GERD ? Continue PPI. Total time spent on discharge 32 minutes in counseling, documentation, chart review, and direct care with patient. Exam Data for Last 24 hours Vital signs and Labs for Last 24 Hours: Temp Pulse Resp BP Pulse Ox O2 Del Method 98.6 F 83 16 147/76 H 96 Room Air 10/05/24 04:00 10/05/24 04:00 10/05/24 04:00 10/05/24 04:00 10/05/24 04:00 10/05/24 06:52 Laboratory Results - last 24 hr 10/04/24 06:15: Total Counted 100, Neutrophils % (Manual) 39 L, Lymphocytes % (Manual) 57 H, Monocytes % (Manual) 4, Platelet Estimate Normal, RBC Morphology Normal, Sodium 133 L, Potassium 4.2, Chloride 103, Carbon Dioxide 23, Anion Gap 11.2, BUN 20 H, Creatinine 0.80, Estimated Creat Clear 73, Estimated GFR 74, Est GFR ( Amer) 89, Glucose 216 H D, Calcium 9.2, Magnesium 2.1 D, Total Bilirubin 0.4, AST 56 H, ALT 54, Alkaline Phosphatase 84, Total Protein 6.7, Albumin 3.9 D, Globulin 2.8, Albumin/Globulin Ratio 1.4 10/04/24 09:21: POC Glucose 262 H 10/05/24 06:08: WBC 8.6, RBC 4.68, Hgb 13.9, Hct 41.5, MCV 88.7, MCH 29.7, MCHC 33.5, RDW 12.6, Plt Count 174, MPV 11.1 H, Neut % (Auto) 38.4, Lymph % (Auto) 54.6 H, [place] % (Auto) 4.7, Eos % (Auto) 1.2, Baso % (Auto) 0.9, Neut # (Auto) 3.3, Lymph # (Auto) 4.7 H, [place] # (Auto) 0.4, Eos # (Auto) 0.1, Baso # (Auto) 0.1, Sodium 135 L, Potassium 4.1, Chloride 105, Carbon Dioxide 23, Anion Gap 11.1, BUN 18 H, Creatinine 0.70, Estimated Creat Clear 162, Estimated GFR 86, Est GFR ( Amer) 104, Glucose 199 H, Calcium 9.1, Magnesium 2.0, Total Bilirubin 0.7, AST 44 H, ALT 43, Alkaline Phosphatase 82, Total Protein 6.9, Albumin 3.9, Globulin 3.0, Albumin/Globulin Ratio 1.3 I & O for Last 24 hours: Intake & Output 10/02/24 10/03/24 10/04/24 10/05/24 23:59 23:59 23:59 23:59 Intake Total 1949 Output Total 0 / 0 0 / 0 Balance 1949 0 / 0 Weight 131.542 kg 131.542 kg 115.666 kg Constitutional Constitutional: no acute distress, morbidly obese and cooperative *Routine HEENT Exam Head: Present normocephalic Eye: Present EOMI and PERRL ENT: Present mucous membranes moist *Routine Neck Exam Neck: Present supple; Absent lymphadenopathy *Routine Respiratory Exam Respiratory: Present CTA bilaterally; Absent rhonchi, wheezes or crackles *Routine Cardiovascular Exam Cardiovascular: Present RRR *Routine Abdominal Exam Abdominal: Present soft and normoactive bowel sounds; Absent tenderness *Routine Rectal Exam Patient deferred: visual exam *Routine Exam Patient deferred: external exam *Routine Extremities Exam Extremities: Absent cyanosis, clubbing or edema *Routine Skin Exam Skin: Present warm; Absent rash *Routine Neurological Exam Neurological: Present alert, oriented X3 and moving all extremities; Absent altered mental status Results Data Completed and Pending Labs on day of discharge: Labs from last 24 hours 10/05/24 10/04/24 10/04/24 06:08 09:21 06:15 WBC 8.6 RBC 4.68 Hgb 13.9 Hct 41.5 MCV 88.7 MCH 29.7 MCHC 33.5 RDW 12.6 Plt Count 174 MPV 11.1 H Neut % (Auto) 38.4 Lymph % (Auto) 54.6 H [place] % (Auto) 4.7 Eos % (Auto) 1.2 Baso % (Auto) 0.9 Neut # (Auto) 3.3 Lymph # (Auto) 4.7 H [place] # (Auto) 0.4 Eos # (Auto) 0.1 Baso # (Auto) 0.1 Total Counted 100 Neutrophils % (Manual) 39 L Lymphocytes % (Manual) 57 H Monocytes % (Manual) 4 Platelet Estimate Normal RBC Morphology Normal Sodium 135 L 133 L Potassium 4.1 4.2 Chloride 105 103 Carbon Dioxide 23 23 Anion Gap 11.1 11.2 BUN 18 H 20 H Creatinine 0.70 0.80 Estimated Creat Clear 162 73 Estimated GFR 86 74 Est GFR ( Amer) 104 89 Glucose 199 H 216 H D POC Glucose 262 H Calcium 9.1 9.2 Magnesium 2.0 2.1 D Total Bilirubin 0.7 0.4 AST 44 H 56 H ALT 43 54 Alkaline Phosphatase 82 84 Total Protein 6.9 6.7 Albumin 3.9 3.9 D Globulin 3.0 2.8 Albumin/Globulin Ratio 1.3 1.4 DS: Diagnosis Discharge Diagnosis (1) Hyperglycemia due to type 2 diabetes mellitus: Status: Acute Code(s): E11.65 - Type 2 diabetes mellitus with hyperglycemia Qualifiers: Diabetes mellitus lobsterman insulin use: with fci use Qualified Code(s): E11.65 - Type 2 diabetes mellitus with hyperglycemia; Z79.4 - equipment operator intermodal yard (current) use of insulin (2) Toxic metabolic encephalopathy: Status: Resolved Code(s): G92.8 - Other toxic encephalopathy (3) Diabetes mellitus: Status: Chronic Code(s): E11.9 - Type 2 diabetes mellitus without complications Qualifiers: Diabetes mellitus complication status: without complication Diabetes mellitus lobsterman insulin use: with fci use Diabetes mellitus type: type 2 Qualified Code(s): E11.9 - Type 2 diabetes mellitus without complications; Z79.4 - equipment operator intermodal yard (current) use of insulin (4) Difficulty refilling prescriptions: Status: Acute Code(s): Z78.9 - Other specified health status (5) Generalized anxiety disorder: Status: Acute Code(s): F41.1 - Generalized anxiety disorder (6) Morbid obesity: Status: Chronic Code(s): E66.01 - Morbid (severe) obesity due to excess calories Meds Home Medications and Allergies Home Medications ?Medication ?Instructions ?Recorded ?Confirmed ?Type losartan 100 1 tab PO DAILY #90 tabs 08/16/24 10/04/24 Rx mg-hydrochlorothiazide 25 mg tablet pregabalin 200 mg capsule 200 mg PO BID 30 days #60 caps 08/16/24 10/04/24 Rx albuterol sulfate 2.5 mg/3 mL 1.25 mg inhalation Q4H 10/01/24 10/04/24 History (0.083 %) solution for nebulization aspirin 81 mg tablet,delayed 81 mg PO DAILY 10/01/24 10/04/24 History release atorvastatin 80 mg tablet 80 mg PO DAILY 10/01/24 10/04/24 History cariprazine 4.5 mg capsule 4.5 mg PO DAILY 10/01/24 10/04/24 History (Vraylar) desvenlafaxine succinate 50 mg 50 mg PO DAILY 10/01/24 10/04/24 History tablet,extended release 24 hr dulaglutide 0.75 mg/0.5 mL 0.75 mg SQ WEEKLY 10/01/24 10/04/24 History subcutaneous pen injector (Trulicity) empagliflozin 25 mg tablet 25 mg PO DAILYDM 10/01/24 10/04/24 History (Jardiance) ergocalciferol (vitamin D2) 1,250 50,000 unit PO WEEKLY 10/01/24 10/04/24 History mcg (50,000 unit) capsule famotidine 40 mg tablet 40 mg PO DAILY 10/01/24 10/04/24 History finerenone 10 mg tablet (Kerendia) 10 mg PO DAILY 10/01/24 10/04/24 History pantoprazole 40 mg tablet,delayed 40 mg PO DAILY 10/01/24 10/04/24 History release blood-glucose meter,continuous #1 ea 10/02/24 10/04/24 Rx (Dexcom G7 Framing Mill Operator) blood-glucose sensor (Dexcom G7 #1 ea 10/02/24 10/04/24 Rx Sensor device) insulin glargine 100 unit/mL (3 40 unit (0.4 mL) SQ BID 30 days #0 10/02/24 10/04/24 Rx mL) subcutaneous pen (Lantus mL Solostar U-100 Insulin) bupropion HCl 150 mg 24 hr tablet, 150 mg PO DAILY 10/04/24 10/04/24 History extended release clopidogrel 75 mg tablet 75 mg PO DAILY 10/04/24 10/04/24 History insulin lispro 100 unit/mL 12 unit (0.12 mL) SQ AC 30 days 10/05/24 Rx subcutaneous solution (Humalog #10 mL U-100 Insulin) New Prescriptions to Start Prescriptions: insulin lispro [Humalog U-100 Insulin] Casey Dueñas Allergies Allergy/AdvReac Type Severity Reaction Status Date / Time latex (LATEX) Allergy Intermediate I-HIVES Verified 08/16/24 14:20 sulfamethoxazole (From Allergy Intermediate I-ITCHING Verified 08/16/24 14:20 BACTRIM) trimethoprim (From BACTRIM) Allergy Intermediate I-ITCHING Verified 08/16/24 14:20 lisinopril (LISINOPRIL) Allergy Unknown S-DIFF. Verified 08/16/24 14:20 BREATHING Discharge Plan Disposition Patient Disposition: Home, Self-Care Condition: Fair Follow up Plan Follow up with: Derrick De La Cruz DO [Staff Physician] - 10/12/24 10:00 am Prescriptions/Medication Reconciliation: New insulin lispro [Humalog U-100 Insulin] 100 unit/mL Solution 12 unit SQ AC 30 Days Qty: 10 0RF Continued losartan-hydrochlorothiazide 100-25 mg tablet 1 tab PO DAILY Qty: 90 0RF pregabalin 200 mg capsule 200 mg PO BID 30 Days Qty: 60 2RF atorvastatin 80 mg tablet 80 mg PO DAILY famotidine 40 mg tablet 40 mg PO DAILY pantoprazole 40 mg tablet,delayed release (DR/EC) 40 mg PO DAILY desvenlafaxine succinate 50 mg tablet extended release 24 hr 50 mg PO DAILY aspirin 81 mg tablet,delayed release (DR/EC) 81 mg PO DAILY ergocalciferol (vitamin D2) 1,250 mcg (50,000 unit) capsule 50,000 unit PO WEEKLY Patient Comments: TAKE ONE CAPSULE BY MOUTH ONCE A WEEK Trulicity 0.75 mg/0.5 mL pen injector 0.75 mg SQ WEEKLY albuterol sulfate 2.5 mg /3 mL (0.083 %) solution for nebulization 1.25 mg inhalation Q4H Jardiance 25 mg tablet 25 mg PO DAILYDM Patient Comments: TAKE ONE TABLET BY MOUTH EVERY DAY Vraylar 4.5 mg capsule 4.5 mg PO DAILY Patient Comments: TAKE ONE CAPSULE BY MOUTH EVERY DAY FOR ANXIETY Kerendia 10 mg tablet 10 mg PO DAILY Patient Comments: TAKE ONE TABLET BY MOUTH EVERY DAY (DME) Dexcom G7 Sensor Device See Rx Instructions .Route Qty: 1 0RF Rx Instructions: As directed (DME) Dexcom G7 Framing Mill Operator Misc See Rx Instructions .Route Qty: 1 0RF Rx Instructions: As directed insulin glargine [Lantus Solostar U-100 Insulin] 100 unit/mL (3 mL) insulin pen 40 unit SQ BID 30 Days Qty: 0 0RF clopidogrel 75 mg tablet 75 mg PO DAILY bupropion HCl 150 mg tablet extended release 24 hr 150 mg PO DAILY Discontinued Humulin 70/30 U-100 KwikPen 100 unit/mL (70-30) insulin pen 40 unit SQ 1200 Patient Comments: INJECT 80 UNITS SUBCUTANEOUSLY AT lunchtime meal AND INJECT 40 UNITS AT evening meal Humulin 70/30 U-100 KwikPen 100 unit/mL (70-30) insulin pen 20 unit SQ 1700 Patient Comments: INJECT 80 UNITS SUBCUTANEOUSLY AT lunchtime meal AND INJECT 40 UNITS AT evening meal Problem Reconciliation Problems Reviewed?: Yes Patient Discharge Instructions ACTIVITY: Continue current activity DIET: continue same diet Additional Instructions: If blood sugar before meals is less than 80, decrease short acting insulin dose to 6 units. If blood sugar before meals is greater than 300, increase to 18 units (mealtime +6 units). If after 3 days, blood sugar consistently above 300, increase mealtime from 12 units to 14 units. Please discuss Jardiance with PCP. Print Language: [place] Islander Providers Primary Care Provider: Provider,Referral Admit Provider: Ezequiel Brewster Attending Provider: Ezequiel Brwester
[2024-10-05 08:00] VITALS: BP 164/71; PULSE 87; RESP 16; TEMP 36.6; O2SAT 97
[2024-10-05] MEDS: INSULIN GLARGINE 100 UNITS/ML 3ML FLEXPEN 40 UNIT SUBCUT (08:25)
[2024-10-05] MEDS: ASPIRIN EC 81MG TABLET 81 MG PO (08:27)
[2024-10-05] MEDS: buPROPion HCl SR 150MG TAB 150 MG PO (08:27)
[2024-10-05] MEDS: EMPAGLIFLOZIN 25MG TABLET 25 MG PO (08:27)
[2024-10-05] MEDS: CLOPIDOGREL 75MG TAB 75 MG PO (08:27)
[2024-10-05] MEDS: ENOXAPARIN 40MG/0.4ML SYRINGE 40 MG SUBCUT (08:28)
[2024-10-05] MEDS: PREGABALIN 100MG CAPSULE 200 MG PO (08:34)
[2024-10-05 09:02] LABS: Lymphocytes % 56 % (10-50); Monocytes % 2 % (2-9); Neutrophils % 42 % (42-76); Total Cells Counted 100
[2024-10-05 09:03] LABS: Platelet Estimate Normal; RBC Morphology Normal
--- NOTE | 2024-10-06 10:05 | SW/DCPLANNER ---
Spoke with patient on the phone. Patient stated that she is doing great. Patient stated that she is aware of her upcoming appointments. Patient stated that she was able to get her medicine from clinic pharmacy and that they brought it to her bedside before being discharged.Patient stated that she has no concerns or questions at this time. Judah Bauer
== END 2024-10-05 10:57 | disposition home or self-care (01) ==
LOC: ER 21:08 → 2ND 21:51
PROVIDERS: Internal Medicine Adolescent Medicine; Nurse Practitioner Family; Physician Assistant; Admitting Provider Student in an Organized Health Care Education/Training Program; Emergency Provider Student in an Organized Health Care Education/Training Program; Visit Provider Student in an Organized Health Care Education/Training Program
DX: E11.65 Type 2 diabetes mellitus with hyperglycemia (principal); T38.3X5A Adverse effect of insulin and oral hypoglycemic [antidiabetic] drugs, initial encounter; Z55.6 Problems related to health literacy; G92.8 Other toxic encephalopathy; F41.1 Generalized anxiety disorder; E66.01 Morbid (severe) obesity due to excess calories; Z68.41 Body mass index [BMI] 40.0-44.9, adult; I10 Essential (primary) hypertension; E78.5 Hyperlipidemia, unspecified; F17.210 Nicotine dependence, cigarettes, uncomplicated; Z79.4 Long term (current) use of insulin; K21.9 Gastro-esophageal reflux disease without esophagitis; I25.10 Atherosclerotic heart disease of native coronary artery without angina pectoris; Z82.49 Family history of ischemic heart disease and other diseases of the circulatory system; Z88.0 Allergy status to penicillin; Z88.2 Allergy status to sulfonamides; Z88.8 Allergy status to other drugs, medicaments and biological substances; Z91.040 Latex allergy status; Z79.899 Other long term (current) drug therapy; Z79.82 Long term (current) use of aspirin; Z79.84 Long term (current) use of oral hypoglycemic drugs
CPT/HCPCS: 36415; 80053; 82009; 82803; 82947; 82962; 83605; 83735; 84100; 85007; 85025; 85027; 99291; G0378; J1650; J7030

== ENCOUNTER 2024-10-12 11:30 | Outpatient (CLI) | payer MEDICAID, SELFPAY ==
[2024-10-12 13:43] LABS: Creatinine,Urine Random 55 mg/dL (Not Estab.); Microalbumin < 6.000 mg/L (0-16.7)
== END 2024-10-12 23:59 | disposition home or self-care (01) ==
LOC: LAB.DROPOF 14:09
PROVIDERS: PCP Internal Medicine; Visit Provider Internal Medicine
DX: E11.9 Type 2 diabetes mellitus without complications (principal); Z79.4 Long term (current) use of insulin
CPT/HCPCS: 82043; 82570